=== PATIENT | male | born 1975 | race Caucasian/White ===

== ENCOUNTER 2016-06-19 19:23 | Emergency (ER) | payer OTHER ==
[2016-06-19] MEDS ORDERED: PHENERGAN 25 MG/ML VIAL IM STA (19:27)
[2016-06-19 19:30] VITALS: BP 113/76; TEMP 98.8; BMI 24.3
[2016-06-19 20:00] LABS: BASOPHILS # (AUTO) 0.1 K/uL (0-0.2); EOSINOPHILS # (AUTO) 0.5 K/ul (0.0-0.7); EOSINOPHILS % (AUTO) 5.8 % (0.0-7.0); HEMATOCRIT 46.3 % (42.0-52.0); HEMOGLOBIN 15.6 g/dl (14.0-18.0); IMMATURE GRANULOCYTE % (AUTO) 0.4 % (0.0-5.0); LYMPHOCYTES # (AUTO) 2.8 K/uL (0.60-3.4); LYMPHOCYTES % (AUTO) 31.6 (10.0-50.0); MEAN CORPUSCULAR HEMOGLOBIN 28.8 pg (27.0-31.0); MEAN CORPUSCULAR HGB CONC 33.7 (31.8-35.4); MEAN CORPUSCULAR VOLUME 85.4 fl (80.0-94.0); MONOCYTES # (AUTO) 0.8 K/uL (0.4-2.0); MONOCYTES % (AUTO) 9.2 (0-10); NEUTROPHILS # (AUTO) 4.6 K/ul (2.0-6.9); PLATELET COUNT 249 10^3/uL (140-440); RED BLOOD COUNT 5.42 10^6/ul (4.70-6.10); WHITE BLOOD COUNT 8.93 K/ul (4.2-10.2)
[2016-06-19 20:06] LABS: BILIRUBIN,URINE Negative (NEGATIVE); KETONES,URINE Negative (NEGATIVE); LEUKOCYTE ESTERASE ,URINE Negative (NEGATIVE); NITRITE,URINE Negative (NEGATIVE); PH,URINE 5.5 (5-9); PROTEIN,URINE Negative (NEGATIVE); URINE, BLOOD Negative (NEGATIVE)
[2016-06-19 20:07] LABS: ADD URINE MICROSCOPIC NO
--- NOTE | 2016-06-19 20:13 | ED.PDOC ---
General ED Provider: Dr. TY STALLINGS-ER Chief Complaint: Nausea/Vomiting Stated Complaint: im vomitnig and having body aches Time Seen by Physician: 19:30 Mode of Arrival: Walk-In Information Source: Patient Exam Limitations: No limitations Primary Care Provider: JUSTIN GREENFIELD Nursing and Triage Documentation Reviewed and Agree: Yes GI Complaint Exam - Vomiting/Diarrhea Complaint/Exam Onset/Duration: 2 days Symptoms Are: Still present Episodes of Vomiting over last 24 Hours: 3 Episodes of Diarrhea Over Last 24 Hours: 2 Initial Severity: Mild Current Severity: Mild Character of Vomiting: Reports: Non-bilious Character of Diarrhea: Reports: Watery Aggravating: Reports: None Alleviating: Reports: None Associated Signs and Symptoms: Denies: Dizziness, Light-headedness, Melena, Hematemesis, Fever, Abdominal pain, Cramping Kussmaul Respirations Present: No Differential Diagnoses: Dehydration, Viral Gastroenteritis Review of Systems - Review Of Systems Constitutional: Reports: No symptoms Eyes: Reports: No symptoms Ears, Nose, Mouth, Throat: Reports: No symptoms Respiratory: Reports: No symptoms Cardiac: Reports: No symptoms GI: Reports: Diarrhea, Nausea, Vomiting : Reports: No symptoms Musculoskeletal: Reports: No symptoms Skin: Reports: No symptoms Neurological: Reports: No symptoms Endocrine: Reports: No symptoms Hematologic/Lymphatic: Reports: No symptoms All Other Systems: Reviewed and Negative Past Medical History - Past Medical History Previously Healthy: Yes Endocrine: Reports: None, Dyslipidemia Cardiovascular: Reports: None Respiratory: Reports: Asthma Hematological: Reports: None Gastrointestinal: Reports: None Genitourinary: Reports: None Neuro/Psych: Reports: Migraine, Seizure, Anxiety, Depression Musculoskeletal: Reports: None Cancer: Reports: None 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 - Surgical History General Surgical History: Reports: Tonsillectomy, Adenoidectomy, Orthopedic ( WRIST SURGERY), Other (EYE, EAR), Unknown - Family History Family History: Reports: Unknown - Social History Smoking Status: Current every day smoker, Heavy tobacco smoker Hx Substance Use: No Alcohol Screening: None - Immunizations Tetanus Shot up to Date: Yes Physical Exam - Physical Exam Appearance: Well-appearing Eyes: CIARA, EOMI, Conjunctiva clear ENT: Ears normal, Nose normal, Oropharynx normal Neck: Supple Respiratory: Airway patent, Breath sounds clear, Breath sounds equal, Respirations nonlabored Cardiovascular: RRR, Pulses normal, No rub, No murmur GI/: Soft, Nontender, No masses, Bowel sounds normal, No Organomegaly Musculoskeletal: Normal strength, ROM intact, No edema, No calf tenderness Skin: Warm, Dry, Normal color Neurological: Sensation intact, Motor intact, Reflexes intact, Cranial nerves intact, Alert, Oriented Psychiatric: Affect appropriate, Mood appropriate Interpretation - Radiology Interpretation Radiology Interpretation By: ED Physician Radiology Results: Negative Exam Interpreted: CXR Re-Evaluation - Re-Evaluation Time of Re-Evaluation: 20:12 Status: Improved (sitting on exam bed--texting--in nad) Vital Signs Stable: Yes Pain Level: 0 Appearance: NAD Lungs: Clear Skin: Warm and Dry Neuro: Alert and Oriented X3 CV: RRR Critical Care Note - Critical Care Note Total Time (mins): 0 Course - Course Hematology/Chemistry: 06/19/16 19:45 06/19/16 19:45 Orders, Labs, Meds: Lab Review 06/19/16 06/19/16 19:45 19:58 WBC 8.93 RBC 5.42 Hgb 15.6 Hct 46.3 MCV 85.4 MCH 28.8 MCHC 33.7 RDW Coeff of Deisi 12.9 Plt Count 249 Immature Gran % (Auto) 0.4 Neut % (Auto) 52.0 Lymph % (Auto) 31.6 [place] % (Auto) 9.2 Eos % (Auto) 5.8 Baso % (Auto) 1.0 Immature Gran # (Auto) 0.0 Neut # 4.6 Lymph # 2.8 [place] # 0.8 Eos # 0.5 Baso # 0.1 Sodium 141 Potassium 4.3 Chloride 107 Carbon Dioxide 23 Anion Gap 15.3 BUN 13 Creatinine 0.95 Estimated GFR (MDRD) 88.00 BUN/Creatinine Ratio 13.68 Glucose 102 H Calcium 9.4 Total Bilirubin 0.44 AST 18 ALT 36 Alkaline Phosphatase 76 Total Protein 7.1 Albumin 4.1 Globulin 3.0 Albumin/Globulin Ratio 1.37 Amylase 77 Lipase 25 Urine Color Yellow Urine Clarity Clear Urine pH 5.5 Ur Specific [place] 1.025 Urine Protein Negative Urine Glucose (UA) Negative Urine Ketones Negative Urine Blood Negative Urine Nitrite Negative Urine Bilirubin Negative Urine Urobilinogen 0.2 Ur Leukocyte Esterase Negative Influenza A (Rapid) Negative Influenza B (Rapid) Negative Orders Category Date Time Status AMYLASE Stat LAB 06/19/16 19:45 Completed CBC W/ AUTO DIFF Stat LAB 06/19/16 19:45 Completed COMPREHENSIVE METABOLIC PANEL Stat LAB 06/19/16 19:45 Completed LIPASE Stat LAB 06/19/16 19:45 Completed MOLECULAR GROUP A STREP Stat LAB 06/19/16 19:58 Results RAPID FLU A/B Stat LAB 06/19/16 19:58 Completed STREP SCREEN Stat LAB 06/19/16 19:58 Results URINALYSIS C & S IF INDICATED Stat LAB 06/19/16 19:58 Completed Promethazine HCl [Phenergan 25 mg/ml Vial] MEDS 06/19/16 19:27 Discontinued 25 mg IM ONCE STA ABDOMEN 1 VIEW Stat RADS 06/19/16 19:26 Taken CHEST, 2 VIEWS PA & LAT Stat RADS 06/19/16 19:26 Taken Medications Discontinued Medications Generic Name Dose Route Start Last Admin Trade Name Freq PRN Reason Stop Dose Admin Promethazine HCl 25 mg 06/19/16 19:27 06/19/16 19:52 Phenergan 25 Mg/Ml Vial IM 06/19/16 19:28 25 mg ONCE STA Administration Vital Signs: Temp Pulse Resp BP Pulse Ox 06/19/16 19:24 98.8 F 89 18 113/76 99 Departure - Departure Time of Disposition: 20:28 Disposition: HOME SELF-CARE Discharge Problem: Enteritis Instructions: Enteritis (ED) Condition: Good Pt referred to PMD for follow-up: Yes Additional Instructions: f/u with pcp==clear liquids for 24hrs and advance Allergies/Adverse Reactions: Allergies tramadol Allergy (Severe, Verified 06/19/16 19:30) itching all over dextromethorphan HBr [From NyQuil] Adverse Reaction (Verified 06/19/16 19:30) doxylamine [From NyQuil] Adverse Reaction (Verified 06/19/16 19:30) prochlorperazine edisylate [From Compazine] Adverse Reaction (Verified 06/19/16 19:30) prochlorperazine maleate [From Compazine] Adverse Reaction (Verified 06/19/16 19 :30) Itching pseudoephedrine HCl [From NyQuil] Adverse Reaction (Verified 06/19/16 19:30) Itching Home Medications: Ambulatory Orders Albuterol Sulfate [Proair Hfa] 2 puff IH Q4H PRN 11/26/15 Simvastatin 20 mg PO DAILY 02/19/16 Fluticasone Propionate 110 Mcg [Flovent Hfa 110 Mcg] 2 puff IH BID 02/29/16 Hydrocodone Bit/Acetaminophen [[place] 7.5-325] 1 tab PO DAILY PRN 05/27/16 Diphenhydramine HCl [Benadryl] 25 mg PO ONCE PRN 06/19/16 Disposition Discussed With: Patient
[2016-06-19 20:17] LABS: FLU INTERNAL QC INTERNAL QC VALID; RAPID FLU A NEGATIVE (NEGATIVE); RAPID FLU B NEGATIVE (NEGATIVE)
[2016-06-19 20:19] LABS: ALBUMIN 4.1 g/dL (3.4-5.0); ALBUMIN/GLOBULIN RATIO 1.37; ANION GAP 15.3; BILIRUBIN,TOTAL 0.44 mg/dL (0.00-1.20); BUN/CREATININE RATIO 13.68; CALCIUM 9.4 mg/dL (8.2-10.2); CREATININE 0.95 mg/dL (0.60-1.10); POTASSIUM 4.3 mmol/L (3.5-5.1); TOTAL PROTEIN 7.1 g/dL (6.4-8.2)
--- NOTE | 2016-06-19 22:31 | DI ---
EXAM: Two views of the chest. History: Fever. Comparison: Chest radiograph 07/05/2015 Findings: Heart size is normal. No focal consolidation. No appreciable pleural fluid and no pneum othorax. No acute osseous abnormalities. Impression: No acute cardiopulmonary process.
--- NOTE | 2016-06-19 22:34 | DI ---
EXAM: Single view of the abdomen. History: Fever and vomiting. Findings: Nonspecific but nonobstructive bowel gas pattern. No free intraperitoneal air. No suspi cious calcifications and no acute osseous abnormalities. Impression: No acute radiographic findings within the abdomen.
== END 2016-06-19 20:39 | disposition home or self-care (01) ==
LOC: ED 19:23
DX: K52.9 Noninfective gastroenteritis and colitis, unspecified (principal); F17.210 Nicotine dependence, cigarettes, uncomplicated
CPT/HCPCS: 36415; 80053; 81001; 82150; 83690; 85025; 87651; 87804; 87880; 96372; 99283

== ENCOUNTER 2016-07-17 23:54 | Emergency (ER) ==
[2016-07-17] MEDS ORDERED: DILAUDID 2 MG/ML SYRINGE IM STA (23:58)
[2016-07-17] MEDS ORDERED: DECADRON 4 MG/ML SDV IM STA (23:58)
[2016-07-17] MEDS ORDERED: PHENERGAN 25 MG/ML VIAL IM STA (23:58)
[2016-07-18 00:01] VITALS: BP 132/88; TEMP 98.4; BMI 25.0
--- NOTE | 2016-07-18 00:01 | ED.PDOC ---
General ED Provider: Dr. TY STALLINGS-ER Chief Complaint: Back Pain Stated Complaint: i go to pain managemnt for my lower back--its gotten worse tonight--it goes down both my legs--i didnt injure my back recently Time Seen by Physician: 00:00 Mode of Arrival: Walk-In Information Source: Patient Exam Limitations: No limitations Primary Care Provider: JUSTIN GREENFIELD Nursing and Triage Documentation Reviewed and Agree: Yes Musculoskeletal Complaint Exam - Back Pain Complaint/Exam Mechanism of Injury: Reports: No known trauma Onset/Duration: several days Symptoms Are: Still present Timing: Constant Episodes Lasting: Hours Initial Severity: Mild Current Severity: Moderate Location: Reports: Discrete (lumbar spine) Character: Reports: Dull, Aching Aggravating: Reports: Movements, Lifting, Bending, Walking Alleviating: Reports: None Associated Signs and Symptoms: Denies: Swelling, Redness, Bruising, Fever, Weakness, Numbness, Tingling, Abdominal pain, Flank pain, Bladder incontinence, Bowel incontinence, Weight loss, Pain with weight bearing Related History: Reports: Similar episode, Previous back injury AAA Risk Factors: Reports: None Cauda Equina Risk Factors: Reports: None Epidural Abcess Risk Factors: Reports: None Focal Tenderness: Yes Paraspinal Muscle Tenderness: No Paraspinal Muscle Spasm: No Scoliosis: No Lordosis: No Kyphosis: No SLR Test: Right Negative, Left Negative Hip Motion Testing Pain: Right Negative, Left Negative Focal Weakness: Present: None Focal Sensory Loss: Present: None Gait: Present: Normal Differential Diagnoses: Herniated Disk, Strain, Sprain Review of Systems - Review Of Systems Constitutional: Reports: No symptoms Eyes: Reports: No symptoms Ears, Nose, Mouth, Throat: Reports: No symptoms Respiratory: Reports: No symptoms Cardiac: Reports: No symptoms GI: Reports: No symptoms : Reports: No symptoms Musculoskeletal: Reports: Back pain Skin: Reports: No symptoms Neurological: Reports: No symptoms Endocrine: Reports: No symptoms Hematologic/Lymphatic: Reports: No symptoms All Other Systems: Reviewed and Negative Past Medical History - Past Medical History Previously Healthy: Yes Endocrine: Reports: None, Dyslipidemia Cardiovascular: Reports: None Respiratory: Reports: Asthma Hematological: Reports: None Gastrointestinal: Reports: None Genitourinary: Reports: None Neuro/Psych: Reports: Migraine, Seizure, Anxiety, Depression Musculoskeletal: Reports: None Cancer: Reports: None 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 - Surgical History General Surgical History: Reports: Tonsillectomy, Adenoidectomy, Orthopedic ( WRIST SURGERY), Other (EYE, EAR), Unknown - Family History Family History: Reports: Unknown - Social History Smoking Status: Current every day smoker, Heavy tobacco smoker Hx Substance Use: No Alcohol Screening: None Lives: With family Physical Exam - Physical Exam Appearance: Well-appearing, No pain distress, Well-nourished Pain Distress: Moderate Eyes: CIARA, EOMI, Conjunctiva clear ENT: Ears normal, Nose normal, Oropharynx normal Neck: Supple Respiratory: Airway patent, Breath sounds clear, Breath sounds equal, Respirations nonlabored Cardiovascular: RRR, Pulses normal, No rub, No murmur GI/: Soft, Nontender, No masses, Bowel sounds normal, No Organomegaly Musculoskeletal: Limited ROM Skin: Warm, Dry, Normal color Neurological: Sensation intact, Motor intact, Reflexes intact, Cranial nerves intact, Alert, Oriented Psychiatric: Affect appropriate, Mood appropriate Re-Evaluation - Re-Evaluation Time of Re-Evaluation: 00:30 Status: Improved Vital Signs Stable: Yes Pain Level: 1 Appearance: NAD Lungs: Clear Skin: Warm and Dry Neuro: Alert and Oriented X3 CV: RRR Critical Care Note - Critical Care Note Total Time (mins): 0 Course - Course Orders, Labs, Meds: Orders Category Date Time Status Dexamethasone 4 mg/ml Inj [Decadron 4 mg/ml Sdv] MEDS 07/17/16 23:58 Discontinued 4 mg IM ONCE STA Hydromorphone HCl/Pf [Dilaudid 2 mg/ml Syringe] MEDS 07/17/16 23:58 Discontinued 2 mg IM ONCE STA Promethazine HCl [Phenergan 25 mg/ml Vial] MEDS 07/17/16 23:58 Discontinued 25 mg IM ONCE STA Medications Discontinued Medications Generic Name Dose Route Start Last Admin Trade Name Freq PRN Reason Stop Dose Admin Dexamethasone Sodium Phosphate 4 mg 07/17/16 23:58 Decadron 4 Mg/Ml Sdv IM 07/17/16 23:59 ONCE STA Hydromorphone HCl 2 mg 07/17/16 23:58 Dilaudid 2 Mg/Ml Syringe IM 07/17/16 23:59 ONCE STA Promethazine HCl 25 mg 07/17/16 23:58 Phenergan 25 Mg/Ml Vial IM 07/17/16 23:59 ONCE STA Departure - Departure Time of Disposition: 00:02 Disposition: HOME SELF-CARE Discharge Problem: Low back pain Qualifiers: Chronicity: chronic Back pain laterality: unspecified Sciatica presence: with sciatica Sciatica laterality: bilateral sciatica Qualifier Code: (M54.41) Lumbago with sciatica, right side Instructions: Chronic Back Pain (ED) Condition: Good Pt referred to PMD for follow-up: Yes Additional Instructions: f/u with pain mangement Allergies/Adverse Reactions: Allergies tramadol Allergy (Severe, Verified 06/19/16 19:30) itching all over dextromethorphan HBr [From NyQuil] Adverse Reaction (Verified 06/19/16 19:30) doxylamine [From NyQuil] Adverse Reaction (Verified 06/19/16 19:30) prochlorperazine edisylate [From Compazine] Adverse Reaction (Verified 06/19/16 19:30) prochlorperazine maleate [From Compazine] Adverse Reaction (Verified 06/19/16 19 :30) Itching pseudoephedrine HCl [From NyQuil] Adverse Reaction (Verified 06/19/16 19:30) Itching Home Medications: Ambulatory Orders Albuterol Sulfate [Proair Hfa] 2 puff IH Q4H PRN 11/26/15 Simvastatin 20 mg PO DAILY 02/19/16 Fluticasone Propionate 110 Mcg [Flovent Hfa 110 Mcg] 2 puff IH BID 02/29/16 Hydrocodone Bit/Acetaminophen [[place] 7.5-325] 1 tab PO DAILY PRN 05/27/16 Diphenhydramine HCl [Benadryl] 25 mg PO ONCE PRN 06/19/16 Disposition Discussed With: Patient
== END 2016-07-18 00:37 | disposition home or self-care (01) ==
LOC: ED 23:54
DX: M54.41 Lumbago with sciatica, right side (principal); M54.42 Lumbago with sciatica, left side
CPT/HCPCS: 96372; 99282

== ENCOUNTER 2016-08-08 03:21 | Emergency (ER) ==
[2016-08-08 03:31] VITALS: BP 124/83; TEMP 97.7; BMI 25.1
[2016-08-08] MEDS ORDERED: BENADRYL IM STA (03:41)
[2016-08-08] MEDS ORDERED: PHENERGAN 25 MG/ML VIAL IM STA (03:41)
[2016-08-08] MEDS ORDERED: DILAUDID 2 MG/ML SYRINGE IM STA (03:41)
--- NOTE | 2016-08-08 03:44 | ED.PDOC ---
General ED Provider: Dr. TY STALLINGS-ER Chief Complaint: Headache Stated Complaint: iveg got a migraine=---jesus manuel been throwing up my norco Time Seen by Physician: 03:30 Mode of Arrival: Walk-In Information Source: Patient Exam Limitations: No limitations Primary Care Provider: JUSTIN GREENFIELD Nursing and Triage Documentation Reviewed and Agree: Yes Neurological Complaint Exam - Headache Complaint/Exam Onset: Gradual Duration: several hours Symptoms Are: Still present Timing: Constant Worst Headache Ever: No Initial Severity: Mild Current Severity: Moderate Location: Diffuse Character: Reports: Dull, Throbbing, Typical headache, Migraine Aggravating: Reports: Bright lights Alleviating: Reports: None Associated Signs and Symptoms: Reports: Nausea, Vomiting. Denies: Dizziness, Seizure, Sinus pressure, Fever, Neck pain, Neck stiffness, Decreased LOC, Visual changes Related History: Reports: Similar episode. Denies: Recent trauma, Remote trauma Related Surgical History: Reports: None SAH Risk Factors: Reports: None Meningitis Risk Factors: Reports: None SDH Risk Factors: Reports: Male Temporal Arteritis Risk Factors: Reports: Normal Head CT Within Last 12 Months: No Fundoscopic Exam: Present: Normal Findings Papilledema Present: No Temporal Artery Tenderness: Present: None Sinus Tenderness: Present: None TMJ Tenderness: Present: None Glascow Coma Scale (see protocol): 15 Meningeal Signs Positive: No Pain on Passive Flexion-Positive Kernig's: No ROM Limited In: No Limitiations Focal Weakness: Present: None Focal Sensory Loss: Present: None Gait: Normal Nystagmus Present: No Gag Reflex Present: Yes [id number]: Normal Findings Romberg Test Positive: No Babinski Sign: Negative Right, Negative Left Heel to Toe Normal: Yes Differential Diagnoses: Migraine Review of Systems - Review Of Systems Constitutional: Reports: No symptoms Eyes: Reports: No symptoms Ears, Nose, Mouth, Throat: Reports: No symptoms Respiratory: Reports: No symptoms Cardiac: Reports: No symptoms GI: Reports: Nausea, Vomiting : Reports: No symptoms Musculoskeletal: Reports: No symptoms Skin: Reports: No symptoms Neurological: Reports: Headache Endocrine: Reports: No symptoms Hematologic/Lymphatic: Reports: No symptoms All Other Systems: Reviewed and Negative Past Medical History - Past Medical History Previously Healthy: Yes Endocrine: Reports: None, Dyslipidemia Cardiovascular: Reports: None Respiratory: Reports: Asthma Hematological: Reports: None Gastrointestinal: Reports: None Genitourinary: Reports: None Neuro/Psych: Reports: Migraine, Seizure, Anxiety, Depression Musculoskeletal: Reports: None Cancer: Reports: None 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 - Surgical History General Surgical History: Reports: Tonsillectomy, Adenoidectomy, Orthopedic ( WRIST SURGERY), Other (EYE, EAR), Unknown - Family History Family History: Reports: Unknown - Social History Smoking Status: Current every day smoker, Heavy tobacco smoker Hx Substance Use: No Alcohol Screening: None - Immunizations Tetanus Shot up to Date: Yes (2013) Physical Exam - Physical Exam Appearance: Well-appearing, No pain distress, Well-nourished Pain Distress: Moderate Eyes: CIARA, EOMI, Conjunctiva clear ENT: Ears normal, Nose normal, Oropharynx normal Neck: Supple Respiratory: Airway patent, Breath sounds clear, Breath sounds equal, Respirations nonlabored Cardiovascular: RRR GI/: Soft, Nontender, No masses, Bowel sounds normal, No Organomegaly Musculoskeletal: Normal strength, ROM intact, No edema, No calf tenderness Skin: Warm Neurological: Sensation intact, Motor intact, Reflexes intact, Cranial nerves intact, Alert, Oriented Psychiatric: Affect appropriate, Mood appropriate Re-Evaluation - Re-Evaluation Time of Re-Evaluation: 04:15 Status: Improved Vital Signs Stable: Yes Pain Level: 1 Appearance: NAD Lungs: Clear Skin: Warm and Dry Neuro: Alert and Oriented X3 CV: RRR Critical Care Note - Critical Care Note Total Time (mins): 0 Course - Course Orders, Labs, Meds: Orders Category Date Time Status Diphenhydramine Inj [Benadryl] MEDS 08/08/16 03:41 Stat 50 mg IM ONCE STA Hydromorphone HCl/Pf [Dilaudid 2 mg/ml Syringe] MEDS 08/08/16 03:41 Stat 2 mg IM ONCE STA Promethazine HCl [Phenergan 25 mg/ml Vial] MEDS 08/08/16 03:41 Stat 25 mg IM ONCE STA Medications Generic Name Dose Route Start Last Admin Trade Name Freq PRN Reason Stop Dose Admin Diphenhydramine HCl 50 mg 08/08/16 03:41 Benadryl IM 08/08/16 03:42 ONCE STA Hydromorphone HCl 2 mg 08/08/16 03:41 Dilaudid 2 Mg/Ml Syringe IM 08/08/16 03:42 ONCE STA Promethazine HCl 25 mg 08/08/16 03:41 Phenergan 25 Mg/Ml Vial IM 08/08/16 03:42 ONCE STA Vital Signs: Temp Pulse Resp BP Pulse Ox 08/08/16 03:25 97.7 F 99 H 20 124/83 96 Departure - Departure Time of Disposition: 03:44 Disposition: HOME SELF-CARE Discharge Problem: Migraine headache Qualifiers: Migraine type: unspecified Status migrainosus presence: without status migrainosus Intractability: not intractable Qualifier Code: (G43.909) Migraine, unspecified, not intractable, without status migrainosus Instructions: Migraine Headache (ED) Condition: Good Pt referred to PMD for follow-up: Yes Additional Instructions: f/u withpcp Allergies/Adverse Reactions: Allergies tramadol Allergy (Severe, Verified 08/08/16 03:31) itching all over dextromethorphan HBr [From NyQuil] Adverse Reaction (Verified 08/08/16 03:31) doxylamine [From NyQuil] Adverse Reaction (Verified 08/08/16 03:31) prochlorperazine edisylate [From Compazine] Adverse Reaction (Verified 08/08/16 03:31) prochlorperazine maleate [From Compazine] Adverse Reaction (Verified 08/08/16 03 :31) Itching pseudoephedrine HCl [From NyQuil] Adverse Reaction (Verified 08/08/16 03:31) Itching Home Medications: Ambulatory Orders Albuterol Sulfate [Proair Hfa] 2 puff IH Q4H PRN 11/26/15 Simvastatin 20 mg PO DAILY 02/19/16 Fluticasone Propionate 110 Mcg [Flovent Hfa 110 Mcg] 2 puff IH BID 02/29/16 Hydrocodone Bit/Acetaminophen [[place] 7.5-325] 1 tab PO TID 05/27/16 Diphenhydramine HCl [Benadryl] 25 mg PO ONCE PRN 06/19/16 Levetiracetam [Keppra] 750 mg PO BID 08/08/16 Disposition Discussed With: Patient
== END 2016-08-08 04:30 | disposition home or self-care (01) ==
LOC: ED 03:21
DX: G43.909 Migraine, unspecified, not intractable, without status migrainosus (principal); F17.210 Nicotine dependence, cigarettes, uncomplicated
CPT/HCPCS: 96372; 99282

== ENCOUNTER 2016-09-08 03:24 | Emergency (ER) ==
[2016-09-08 03:39] VITALS: BP 126/85; TEMP 98.4; BMI 25.4
[2016-09-08] MEDS ORDERED: AUGMENTIN 875-125 MG TAB PO STA (04:27)
[2016-09-08] MEDS ORDERED: ZOFRAN TAB PO STA (04:27)
[2016-09-08] MEDS ORDERED: NORCO 7.5-325 PO STA (04:27)
--- NOTE | 2016-09-08 04:30 | ED.PDOC ---
General ED Provider: Dr. TY STALLINGS-ER Chief Complaint: Earache Stated Complaint: my ear hurts Time Seen by Physician: 03:45 Mode of Arrival: Walk-In Information Source: Patient Exam Limitations: No limitations Primary Care Provider: JUSTIN GREENFIELD Nursing and Triage Documentation Reviewed and Agree: Yes EENT Complaint Exam - Ear Complaint/Exam Onset/Duration: less than 24hrs Symptoms Are: Still present Timing: Constant Initial Severity: Mild Current Severity: Moderate Character: Reports: Dull pain, Aching pain Alleviating: Reports: None Associated Signs and Symptoms: Reports: Hearing loss, URI symptoms, Pain to external ear. Denies: Ear trauma, Ear swelling, Discharge, Fever, Bleeding, Sore throat, Headache, Foreign body sensation, Rash, Pain to external face Ear Surgical History: Prior ENT Surgery Vesicles to External Pinna: No Vesicles to Tragus: No Tympanic Membrane: Erythema, Dullness Differential Diagnoses: Cerumen Impaction, Otitis Media Review of Systems - Review Of Systems Constitutional: Reports: No symptoms Eyes: Reports: No symptoms Ears, Nose, Mouth, Throat: Reports: Ear pain Respiratory: Reports: No symptoms Cardiac: Reports: No symptoms GI: Reports: No symptoms : Reports: No symptoms Musculoskeletal: Reports: No symptoms Skin: Reports: No symptoms Neurological: Reports: No symptoms Endocrine: Reports: No symptoms Hematologic/Lymphatic: Reports: No symptoms All Other Systems: Reviewed and Negative Past Medical History - Past Medical History Previously Healthy: Yes Endocrine: Reports: None, Dyslipidemia Cardiovascular: Reports: None Respiratory: Reports: Asthma Hematological: Reports: None Gastrointestinal: Reports: None Genitourinary: Reports: None Neuro/Psych: Reports: Migraine, Seizure, Anxiety, Depression Musculoskeletal: Reports: None Cancer: Reports: None 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 - Surgical History General Surgical History: Reports: Tonsillectomy, Adenoidectomy, Orthopedic ( WRIST SURGERY), Other (EYE, EAR), Unknown - Family History Family History: Reports: Unknown - Social History Smoking Status: Current every day smoker, Heavy tobacco smoker Hx Substance Use: No Alcohol Screening: None - Immunizations Tetanus Shot up to Date: Yes (11/2013 TDAP) Physical Exam - Physical Exam Appearance: Well-appearing, No pain distress, Well-nourished Pain Distress: Moderate Eyes: CIARA, EOMI, Conjunctiva clear ENT: Nose normal, Oropharynx normal, Rhinorrhea, Erythema (cerumen impacted in left ext canal--i was able to visual her left tm --its erythematous) Neck: Supple Respiratory: Airway patent, Breath sounds clear, Breath sounds equal, Respirations nonlabored Cardiovascular: RRR, Pulses normal, No rub, No murmur GI/: Soft, Nontender, No masses, Bowel sounds normal, No Organomegaly Musculoskeletal: Normal strength, ROM intact, No edema, No calf tenderness Skin: Warm, Dry, Normal color Neurological: Sensation intact, Motor intact, Reflexes intact, Cranial nerves intact, Alert, Oriented Psychiatric: Affect appropriate, Mood appropriate Critical Care Note - Critical Care Note Total Time (mins): 0 Course - Course Orders, Labs, Meds: Orders Category Date Time Status Amoxicillin/Potassium Clav [Augmentin 875-125 mg Tab] MEDS 09/08/16 04:27 Stat 1 tab PO ONCE STA Hydrocodone Bit/Acetaminophen [[place] 7.5-325] MEDS 09/08/16 04:27 Stat 1 tab PO ONCE STA Ondansetron HCl [Zofran Tab] MEDS 09/08/16 04:27 Stat 4 mg PO ONCE STA Vital Signs: Temp Pulse Resp BP Pulse Ox 09/08/16 03:32 98.4 F 93 H 18 126/85 95 Departure - Departure Time of Disposition: 04:31 Disposition: HOME SELF-CARE Discharge Problem: Cerumen impaction Qualifiers: Laterality: left Qualifier Code: (H61.22) Impacted cerumen, left ear Otitis media Qualifiers: Otitis media type: unspecified Laterality: left Chronicity: unspecified Qualifier Code: (H66.92) Otitis media, unspecified, left ear Instructions: Cerumen Impaction (ED) Condition: Good Pt referred to PMD for follow-up: No Additional Instructions: augmentin 875mg bid x 7days--use your norco at home for pain--you need to see dr rivera to help with removing the cerumen... Allergies/Adverse Reactions: Allergies tramadol Allergy (Severe, Verified 09/08/16 03:39) itching all over dextromethorphan HBr [From NyQuil] Adverse Reaction (Verified 09/08/16 03:39) doxylamine [From NyQuil] Adverse Reaction (Verified 09/08/16 03:39) prochlorperazine edisylate [From Compazine] Adverse Reaction (Verified 09/08/16 03:39) prochlorperazine maleate [From Compazine] Adverse Reaction (Verified 09/08/16 03 :39) Itching pseudoephedrine HCl [From NyQu[place]] Adverse Reaction (Verified 09/08/16 03:39) Itching Home Medications: Ambulatory Orders Albuterol Sulfate [Proair Hfa] 2 puff IH Q4H PRN 11/26/15 Simvastatin 20 mg PO DAILY 02/19/16 Fluticasone Propionate 110 Mcg [Flovent Hfa 110 Mcg] 2 puff IH BID 02/29/16 Hydrocodone Bit/Acetaminophen [[place] 7.5-325] 1 tab PO TID 05/27/16 Diphenhydramine HCl [Benadryl] 25 mg PO ONCE PRN 06/19/16 Levetiracetam [Keppra] 1,000 mg PO BID 08/08/16 Disposition Discussed With: Patient
== END 2016-09-08 04:45 | disposition home or self-care (01) ==
LOC: ED 03:24
DX: H66.92 Otitis media, unspecified, left ear (principal); H61.22 Impacted cerumen, left ear; F17.210 Nicotine dependence, cigarettes, uncomplicated
CPT/HCPCS: 99283

== ENCOUNTER 2016-10-29 18:54 | Emergency (ER) ==
[2016-10-29 19:00] VITALS: BP 126/78; TEMP 97.8; BMI 25.0
--- NOTE | 2016-10-29 19:10 | ED.PDOC ---
General ED Provider: Dr. TY STALLINGS-ER Chief Complaint: Headache Stated Complaint: jesus manuel got a bad migraine canseco Time Seen by Physician: 19:08 Mode of Arrival: Walk-In Information Source: Patient Exam Limitations: No limitations Primary Care Provider: JUSTIN GREENFIELD Nursing and Triage Documentation Reviewed and Agree: Yes Neurological Complaint Exam - Headache Complaint/Exam Onset: Gradual Duration: several hours Symptoms Are: Still present Timing: Constant Episodes Lasting: Hours Worst Headache Ever: No Initial Severity: Mild Current Severity: Moderate Location: Diffuse Character: Reports: Dull, Throbbing, Pressure, Migraine Aggravating: Reports: Bright lights Alleviating: Reports: None Associated Signs and Symptoms: Reports: Nausea, Vomiting. Denies: Dizziness, Seizure, Sinus pressure, Fever, Neck pain, Neck stiffness, Decreased LOC, Visual changes Related History: Reports: Similar episode Related Surgical History: Reports: None SAH Risk Factors: Reports: Smoking Meningitis Risk Factors: Reports: None Temporal Arteritis Risk Factors: Reports: Normal Head CT Within Last 12 Months: Yes Fundoscopic Exam: Present: Normal Findings Papilledema Present: No Temporal Artery Tenderness: Present: None Sinus Tenderness: Present: None TMJ Tenderness: Present: None Glascow Coma Scale (see protocol): 15 Meningeal Signs Positive: No Pain on Passive Flexion-Positive Kernig's: No ROM Limited In: No Limitiations Focal Weakness: Present: None Focal Sensory Loss: Present: None Gait: Normal Nystagmus Present: No Gag Reflex Present: Yes [id number]: Normal Findings Romberg Test Positive: No Babinski Sign: Negative Right, Negative Left Heel to Toe Normal: Yes Differential Diagnoses: Migraine Review of Systems - Review Of Systems Constitutional: Reports: No symptoms Eyes: Reports: No symptoms Ears, Nose, Mouth, Throat: Reports: No symptoms Respiratory: Reports: No symptoms Cardiac: Reports: No symptoms GI: Reports: Nausea : Reports: No symptoms Musculoskeletal: Reports: No symptoms Skin: Reports: No symptoms Neurological: Reports: Headache Endocrine: Reports: No symptoms Hematologic/Lymphatic: Reports: No symptoms All Other Systems: Reviewed and Negative Past Medical History - Past Medical History Previously Healthy: Yes Endocrine: Reports: None, Dyslipidemia Cardiovascular: Reports: None Respiratory: Reports: Asthma Hematological: Reports: None Gastrointestinal: Reports: None Genitourinary: Reports: None Neuro/Psych: Reports: Migraine, Seizure, Anxiety, Depression Musculoskeletal: Reports: None Cancer: Reports: None 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 - Surgical History General Surgical History: Reports: Tonsillectomy, Adenoidectomy, Orthopedic ( WRIST SURGERY), Other (EYE, EAR), Unknown - Family History Family History: Reports: Unknown - Social History Smoking Status: Current every day smoker, Heavy tobacco smoker Hx Substance Use: No Alcohol Screening: None Lives: With family - Immunizations Tetanus Shot up to Date: No Physical Exam - Physical Exam Appearance: Well-appearing, No pain distress, Well-nourished Pain Distress: Moderate Eyes: CIARA, EOMI, Conjunctiva clear ENT: Ears normal, Nose normal, Oropharynx normal Neck: Supple Respiratory: Airway patent Cardiovascular: RRR, Pulses normal, No rub, No murmur GI/: Soft, Nontender, No masses, Bowel sounds normal, No Organomegaly Musculoskeletal: Normal strength Skin: Warm, Dry, Normal color Neurological: Sensation intact Psychiatric: Affect appropriate, Mood appropriate Re-Evaluation - Re-Evaluation Time of Re-Evaluation: 19:30 Status: Improved Vital Signs Stable: Yes Pain Level: 1 Appearance: NAD Lungs: Clear Skin: Warm and Dry Neuro: Alert and Oriented X3 CV: RRR Critical Care Note - Critical Care Note Total Time (mins): 0 Course - Course Orders, Labs, Meds: Orders Category Date Time Status Hydromorphone HCl/Pf [Dilaudid 2 mg/ml Syringe] MEDS 10/29/16 19:07 Discontinued 2 mg IM ONCE STA Ondansetron HCl/Pf [Zofran 4 mg/2 ml] MEDS 10/29/16 19:07 Discontinued 4 mg IM ONCE STA Medications Discontinued Medications Generic Name Dose Route Start Last Admin Trade Name Freq PRN Reason Stop Dose Admin Hydromorphone HCl 2 mg 10/29/16 19:07 Dilaudid 2 Mg/Ml Syringe IM 10/29/16 19:08 ONCE STA Ondansetron HCl 4 mg 10/29/16 19:07 Zofran 4 Mg/2 Ml IM 10/29/16 19:08 ONCE STA Vital Signs: Temp Pulse Resp BP Pulse Ox 10/29/16 18:55 97.8 F 94 H 16 126/78 96 Departure - Departure Time of Disposition: 19:10 Disposition: HOME SELF-CARE Discharge Problem: Migraine headache Qualifiers: Migraine type: without aura Status migrainosus presence: without status migrainosus Intractability: not intractable Qualifier Code: (G43.009) Migraine without aura, not intractable, without status migrainosus Instructions: Migraine Headache (ED) Condition: Good Pt referred to PMD for follow-up: Yes Additional Instructions: f/u with pcp Allergies/Adverse Reactions: Allergies tramadol Allergy (Severe, Verified 10/29/16 18:59) itching all over dextromethorphan HBr [From NyQuil] Adverse Reaction (Verified 10/29/16 18:59) doxylamine [From NyQuil] Adverse Reaction (Verified 10/29/16 18:59) prochlorperazine edisylate [From Compazine] Adverse Reaction (Verified 10/29/16 18:59) prochlorperazine maleate [From Compazine] Adverse Reaction (Verified 10/29/16 18 :59) Itching pseudoephedrine HCl [From NyQuil] Adverse Reaction (Verified 10/29/16 18:59) Itching Home Medications: Ambulatory Orders Albuterol Sulfate [Proair Hfa] 2 puff IH Q4H PRN 11/26/15 Simvastatin 20 mg PO DAILY 02/19/16 Fluticasone Propionate 110 Mcg [Flovent Hfa 110 Mcg] 2 puff IH BID 02/29/16 Hydrocodone Bit/Acetaminophen [[place] 7.5-325] 1 tab PO TID 05/27/16 Diphenhydramine HCl [Benadryl] 25 mg PO ONCE PRN 06/19/16 Levetiracetam [Keppra] 1,000 mg PO BID 08/08/16 Disposition Discussed With: Patient
[2016-10-29] MEDS: ZOFRAN 4 MG/2 ML IM STA (19:49)
[2016-10-29] MEDS: DILAUDID 2 MG/ML SYRINGE IM STA (19:49)
== END 2016-10-29 20:15 | disposition home or self-care (01) ==
LOC: ED 18:54
DX: G43.009 Migraine without aura, not intractable, without status migrainosus (principal)
CPT/HCPCS: 96372; 99283

== ENCOUNTER 2016-11-10 15:42 | Emergency (ER) ==
[2016-11-10 15:58] VITALS: BMI 26.5
[2016-11-10] MEDS ORDERED: VALIUM SYRINGE IVP STA (16:09)
[2016-11-10] MEDS ORDERED: KEPPRA 1,000 MG in SODIUM CHLORIDE 100 ML IV STA (16:09)
[2016-11-10 16:44] LABS: BASOPHILS # (AUTO) 0.1 K/uL (0-0.2); EOSINOPHILS # (AUTO) 0.3 K/ul (0.0-0.7); HEMATOCRIT 40.8 % (42.0-52.0); HEMOGLOBIN 13.9 g/dl (14.0-18.0); LYMPHOCYTES # (AUTO) 3.8 K/uL (0.60-3.4); LYMPHOCYTES % (AUTO) 45.6 (10.0-50.0); MEAN CORPUSCULAR HEMOGLOBIN 29.4 pg (27.0-31.0); MEAN CORPUSCULAR HGB CONC 34.1 (31.8-35.4); MEAN CORPUSCULAR VOLUME 86.4 fl (80.0-94.0); MONOCYTES # (AUTO) 0.9 K/uL (0.4-2.0); MONOCYTES % (AUTO) 10.5 (0-10); NEUTROPHILS # (AUTO) 3.2 K/ul (2.0-6.9); NEUTROPHILS % (AUTO) 38.9; PLATELET COUNT 227 10^3/uL (140-440); RED BLOOD COUNT 4.72 10^6/ul (4.70-6.10); WHITE BLOOD COUNT 8.22 K/ul (4.2-10.2)
--- NOTE | 2016-11-10 16:51 | CT ---
EXAM: CT head without contrast. HISTORY: Seizure. COMPARISON: 02/10/2016. TECHNIQUE: Multiple axial images of the brain were obtained from the skull base through the vertex without intravenous contrast. FINDINGS: There is no intracranial hemorrhage or extraaxial collection. The gil-white differentia tion is maintained without evidence for acute large vascular territory infarction. The cortical sul ci and basal cisterns are well visualized. There is no hydrocephalus, mass effect, or midline shift . Mild ethmoid sinus mucosal thickening noted. Small polyp or retention cyst noted in the right ma xillary sinus. Otherwise, the paranasal sinuses and mastoid air cells are clear. The calvarium is intact. Since the prior study, there has been no significant interval change. IMPRESSION: No acute intracranial abnormality.
[2016-11-10 17:03] LABS: ALBUMIN 3.4 g/dL (3.4-5.0); ALBUMIN/GLOBULIN RATIO 1.26; ANION GAP 9.8; BILIRUBIN,TOTAL 0.33 mg/dL (0.00-1.20); BUN/CREATININE RATIO 16.04; CALCIUM 8.7 mg/dL (8.2-10.2); CREATININE 0.81 mg/dL (0.60-1.10); POTASSIUM 3.8 mmol/L (3.5-5.1); TOTAL PROTEIN 6.1 g/dL (6.4-8.2)
--- NOTE | 2016-11-10 17:37 | ED.PDOC ---
General ED Provider: Dr. TY STALLINGS-ER Chief Complaint: Seizure Stated Complaint: jesus manuel been out of my seizure meds for 3 days--i had 4 seizures today--my is picking up my seizure meds today Time Seen by Physician: 15:55 Mode of Arrival: Walk-In Information Source: Patient Exam Limitations: No limitations Primary Care Provider: JUSTIN GREENFIELD Nursing and Triage Documentation Reviewed and Agree: Yes Neurological Complaint Exam - Seizure Complaint/Exam Onset/Duration: today Symptoms Are: Resolved Timing: Intermittent Episodes Lasting: Seconds Single or Multiple Episode: multiple Failed to Regain Consciousness: No Severity: Self-limited Location: All extremities Character: Generalized Aggravating: Reports: Medication non-compliance Alleviating: Reports: Medication Associated Signs and Symptoms: Denies: Anxiety, Emotional distress, Impaired speech, Bladder incontinence, Bowel incontinence, Trauma, Illness, Vomiting, Lethargy, Apnea Related History: Reports: Similar episode SDH Risk Factors: Reports: Male Related Surgical History: Reports: None Active Seizure: Tonic-clonic Carotid Bruit Present: No Cephalohematoma Present: No Tongue Bitten: No Neck Pain Present: No Glascow Coma Scale (see protocol): 15 Nystagmus Present: No Gag Reflex Present: Yes Speech: Present: Normal Findings Aphasia: Present: None Meningeal Signs Positive: No Focal Weakness: Present: None Focal Sensory Loss: Reports: None Gait: Normal [id number]: Normal Findings Pronator Drift: Present: None Romberg Test Positive: No Babinski Sign: Negative Right, Negative Left Heel to Toe Normal: Yes Signs of Injury: Present: Normal findings Differential Diagnoses: Seizure Disorder Review of Systems - Review Of Systems Constitutional: Reports: No symptoms Eyes: Reports: No symptoms Ears, Nose, Mouth, Throat: Reports: No symptoms Respiratory: Reports: No symptoms Cardiac: Reports: No symptoms GI: Reports: No symptoms : Reports: No symptoms Musculoskeletal: Reports: No symptoms Skin: Reports: No symptoms Neurological: Reports: Headache, Tonic-Clonic seizures Endocrine: Reports: No symptoms Hematologic/Lymphatic: Reports: No symptoms All Other Systems: Reviewed and Negative Past Medical History - Past Medical History Previously Healthy: Yes Endocrine: Reports: None, Dyslipidemia Cardiovascular: Reports: None Respiratory: Reports: Asthma Hematological: Reports: None Gastrointestinal: Reports: None Genitourinary: Reports: None Neuro/Psych: Reports: Migraine, Seizure, Anxiety, Depression Musculoskeletal: Reports: None Cancer: Reports: None 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 - Surgical History General Surgical History: Reports: Tonsillectomy, Adenoidectomy, Orthopedic ( WRIST SURGERY), Other (EYE, EAR), Unknown - Family History Family History: Reports: Unknown - Social History Smoking Status: Current every day smoker, Heavy tobacco smoker Hx Substance Use: No Alcohol Screening: None Lives: With family Physical Exam - Physical Exam Appearance: Well-appearing, No pain distress, Well-nourished Eyes: CIARA, EOMI, Conjunctiva clear ENT: Ears normal, Nose normal, Oropharynx normal Neck: Supple Respiratory: Airway patent, Breath sounds clear, Breath sounds equal, Respirations nonlabored Cardiovascular: RRR, Pulses normal, No rub, No murmur GI/: Soft, Nontender, No masses, Bowel sounds normal, No Organomegaly Musculoskeletal: Normal strength, ROM intact, No edema, No calf tenderness Skin: Warm, Dry, Normal color Neurological: Sensation intact, Motor intact, Reflexes intact, Cranial nerves intact, Alert, Oriented Psychiatric: Affect appropriate, Mood appropriate Interpretation - Radiology Interpretation Radiology Interpretation By: Radiologist Radiology Results: Negative Exam Interpreted: CT Scan Re-Evaluation - Re-Evaluation Time of Re-Evaluation: 18:20 Status: Unchanged, Improved (sleeping quietly --no seizure activity) Vital Signs Stable: Yes Pain Level: 0 Appearance: NAD Lungs: Clear Skin: Warm and Dry Neuro: Alert and Oriented X3 CV: RRR Physician Notification - Case Discussed Physician Notified: dr wilkins 7pm--advised if no seizure activity at 10pm--he can be discharged Time of Notification: 19:00 Critical Care Note - Critical Care Note Total Time (mins): 0 Course - Course Hematology/Chemistry: 11/10/16 16:40 11/10/16 16:40 Orders, Labs, Meds: Lab Review 11/10/16 16:40 WBC 8.22 RBC 4.72 Hgb 13.9 L Hct 40.8 L MCV 86.4 MCH 29.4 MCHC 34.1 RDW Coeff of [place] 13.3 Plt Count 227 Immature Gran % (Auto) 1.0 Neut % (Auto) 38.9 Lymph % (Auto) 45.6 [place] % (Auto) 10.5 H Eos % (Auto) 3.0 Baso % (Auto) 1.0 Immature Gran # (Auto) 0.1 Neut # 3.2 Lymph # 3.8 H [place] # 0.9 Eos # 0.3 Baso # 0.1 Sodium 138 Potassium 3.8 Chloride 107 Carbon Dioxide 25 Anion Gap 9.8 BUN 13 Creatinine 0.81 Estimated GFR (MDRD) 106.00 BUN/Creatinine Ratio 16.04 Glucose 85 Calcium 8.7 Magnesium 2.0 Total Bilirubin 0.33 AST 22 ALT 36 Alkaline Phosphatase 65 Total Protein 6.1 L Albumin 3.4 Globulin 2.7 Albumin/Globulin Ratio 1.26 Orders Category Date Time Status IV [ED IV/MEDIPORT/POWERPORT] .ONCE EMERGENCY 11/10/16 16:08 Active CBC W/ AUTO DIFF Stat LAB 11/10/16 16:40 Completed COMPREHENSIVE METABOLIC PANEL Stat LAB 11/10/16 16:40 Completed MAGNESIUM Stat LAB 11/10/16 16:40 Completed 0.9 % Sodium Chloride [Saline Flush] MEDS 11/10/16 16:08 Active 1 syr IVF PRN PRN Diazepam Syringe [Valium Syringe] MEDS 11/10/16 16:09 Discontinued 5 mg IVP ONCE STA Levetiracetam Inj [Keppra] 1,000 mg MEDS 11/10/16 16:09 Discontinued 0.9 % Sodium Chloride [Sodium Chloride] [address] HEAD W/O CONTRAST Stat RADS 11/10/16 16:08 Completed Medications Generic Name Dose Route Start Last Admin Trade Name Freq PRN Reason Stop Dose Admin Sodium Chloride 1 syr 11/10/16 16:08 11/10/16 16:44 Saline Flush IVF 1 syr PRN PRN Administration To flush IV Discontinued Medications Generic Name Dose Route Start Last Admin Trade Name Freq PRN Reason Stop Dose Admin Diazepam 5 mg 11/10/16 16:09 11/10/16 16:44 Valium Syringe IVP 11/10/16 16:10 5 mg ONCE STA Administration Levetiracetam 1,000 mg/ Sodium 110 mls @ 100 mls/hr 11/10/16 16:09 11/10/16 16:55 Chloride IV 11/10/16 17:14 100 mls/hr ONCE STA Administration Vital Signs: Temp Pulse Resp BP Pulse Ox 11/10/16 15:50 98.0 F 73 18 144/89 H 96 Departure - Departure Time of Disposition: 18:21 Disposition: HOME SELF-CARE Discharge Problem: Seizure disorder Instructions: Epilepsy (ED) Condition: Good Pt referred to PMD for follow-up: No Additional Instructions: go ahead and start on your seizure meds your picked up today--f/u with your doctor--return prn Allergies/Adverse Reactions: Allergies tramadol Allergy (Severe, Verified 11/10/16 15:58) itching all over dextromethorphan HBr [From NyQuil] Adverse Reaction (Verified 11/10/16 15:58) doxylamine [From NyQuil] Adverse Reaction (Verified 11/10/16 15:58) prochlorperazine edisylate [From Compazine] Adverse Reaction (Verified 11/10/16 15:58) prochlorperazine maleate [From Compazine] Adverse Reaction (Verified 11/10/16 15 :58) Itching pseudoephedrine HCl [From NyQuil] Adverse Reaction (Verified 11/10/16 15:58) Itching Home Medications: Ambulatory Orders Albuterol Sulfate [Proair Hfa] 2 puff IH Q4H PRN 11/26/15 Simvastatin 20 mg PO DAILY 02/19/16 Fluticasone Propionate 110 Mcg [Flovent Hfa 110 Mcg] 2 puff IH BID 02/29/16 Hydrocodone Bit/Acetaminophen [[place] 7.5-325] 7.5 tab PO TID 05/27/16 Diphenhydramine HCl [Benadryl] 25 mg PO ONCE PRN 06/19/16 Levetiracetam [Keppra] 1,500 mg PO BID 08/08/16 Disposition Discussed With: Patient, Family
[2016-11-10 22:09] VITALS: BP 111/57; TEMP 97.4
== END 2016-11-10 22:15 | disposition home or self-care (01) ==
LOC: ED 15:42
DX: G40.909 Epilepsy, unspecified, not intractable, without status epilepticus (principal); Z91.14 Patient's other noncompliance with medication regimen; F17.210 Nicotine dependence, cigarettes, uncomplicated; Z79.899 Other long term (current) drug therapy
CPT/HCPCS: 36415; 80053; 83735; 85025; 96365; 96375; 99283

== ENCOUNTER 2016-11-11 20:36 | Emergency (ER) | payer OTHER ==
[2016-11-11] MEDS ORDERED: SODIUM CHLORIDE 1,000 ML IV STA (20:44)
[2016-11-11 20:45] VITALS: BP 117/65; TEMP 98.8; BMI 25.8
[2016-11-11 20:55] LABS: BASOPHILS # (AUTO) 0.1 K/uL (0-0.2); BASOPHILS % (AUTO) 0.7 % (0.0-3.0); EOSINOPHILS # (AUTO) 0.3 K/ul (0.0-0.7); EOSINOPHILS % (AUTO) 3.3 % (0.0-7.0); HEMATOCRIT 40.9 % (42.0-52.0); IMMATURE GRANULOCYTE % (AUTO) 0.7 % (0.0-5.0); LYMPHOCYTES # (AUTO) 2.8 K/uL (0.60-3.4); LYMPHOCYTES % (AUTO) 28.4 (10.0-50.0); MEAN CORPUSCULAR HEMOGLOBIN 29.4 pg (27.0-31.0); MEAN CORPUSCULAR HGB CONC 34.2 (31.8-35.4); MEAN CORPUSCULAR VOLUME 85.7 fl (80.0-94.0); MONOCYTES # (AUTO) 0.9 K/uL (0.4-2.0); MONOCYTES % (AUTO) 9.6 (0-10); NEUTROPHILS # (AUTO) 5.6 K/ul (2.0-6.9); NEUTROPHILS % (AUTO) 57.3; PLATELET COUNT 261 10^3/uL (140-440); RED BLOOD COUNT 4.77 10^6/ul (4.70-6.10)
--- NOTE | 2016-11-11 21:03 | ED.PDOC ---
General ED Provider: Dr. TY STALLINGS-ER Chief Complaint: Arrhythmia Stated Complaint: my heart was racing--family says not drinking much right now Time Seen by Physician: 20:40 Mode of Arrival: Ambulance Information Source: Patient Exam Limitations: No limitations Primary Care Provider: JUSTIN GREENFIELD Nursing and Triage Documentation Reviewed and Agree: Yes Cardiovascular Complaint Exam - Palpitations Complaint/Exam Onset/Duration: a few hours Symptoms Are: Still present Timing: Constant Initial Severity: Mild Current Severity: Mild Character: Reports: Fast, Pounding Aggravating: Reports: Caffeine Alleviating: Reports: None Associated Signs and Symptoms: Denies: Lightheadedness, Dizziness, Syncope, Chest pain, Shortness of breath, Diaphoresis, Nausea, Vomiting Thyroid Exam: Normal Differential Diagnoses: Hypokalemia Quality Indicator For Non-Traumatic Chest Pain/Syncope: EKG Performed Review of Systems - Review Of Systems Constitutional: Reports: No symptoms Eyes: Reports: No symptoms Ears, Nose, Mouth, Throat: Reports: No symptoms Respiratory: Reports: No symptoms Cardiac: Reports: Palpitations GI: Reports: No symptoms : Reports: No symptoms Musculoskeletal: Reports: No symptoms Skin: Reports: No symptoms Neurological: Reports: No symptoms Endocrine: Reports: No symptoms Hematologic/Lymphatic: Reports: No symptoms All Other Systems: Reviewed and Negative Past Medical History - Past Medical History Previously Healthy: Yes Endocrine: Reports: None, Dyslipidemia Cardiovascular: Reports: None Respiratory: Reports: Asthma Hematological: Reports: None Gastrointestinal: Reports: None Genitourinary: Reports: None Neuro/Psych: Reports: Migraine, Seizure, Anxiety, Depression Musculoskeletal: Reports: None Cancer: Reports: None 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 - Surgical History General Surgical History: Reports: Tonsillectomy, Adenoidectomy, Orthopedic ( WRIST SURGERY), Other (EYE, EAR), Unknown - Family History Family History: Reports: Unknown - Social History Smoking Status: Current every day smoker, Heavy tobacco smoker Hx Substance Use: No Alcohol Screening: None Lives: With family - Immunizations Tetanus Shot up to Date: Yes Physical Exam - Physical Exam Appearance: Well-appearing, No pain distress, Well-nourished Eyes: CIARA, EOMI, Conjunctiva clear ENT: Ears normal, Nose normal, Oropharynx normal Neck: Supple Respiratory: Airway patent, Breath sounds clear, Breath sounds equal, Respirations nonlabored Cardiovascular: Tachycardia GI/: Soft, Nontender, No masses, Bowel sounds normal, No Organomegaly Musculoskeletal: Normal strength, ROM intact, No edema, No calf tenderness Skin: Warm Neurological: Sensation intact, Motor intact, Reflexes intact, Cranial nerves intact, Alert, Oriented Psychiatric: Affect appropriate, Mood appropriate Interpretation - EKG Interpretation Time of EKG #1: 21:03 Rate: Normal Rhythm: Sinus Ectopy: None [place]: NL ST Segment: Normal Interpretation: nsr Re-Evaluation - Re-Evaluation Time of Re-Evaluation: 22:16 Status: Improved Vital Signs Stable: Yes (hr down) Pain Level: 0 Appearance: NAD Lungs: Clear Skin: Warm and Dry Neuro: Alert and Oriented X3 CV: RRR Critical Care Note - Critical Care Note Total Time (mins): 0 Course - Course Hematology/Chemistry: 11/11/16 20:50 11/11/16 20:50 Orders, Labs, Meds: Lab Review 11/11/16 11/11/16 20:50 21:30 WBC 9.70 RBC 4.77 Hgb 14.0 Hct 40.9 L MCV 85.7 MCH 29.4 MCHC 34.2 RDW Coeff of [place] 13.0 Plt Count 261 Immature Gran % (Auto) 0.7 Neut % (Auto) 57.3 Lymph % (Auto) 28.4 [place] % (Auto) 9.6 Eos % (Auto) 3.3 Baso % (Auto) 0.7 Immature Gran # (Auto) 0.1 Neut # 5.6 Lymph # 2.8 [place] # 0.9 Eos # 0.3 Baso # 0.1 D-Dimer (Manual) 224.60 Sodium 140 Potassium 3.5 Chloride 106 Carbon Dioxide 24 Anion Gap 13.5 BUN 15 Creatinine 1.23 H Estimated GFR (MDRD) 66.00 BUN/Creatinine Ratio 12.19 Glucose 110 H Calcium 8.7 Total Bilirubin 0.21 AST 15 ALT 31 Alkaline Phosphatase 69 Total Creatine Kinase 74 Troponin I < 0.0100 Total Protein 6.3 L Albumin 3.5 Globulin 2.8 Albumin/Globulin Ratio 1.25 TSH 0.983 Free T4 0.88 Urine Color Yellow Urine Clarity Clear Urine pH 6.0 Ur Specific [place] 1.025 Urine Protein Negative Urine Glucose (UA) Negative Urine Ketones Trace Urine Blood Negative Urine Nitrite Negative Urine Bilirubin Negative Urine Urobilinogen 0.2 Ur Leukocyte Esterase Negative Urine Opiates Screen Positive Ur Oxycodone Screen Negative Urine Methadone Screen Negative Ur Propoxyphene Screen Negative Ur Barbiturates Screen Negative U Tricyclic Antidepress Negative Ur Phencyclidine Scrn Negative Ur Amphetamine Screen Negative U Methamphetamines Scrn Negative U Benzodiazepines Scrn Positive Urine Cocaine Screen Negative U Cannabinoids Screen Negative Orders Category Date Time Status EKG-(ED ONLY) Stat CARDIO 11/11/16 20:44 Completed [place] [ED [employer] AP[employer]] .ONCE EMERGENCY 11/11/16 20:45 Active CBC W/ AUTO DIFF Stat LAB 11/11/16 20:50 Completed COMPREHENSIVE METABOLIC PANEL Stat LAB 11/11/16 20:50 Completed CREATINE KINASE Stat LAB 11/11/16 20:50 Completed D-DIMER Stat LAB 11/11/16 20:50 Completed FREE T4 (FREE THYROXINE) Stat LAB 11/11/16 20:50 Completed THYROID STIMULATING HORMONE Stat LAB 11/11/16 20:50 Completed TROPONIN I Stat LAB 11/11/16 20:50 Completed URINALYSIS C & S IF INDICATED Stat LAB 11/11/16 21:30 Completed URINE DRUG SCREEN (RAPID FOR ED) [DRUG SCREEN, URINE, LAB 11/11/16 21:30 Completed RAPID] Stat Sodium Chloride 0.9% [Sodium Chloride] 1,000 ml MEDS 11/11/16 20:44 Discontinued IV BOLUS Medications Discontinued Medications Generic Name Dose Route Start Last Admin Trade Name Freq PRN Reason Stop Dose Admin Sodium Chloride 1,000 mls @ 1,000 mls/hr 11/11/16 20:44 11/11/16 20:47 Sodium Chloride IV 11/11/16 21:43 1,000 mls/hr BOLUS STA Administration Vital Signs: Temp Pulse Resp BP Pulse Ox 11/11/16 20:36 98.8 F 84 20 117/65 97 ANDREA Risk Score ANDREA Risk Score: Risk Score Odds of by 30D 0 0.1 (0.1-0.2) 1 0.3 (0.2-0.3) 2 0.4 (0.3-0.5) 3 0.7 (0.6-0.9) 4 1.2 (1.0-1.5) 5 2.2 (1.9-2.6) 6 3.0 (2.5-3.6) 7 4.8 (3.8-6.1) Departure - Departure Time of Disposition: 22:17 Disposition: HOME SELF-CARE Discharge Problem: Tachycardia Instructions: Tachycardia (ED) Condition: Good Pt referred to PMD for follow-up: Yes Additional Instructions: increase fluids---avoid caffeine--f/u with clinc next week--consider outpatient holter monitor Allergies/Adverse Reactions: Allergies tramadol Allergy (Severe, Verified 11/11/16 20:58) itching all over dextromethorphan HBr [From NyQuil] Adverse Reaction (Verified 11/11/16 20:58) doxylamine [From NyQuil] Adverse Reaction (Verified 11/11/16 20:58) prochlorperazine edisylate [From Compazine] Adverse Reaction (Verified 11/11/16 20:58) prochlorperazine maleate [From Compazine] Adverse Reaction (Verified 11/11/16 20 :58) Itching pseudoephedrine HCl [From NyQuil] Adverse Reaction (Verified 11/11/16 20:58) Itching Home Medications: Ambulatory Orders Albuterol Sulfate [Proair Hfa] 2 puff IH Q4H PRN 11/26/15 Simvastatin 20 mg PO DAILY 02/19/16 Fluticasone Propionate 110 Mcg [Flovent Hfa 110 Mcg] 2 puff IH BID 02/29/16 Hydrocodone Bit/Acetaminophen [[place] 7.5-325] 7.5 tab PO TID 05/27/16 Diphenhydramine HCl [Benadryl] 25 mg PO ONCE PRN 06/19/16 Levetiracetam [Keppra] 1,500 mg PO BID 08/08/16 Disposition Discussed With: Patient, Family
[2016-11-11 21:40] LABS: ALANINE AMINOTRANSFERASE 31 U/L (12-78); ALBUMIN 3.5 g/dL (3.4-5.0); ALBUMIN/GLOBULIN RATIO 1.25; ALKALINE PHOSPHATASE 69 U/L (50-136); ANION GAP 13.5; ASPARTATE AMINO TRANSFERASE 15 U/L (15-37); BILIRUBIN,TOTAL 0.21 mg/dL (0.00-1.20); BLOOD UREA NITROGEN 15 mg/dL (7-18); BUN/CREATININE RATIO 12.19; CALCIUM 8.7 mg/dL (8.2-10.2); CARBON DIOXIDE 24 mmol/L (21-32); CHLORIDE 106 mmol/L (98-107); CREATINE KINASE 74 U/L; CREATININE 1.23 mg/dL (0.60-1.10); GLUCOSE 110 mg/dL (70-100); POTASSIUM 3.5 mmol/L (3.5-5.1); SODIUM 140 mmol/L (136-145); TOTAL PROTEIN 6.3 g/dL (6.4-8.2)
[2016-11-11 21:57] LABS: ADD URINE MICROSCOPIC NO; BILIRUBIN,URINE Negative (NEGATIVE); KETONES,URINE Trace (NEGATIVE); LEUKOCYTE ESTERASE ,URINE Negative (NEGATIVE); NITRITE,URINE Negative (NEGATIVE); PROTEIN,URINE Negative (NEGATIVE); URINE, BLOOD Negative (NEGATIVE)
[2016-11-11 22:07] LABS: COCAIN SCREEN,URINE NEGATIVE (NEGATIVE)
== END 2016-11-11 22:21 | disposition home or self-care (01) ==
LOC: ED 20:36
DX: R00.0 Tachycardia, unspecified (principal); E78.5 Hyperlipidemia, unspecified; F17.210 Nicotine dependence, cigarettes, uncomplicated; Z79.899 Other long term (current) drug therapy
CPT/HCPCS: 36415; 80053; 80306; 81001; 82550; 84439; 84443; 84484; 85025; 85379; 93005; 93010; 96360; 99283

== ENCOUNTER 2016-11-30 00:08 | Emergency (ER) ==
[2016-11-30 00:38] VITALS: BP 123/77; TEMP 98.9; BMI 25.1
[2016-11-30] MEDS ORDERED: IMITREX SUBCUT STA (00:39)
[2016-11-30] MEDS ORDERED: TORADOL IM STA (00:39)
[2016-11-30] MEDS ORDERED: ZOFRAN ODT PO STA (00:43)
--- NOTE | 2016-11-30 00:47 | ED.PDOC ---
General ED Provider: Dr. MISAEL KESSLER Chief Complaint: Headache Stated Complaint: pt c/o of headache that started this evening and is bilateral with photophobia and nausea. Time Seen by Physician: 00:35 Mode of Arrival: Walk-In Information Source: Patient Primary Care Provider: JUSTIN GREENFIELD Nursing and Triage Documentation Reviewed and Agree: Yes Neurological Complaint Exam - Headache Complaint/Exam Onset: Gradual Duration: 6 hours Timing: Constant Worst Headache Ever: No Initial Severity: Moderate Current Severity: Severe Location: Diffuse Character: Reports: Throbbing Aggravating: Reports: Bright lights Associated Signs and Symptoms: Reports: Nausea. Denies: Dizziness, Seizure, Vomiting, Sinus pressure, Fever, Neck pain, Neck stiffness, Decreased LOC, Visual changes Related History: Reports: Similar episode Related Surgical History: Reports: None SAH Risk Factors: Reports: None Meningitis Risk Factors: Reports: None SDH Risk Factors: Reports: None Temporal Arteritis Risk Factors: Reports: None Normal Head CT Within Last 12 Months: Yes Fundoscopic Exam: Present: Normal Findings Papilledema Present: No Temporal Artery Tenderness: Present: None Sinus Tenderness: Present: None ROM Limited In: No Limitiations Focal Weakness: Present: None Focal Sensory Loss: Present: None Gait: Normal Nystagmus Present: No Gag Reflex Present: Yes [id number]: Normal Findings Romberg Test Positive: Yes Babinski Sign: Negative Right, Negative Left Heel to Toe Normal: Yes Differential Diagnoses: Tension Headache Review of Systems - Review Of Systems Constitutional: Reports: No symptoms Eyes: Reports: No symptoms Ears, Nose, Mouth, Throat: Reports: No symptoms Respiratory: Reports: No symptoms Cardiac: Reports: No symptoms GI: Reports: Nausea, Poor appetite : Reports: No symptoms Musculoskeletal: Reports: No symptoms Skin: Reports: No symptoms Neurological: Reports: Anxiety, Headache Endocrine: Reports: No symptoms Hematologic/Lymphatic: Reports: No symptoms All Other Systems: Reviewed and Negative Past Medical History - Past Medical History Previously Healthy: Yes Endocrine: Reports: None, Dyslipidemia Cardiovascular: Reports: None Respiratory: Reports: Asthma Hematological: Reports: None Gastrointestinal: Reports: None Genitourinary: Reports: None Neuro/Psych: Reports: Migraine, Seizure, Anxiety, Depression Musculoskeletal: Reports: None Cancer: Reports: None 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 - Surgical History General Surgical History: Reports: Tonsillectomy, Adenoidectomy, Orthopedic ( WRIST SURGERY), Other (EYE, EAR), Unknown - Family History Family History: Reports: Unknown - Social History Smoking Status: Current every day smoker, Heavy tobacco smoker Hx Substance Use: No Alcohol Screening: None - Immunizations Tetanus Shot up to Date: Yes Physical Exam - Physical Exam Appearance: Ill-appearing Ill-appearing: Moderate Pain Distress: None Eyes: CIARA Neck: Supple Respiratory: Airway patent, Breath sounds clear, Breath sounds equal, Respirations nonlabored Cardiovascular: RRR, Pulses normal, No rub, No murmur GI/: Soft, Nontender Neurological: Sensation intact, Motor intact, Reflexes intact, Cranial nerves intact, Alert, Oriented Psychiatric: Anxious Critical Care Note - Critical Care Note Total Time (mins): 0 Course - Course Orders, Labs, Meds: Orders Category Date Time Status Ketorolac Tromethamine [Toradol] MEDS 11/30/16 00:39 Stat 60 mg IM ONCE STA Ondansetron [Zofran Odt] MEDS 11/30/16 00:43 Stat 4 mg PO ONCE STA Sumatriptan Succinate [Imitrex] MEDS 11/30/16 00:39 Stat 6 mg SUBCUT ONCE STA Medications Discontinued Medications Generic Name Dose Route Start Last Admin Trade Name Freq PRN Reason Stop Dose Admin Ketorolac Tromethamine 60 mg 11/30/16 00:39 Toradol IM 11/30/16 00:40 ONCE STA Ondansetron HCl 4 mg 11/30/16 00:43 Zofran Odt PO 11/30/16 00:44 ONCE STA Sumatriptan Succinate 6 mg 11/30/16 00:39 Imitrex SUBCUT 11/30/16 00:40 ONCE STA Vital Signs: Temp Pulse Resp BP Pulse Ox 11/30/16 00:10 98.9 F 89 20 123/77 98 Departure - Departure Time of Disposition: 01:30 Disposition: HOME SELF-CARE Discharge Problem: Migraine headache Qualifiers: Migraine type: without aura Status migrainosus presence: without status migrainosus Intractability: not intractable Qualifier Code: (G43.009) Migraine without aura, not intractable, without status migrainosus Instructions: Migraine Headache (ED) Condition: Stable Pt referred to PMD for follow-up: Yes Additional Instructions: Push fluids rest take medications as needed for pain. Follow up with PC in 3 days Prescriptions: Butalb/Acetaminophen/Caffeine [Fioricet] 1 each PO TID PRN #15 tablet PRN Reason: Headache Ondansetron HCl [Zofran Tab] 4 mg PO Q8H PRN #14 tablet PRN Reason: Nausea / Vomiting Allergies/Adverse Reactions: Allergies tramadol Allergy (Severe, Verified 11/30/16 00:19) itching all over dextromethorphan HBr [From NyQuil] Adverse Reaction (Verified 11/30/16 00:19) doxylamine [From NyQuil] Adverse Reaction (Verified 11/30/16 00:19) prochlorperazine edisylate [From Compazine] Adverse Reaction (Verified 11/30/16 00:19) prochlorperazine maleate [From Compazine] Adverse Reaction (Verified 11/30/16 00 :19) Itching pseudoephedrine HCl [From NyQuil] Adverse Reaction (Verified 11/30/16 00:19) Itching Home Medications: Ambulatory Orders Albuterol Sulfate [Proair Hfa] 2 puff IH Q4H PRN 11/26/15 Simvastatin 20 mg PO DAILY 02/19/16 Fluticasone Propionate 110 Mcg [Flovent Hfa 110 Mcg] 2 puff IH BID 02/29/16 Hydrocodone Bit/Acetaminophen [[place] 7.5-325] 7.5 tab PO TID 05/27/16 Diphenhydramine HCl [Benadryl] 25 mg PO ONCE PRN 06/19/16 Levetiracetam [Keppra] 1,500 mg PO BID 08/08/16 Butalb/Acetaminophen/Caffeine [Fioricet] 1 each PO TID PRN #15 tablet 11/30/16 Ondansetron HCl [Zofran Tab] 4 mg PO Q8H PRN #14 tablet 11/30/16
== END 2016-11-30 01:55 | disposition home or self-care (01) ==
LOC: ED 00:08
DX: G43.009 Migraine without aura, not intractable, without status migrainosus (principal); F17.210 Nicotine dependence, cigarettes, uncomplicated
CPT/HCPCS: 96372; 99283

== ENCOUNTER 2016-12-14 19:56 | Emergency (ER) | payer OTHER ==
[2016-12-14 20:00] VITALS: BP 141/87; TEMP 99.1; BMI 25.4
[2016-12-14] MEDS ORDERED: DILAUDID 2 MG/ML SYRINGE IM STA (20:07)
[2016-12-14] MEDS ORDERED: ZOFRAN 4 MG/2 ML IM STA (20:07)
--- NOTE | 2016-12-14 20:11 | ED.PDOC ---
General ED Provider: Dr. TY STALLINGS-ER Chief Complaint: Headache Stated Complaint: jesus manuel had a mgraine since this am Time Seen by Physician: 19:55 Mode of Arrival: Walk-In Information Source: Patient Exam Limitations: No limitations Primary Care Provider: JUSTIN GREENFIELD Nursing and Triage Documentation Reviewed and Agree: Yes Neurological Complaint Exam - Headache Complaint/Exam Onset: Gradual Duration: 12hrs Symptoms Are: Still present Timing: Constant Episodes Lasting: Hours Worst Headache Ever: No Initial Severity: Mild Current Severity: Moderate Location: Diffuse Character: Reports: Dull, Throbbing, Radiating, Pressure, Typical headache, Migraine Aggravating: Reports: Bright lights Associated Signs and Symptoms: Reports: Nausea, Vomiting. Denies: Dizziness, Seizure, Sinus pressure, Fever, Neck pain, Neck stiffness, Decreased LOC, Visual changes Related History: Reports: Similar episode (long hx of migraine canseco) SDH Risk Factors: Reports: Male Temporal Arteritis Risk Factors: Reports: Normal Head CT Within Last 12 Months: Yes Fundoscopic Exam: Present: Normal Findings Papilledema Present: No Temporal Artery Tenderness: Present: None Sinus Tenderness: Present: None TMJ Tenderness: Present: None Glascow Coma Scale (see protocol): 15 Meningeal Signs Positive: No Pain on Passive Flexion-Positive Kernig's: No ROM Limited In: No Limitiations Focal Weakness: Present: None Focal Sensory Loss: Present: None Gait: Normal Nystagmus Present: No Gag Reflex Present: Yes [id number]: Normal Findings Romberg Test Positive: No Babinski Sign: Negative Right, Negative Left Heel to Toe Normal: Yes Differential Diagnoses: Migraine Review of Systems - Review Of Systems Constitutional: Reports: No symptoms Eyes: Reports: No symptoms Ears, Nose, Mouth, Throat: Reports: No symptoms Respiratory: Reports: No symptoms Cardiac: Reports: No symptoms GI: Reports: Nausea : Reports: No symptoms Musculoskeletal: Reports: No symptoms Skin: Reports: No symptoms Neurological: Reports: Headache Endocrine: Reports: No symptoms Hematologic/Lymphatic: Reports: No symptoms All Other Systems: Reviewed and Negative Past Medical History - Past Medical History Previously Healthy: Yes Endocrine: Reports: None, Dyslipidemia Cardiovascular: Reports: None Respiratory: Reports: Asthma Hematological: Reports: None Gastrointestinal: Reports: None Genitourinary: Reports: None Neuro/Psych: Reports: Migraine, Seizure, Anxiety, Depression Musculoskeletal: Reports: None Cancer: Reports: None 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 - Surgical History General Surgical History: Reports: Tonsillectomy, Adenoidectomy, Orthopedic ( WRIST SURGERY), Other (EYE, EAR), Unknown - Family History Family History: Reports: Unknown - Social History Smoking Status: Current every day smoker, Heavy tobacco smoker Hx Substance Use: No Alcohol Screening: None Physical Exam - Physical Exam Appearance: Well-appearing, No pain distress, Well-nourished Pain Distress: Moderate Eyes: CIARA ENT: Ears normal, Nose normal, Oropharynx normal Neck: Supple Respiratory: Airway patent, Breath sounds clear, Breath sounds equal, Respirations nonlabored Cardiovascular: RRR, Pulses normal, No rub, No murmur GI/: Soft, Nontender, No masses, Bowel sounds normal, No Organomegaly Musculoskeletal: Normal strength Skin: Warm, Dry, Normal color Neurological: Sensation intact, Motor intact, Reflexes intact, Cranial nerves intact, Alert, Oriented Psychiatric: Affect appropriate Re-Evaluation - Re-Evaluation Time of Re-Evaluation: 20:30 Status: Improved Vital Signs Stable: Yes Pain Level: 1 Appearance: NAD Lungs: Clear Skin: Warm and Dry Neuro: Alert and Oriented X3 CV: RRR Critical Care Note - Critical Care Note Total Time (mins): 0 Course - Course Orders, Labs, Meds: Orders Category Date Time Status Hydromorphone HCl/Pf [Dilaudid 2 mg/ml Syringe] MEDS 12/14/16 20:07 Stat 2 mg IM ONCE STA Ondansetron HCl/Pf [Zofran 4 mg/2 ml] MEDS 12/14/16 20:07 Stat 4 mg IM ONCE STA Medications Discontinued Medications Generic Name Dose Route Start Last Admin Trade Name Freq PRN Reason Stop Dose Admin Hydromorphone HCl 2 mg 12/14/16 20:07 Dilaudid 2 Mg/Ml Syringe IM 12/14/16 20:08 ONCE STA Ondansetron HCl 4 mg 12/14/16 20:07 Zofran 4 Mg/2 Ml IM 12/14/16 20:08 ONCE STA Vital Signs: Temp Pulse Resp BP Pulse Ox 12/14/16 19:57 99.1 F 92 H 16 141/87 H 97 Departure - Departure Time of Disposition: 20:11 Disposition: HOME SELF-CARE Discharge Problem: Migraine headache Qualifiers: Migraine type: unspecified Status migrainosus presence: without status migrainosus Intractability: not intractable Qualifier Code: (G43.909) Migraine, unspecified, not intractable, without status migrainosus Instructions: Migraine Headache (ED) Condition: Good Pt referred to PMD for follow-up: Yes Additional Instructions: f/u with pcp Allergies/Adverse Reactions: Allergies tramadol Allergy (Severe, Verified 12/14/16 20:00) itching all over dextromethorphan HBr [From NyQuil] Adverse Reaction (Verified 12/14/16 20:00) doxylamine [From NyQuil] Adverse Reaction (Verified 12/14/16 20:00) prochlorperazine edisylate [From Compazine] Adverse Reaction (Verified 12/14/16 20:00) prochlorperazine maleate [From Compazine] Adverse Reaction (Verified 12/14/16 20 :00) Itching pseudoephedrine HCl [From NyQuil] Adverse Reaction (Verified 12/14/16 20:00) Itching Home Medications: Ambulatory Orders Albuterol Sulfate [Proair Hfa] 2 puff IH Q4H PRN 11/26/15 Simvastatin 20 mg PO DAILY 02/19/16 Fluticasone Propionate 110 Mcg [Flovent Hfa 110 Mcg] 2 puff IH BID 02/29/16 Hydrocodone Bit/Acetaminophen [[place] 7.5-325] 7.5 tab PO TID 05/27/16 Diphenhydramine HCl [Benadryl] 25 mg PO ONCE PRN 06/19/16 Levetiracetam [Keppra] 1,500 mg PO BID 08/08/16 Ondansetron HCl [Zofran Tab] 4 mg PO Q8H PRN #14 tablet 11/30/16 Disposition Discussed With: Patient, Family
== END 2016-12-14 20:37 | disposition home or self-care (01) ==
LOC: ED 19:56
DX: G43.909 Migraine, unspecified, not intractable, without status migrainosus (principal); F17.210 Nicotine dependence, cigarettes, uncomplicated
CPT/HCPCS: 96372; 99283

== ENCOUNTER 2017-01-01 02:20 | Emergency (ER) ==
[2017-01-01 02:20] VITALS: BMI 25.4
[2017-01-01] MEDS ORDERED: ZOFRAN 4 MG/2 ML IM STA (02:23)
[2017-01-01] MEDS ORDERED: DILAUDID 1 MG/ML SYRINGE IM STA (02:23)
[2017-01-01 02:26] VITALS: BP 119/81; TEMP 98.1
--- NOTE | 2017-01-01 03:24 | ED.PDOC ---
General ED Provider: Dr. TY STALLINGS-ER Chief Complaint: Headache Stated Complaint: jesus manuel got a migraine canseco--its like the ones i usually have Time Seen by Physician: 02:30 Mode of Arrival: Walk-In Information Source: Patient, Family Exam Limitations: No limitations Primary Care Provider: JUSTIN GREENFIELD Nursing and Triage Documentation Reviewed and Agree: Yes Neurological Complaint Exam - Headache Complaint/Exam Onset: Gradual Duration: several hours Symptoms Are: Still present Timing: Constant Episodes Lasting: Hours Worst Headache Ever: No Initial Severity: Mild Current Severity: Moderate Location: Diffuse Character: Reports: Dull, Throbbing, Pressure, Typical headache, Migraine Aggravating: Reports: Bright lights Alleviating: Reports: None Associated Signs and Symptoms: Reports: Nausea, Vomiting. Denies: Dizziness, Seizure, Sinus pressure, Fever, Neck pain, Neck stiffness, Decreased LOC, Visual changes Related History: Reports: Similar episode. Denies: Recent trauma, Remote trauma Related Surgical History: Reports: None SAH Risk Factors: Reports: None Meningitis Risk Factors: Reports: None SDH Risk Factors: Reports: Male Temporal Arteritis Risk Factors: Reports: Normal Head CT Within Last 12 Months: Yes Fundoscopic Exam: Present: Normal Findings Papilledema Present: No Temporal Artery Tenderness: Present: None Sinus Tenderness: Present: None TMJ Tenderness: Present: None Glascow Coma Scale (see protocol): 15 Meningeal Signs Positive: No Pain on Passive Flexion-Positive Kernig's: No ROM Limited In: No Limitiations Focal Weakness: Present: None Focal Sensory Loss: Present: None Gait: Normal Nystagmus Present: No Gag Reflex Present: Yes [id number]: Normal Findings Romberg Test Positive: No Babinski Sign: Negative Right, Negative Left Heel to Toe Normal: Yes Differential Diagnoses: Migraine Review of Systems - Review Of Systems Constitutional: Reports: No symptoms Eyes: Reports: No symptoms Ears, Nose, Mouth, Throat: Reports: No symptoms Respiratory: Reports: No symptoms Cardiac: Reports: No symptoms GI: Reports: Nausea : Reports: No symptoms Musculoskeletal: Reports: No symptoms Skin: Reports: No symptoms Neurological: Reports: Headache Endocrine: Reports: No symptoms Hematologic/Lymphatic: Reports: No symptoms All Other Systems: Reviewed and Negative Past Medical History - Past Medical History Previously Healthy: Yes Endocrine: Reports: None, Dyslipidemia Cardiovascular: Reports: None Respiratory: Reports: Asthma Hematological: Reports: None Gastrointestinal: Reports: None Genitourinary: Reports: None Neuro/Psych: Reports: Migraine, Seizure, Anxiety, Depression Musculoskeletal: Reports: None Cancer: Reports: None 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 - Surgical History General Surgical History: Reports: Tonsillectomy, Adenoidectomy, Orthopedic ( WRIST SURGERY), Other (EYE, EAR), Unknown - Family History Family History: Reports: Unknown - Social History Smoking Status: Current every day smoker, Heavy tobacco smoker Hx Substance Use: No Alcohol Screening: None Lives: With family - Immunizations Tetanus Shot up to Date: Yes Physical Exam - Physical Exam Appearance: Well-appearing, No pain distress, Well-nourished Pain Distress: Moderate Eyes: CIARA, EOMI, Conjunctiva clear ENT: Ears normal, Nose normal, Oropharynx normal Neck: Supple Respiratory: Airway patent, Breath sounds clear, Breath sounds equal, Respirations nonlabored Cardiovascular: RRR, Pulses normal, No rub, No murmur GI/: Soft, Nontender, No masses, Bowel sounds normal, No Organomegaly Musculoskeletal: Normal strength, ROM intact, No edema, No calf tenderness Skin: Warm, Dry, Normal color Neurological: Sensation intact, Motor intact, Reflexes intact, Cranial nerves intact, Alert, Oriented Psychiatric: Affect appropriate Re-Evaluation - Re-Evaluation Time of Re-Evaluation: 03:24 Status: Improved Vital Signs Stable: Yes Pain Level: 0 Appearance: NAD Lungs: Clear Skin: Warm and Dry Neuro: Alert and Oriented X3 CV: RRR Critical Care Note - Critical Care Note Total Time (mins): 0 Course - Course Orders, Labs, Meds: Orders Category Date Time Status Hydromorphone HCl [Dilaudid 1 mg/ml Syringe] MEDS 01/01/17 02:23 Discontinued 1 mg IM ONCE STA Ondansetron HCl/Pf [Zofran 4 mg/2 ml] MEDS 01/01/17 02:23 Discontinued 4 mg IM ONCE STA Medications Discontinued Medications Generic Name Dose Route Start Last Admin Trade Name Freq PRN Reason Stop Dose Admin Hydromorphone HCl 1 mg 01/01/17 02:23 01/01/17 02:39 Dilaudid 1 Mg/Ml Syringe IM 01/01/17 02:24 1 mg ONCE STA Administration Ondansetron HCl 4 mg 01/01/17 02:23 01/01/17 02:38 Zofran 4 Mg/2 Ml IM 01/01/17 02:24 4 mg ONCE STA Administration Vital Signs: Temp Pulse Resp BP Pulse Ox 01/01/17 02:21 98.1 F 86 20 119/81 96 Departure - Departure Time of Disposition: 03:24 Disposition: HOME SELF-CARE Discharge Problem: Headache Migraine headache Qualifiers: Migraine type: without aura Status migrainosus presence: without status migrainosus Intractability: not intractable Qualifier Code: (G43.009) Migraine without aura, not intractable, without status migrainosus Instructions: Migraine Headache (ED) Condition: Good Pt referred to PMD for follow-up: Yes Additional Instructions: f/u with pcp Allergies/Adverse Reactions: Allergies tramadol Allergy (Severe, Verified 01/01/17 02:27) itching all over dextromethorphan HBr [From NyQuil] Adverse Reaction (Verified 01/01/17 02:27) doxylamine [From NyQuil] Adverse Reaction (Verified 01/01/17 02:27) prochlorperazine edisylate [From Compazine] Adverse Reaction (Verified 01/01/17 02:27) prochlorperazine maleate [From Compazine] Adverse Reaction (Verified 01/01/17 02 :27) Itching pseudoephedrine HCl [From NyQuil] Adverse Reaction (Verified 01/01/17 02:27) Itching Home Medications: Ambulatory Orders Albuterol Sulfate [Proair Hfa] 2 puff IH Q4H PRN 11/26/15 Simvastatin 20 mg PO DAILY 02/19/16 Fluticasone Propionate 110 Mcg [Flovent Hfa 110 Mcg] 2 puff IH BID 02/29/16 Hydrocodone Bit/Acetaminophen [[place] 7.5-325] 7.5 tab PO TID 05/27/16 Diphenhydramine HCl [Benadryl] 25 mg PO ONCE PRN 06/19/16 Levetiracetam [Keppra] 1,500 mg PO BID 08/08/16 Acetaminophen/Diphenhydramine [Tylenol Pm Ex-Strength Caplet] 1 each PO BEDTIME PRN 01/01/17 Disposition Discussed With: Patient, Family
== END 2017-01-01 03:29 | disposition home or self-care (01) ==
LOC: ED 02:20
DX: G43.009 Migraine without aura, not intractable, without status migrainosus (principal); F17.210 Nicotine dependence, cigarettes, uncomplicated
CPT/HCPCS: 96372; 99283

== ENCOUNTER 2017-01-10 19:49 | Emergency (ER) ==
[2017-01-10 19:50] VITALS: BMI 25.4
[2017-01-10 19:53] VITALS: BP 120/79; TEMP 99.1
--- NOTE | 2017-01-10 20:17 | ED.PDOC ---
General ED Provider: Dr. MISAEL KESSLER Chief Complaint: Seizure Stated Complaint: Pateint is a 42 year old male who has a history of seizrue disorder and has been on multiple medications in the past including Dilantin, depakote. He was changed to Keppra which he take faithfully at 1500mg twice a day. He get seizure break through twice a month. Today he had 3 episodes. He has been trying to get back to the neurologist but was told his next APt is not until march. Today's seizure was witnessed and was generalized tonic clonic lasting 30 sec to one min and was post ictal. Now has muscle aches and pains. Denies any injury. Time Seen by Physician: 20:10 Mode of Arrival: Walk-In Information Source: Patient Exam Limitations: No limitations [facility] T[facility] Documentation Reviewed and Agree: Yes Neurological Complaint Exam - Seizure Complaint/Exam Onset/Duration: 3 hour ago Symptoms Are: Resolved Episodes Lasting: Minutes Single or Multiple Episode: 2 Failed to Regain Consciousness: No Severity: Self-limited Location: All extremities Character: Generalized, Tonic-clonic Aggravating: Reports: None Alleviating: Reports: Spontaneous resolution Associated Signs and Symptoms: Denies: Anxiety, Emotional distress, Impaired speech, Bladder incontinence, Bowel incontinence, Trauma, Illness, Vomiting, Lethargy, Apnea Related History: Reports: Similar episode SAH Risk Factors: Reports: None Meningitis Risk Factors: Reports: None SDH Risk Factors: Reports: None Related Surgical History: Reports: None Carotid Bruit Present: No Cephalohematoma Present: No Tongue Bitten: No Neck Pain Present: No Nystagmus Present: No Gag Reflex Present: No Speech: Present: Normal Findings Aphasia: Present: None Meningeal Signs Positive: No Focal Weakness: Present: None Focal Sensory Loss: Reports: None Gait: Normal [id number]: Normal Findings Pronator Drift: Present: None Romberg Test Positive: No Babinski Sign: Negative Right, Negative Left Heel to Toe Normal: Yes Signs of Injury: Present: Normal findings Differential Diagnoses: Seizure, Seizure Disorder Review of Systems - Review Of Systems Constitutional: Reports: No symptoms Eyes: Reports: No symptoms Ears, Nose, Mouth, Throat: Reports: No symptoms Respiratory: Reports: No symptoms Cardiac: Reports: No symptoms GI: Reports: No symptoms : Reports: No symptoms Musculoskeletal: Reports: Joint pain, Muscle pain Skin: Reports: No symptoms Neurological: Reports: Anxiety Endocrine: Reports: No symptoms Hematologic/Lymphatic: Reports: No symptoms All Other Systems: Reviewed and Negative Past Medical History - Past Medical History Previously Healthy: Yes Endocrine: Reports: None, Dyslipidemia Cardiovascular: Reports: None Respiratory: Reports: Asthma Hematological: Reports: None Gastrointestinal: Reports: None Genitourinary: Reports: None Neuro/Psych: Reports: Migraine, Seizure, Anxiety, Depression Musculoskeletal: Reports: None Cancer: Reports: None 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 - Surgical History General Surgical History: Reports: Tonsillectomy, Adenoidectomy, Orthopedic ( WRIST SURGERY), Other (EYE, EAR), Unknown - Family History Family History: Reports: Unknown - Social History Smoking Status: Current every day smoker, Heavy tobacco smoker Hx Substance Use: No Alcohol Screening: None Physical Exam - Physical Exam Appearance: Ill-appearing, Well-nourished Ill-appearing: Mild Pain Distress: Moderate Eyes: CIARA, EOMI, Conjunctiva clear ENT: Ears normal, Nose normal, Oropharynx normal Respiratory: Airway patent, Breath sounds clear, Breath sounds equal, Respirations nonlabored Cardiovascular: RRR, Pulses normal, No rub, No murmur GI/: Soft, Nontender, No masses, Bowel sounds normal, No Organomegaly Musculoskeletal: Normal strength, ROM intact, No edema, No calf tenderness Skin: Warm, Dry, Normal color Neurological: Sensation intact, Motor intact, Reflexes intact, Cranial nerves intact, Alert, Oriented Psychiatric: Anxious Interpretation - 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 Rate: Normal Rhythm: Sinus Ectopy: None - EKG Interpretation Time of EKG #1: 20:32 Rate: Normal Rhythm: Sinus Ectopy: None Clarence: NL ST Segment: Normal Interpretation: Normal Critical Care Note - Critical Care Note Total Time (mins): 20 Course - Course Hematology/Chemistry: 01/10/17 20:40 Orders, Labs, Meds: Lab Review 01/10/17 20:40 WBC 8.49 RBC 5.46 Hgb 15.7 Hct 46.1 MCV 84.4 MCH 28.8 MCHC 34.1 RDW Coeff of Deisi 13.2 Plt Count 240 Immature Gran % (Auto) 0.5 Neut % (Auto) 60.9 Lymph % (Auto) 27.1 [place] % (Auto) 8.2 Eos % (Auto) 2.2 Baso % (Auto) 1.1 Immature Gran # (Auto) 0.0 Neut # 5.2 Lymph # 2.3 [place] # 0.7 Eos # 0.2 Baso # 0.1 Orders Category Date Time Status EKG-(ED ONLY) Stat CARDIO 01/10/17 20:27 Ordered ED IV/MEDIPORT/POWERPORT .ONCE EMERGENCY 01/10/17 20:14 Active CBC W/ AUTO DIFF Stat LAB 01/10/17 20:40 Completed COMPREHENSIVE METABOLIC PANEL Stat LAB 01/10/17 20:40 Received CREATINE KINASE Stat LAB 01/10/17 20:40 Received URINALYSIS C & S IF INDICATED Stat LAB 01/10/17 20:35 Received URINE DRUG SCREEN (RAPID FOR ED) [DRUG SCREEN, URINE, LAB 01/10/17 20:35 Received RAPID] Stat 0.9 % Sodium Chloride [Saline Flush] MEDS 01/10/17 20:15 Ordered 1 syr IVF PRN PRN Fosphenytoin Sodium [Cerebyx] 1,000 mg MEDS 01/10/17 20:15 Active 0.9 % Sodium Chloride [Sodium Chloride] 100 ml IV ONCE Sodium Chloride 0.9% [Sodium Chloride] 1,000 ml MEDS 01/10/17 20:16 Active IV BOLUS Medications Generic Name Dose Route Start Last Admin Trade Name Freq PRN Reason Stop Dose Admin Fosphenytoin Sodium 1,000 mg/ 120 mls @ 100 mls/hr 01/10/17 20:15 Sodium Chloride IV 01/10/17 21:26 ONCE STA Sodium Chloride 1,000 mls @ 1,000 mls/hr 01/10/17 20:16 Sodium Chloride IV 01/10/17 21:15 BOLUS STA Sodium Chloride 1 syr 01/10/17 20:15 Saline Flush IVF PRN PRN To flush IV Vital Signs: Temp Pulse Resp BP Pulse Ox 01/10/17 19:50 99.1 F 78 16 120/79 96 Departure - Departure Time of Disposition: 21:40 Disposition: HOME SELF-CARE Discharge Problem: Seizure Instructions: Epilepsy (ED) Condition: Fair Pt referred to PMD for follow-up: Yes Additional Instructions: Take medications as prescribed Follow up with PCP in 3 days for Dilantin level Follow up with neurology in one-Two months. Push fluids. Prescriptions: Phenytoin Cap [Dilantin] 100 mg PO TID #90 capsule Allergies/Adverse Reactions: Allergies tramadol Allergy (Severe, Verified 01/10/17 19:53) itching all over dextromethorphan HBr [From NyQuil] Adverse Reaction (Verified 01/10/17 19:53) doxylamine [From NyQuil] Adverse Reaction (Verified 01/10/17 19:53) prochlorperazine edisylate [From Compazine] Adverse Reaction (Verified 01/10/17 19:53) prochlorperazine maleate [From Compazine] Adverse Reaction (Verified 01/10/17 19 :53) Itching pseudoephedrine HCl [From NyQuil] Adverse Reaction (Verified 01/10/17 19:53) Itching Home Medications: Ambulatory Orders Albuterol Sulfate [Proair Hfa] 2 puff IH Q4H PRN 11/26/15 Simvastatin 20 mg PO DAILY 02/19/16 Fluticasone Propionate 110 Mcg [Flovent Hfa 110 Mcg] 2 puff IH BID 02/29/16 Hydrocodone Bit/Acetaminophen [[place] 7.5-325] 7.5 tab PO TID 05/27/16 Levetiracetam [Keppra] 1,500 mg PO BID 08/08/16 Phenytoin Cap [Dilantin] 100 mg PO TID #90 capsule 01/10/17 Disposition Discussed With: Patient, Family
[2017-01-10 20:45] LABS: BASOPHILS # (AUTO) 0.1 K/uL (0-0.2); BASOPHILS % (AUTO) 1.1 % (0.0-3.0); EOSINOPHILS # (AUTO) 0.2 K/ul (0.0-0.7); EOSINOPHILS % (AUTO) 2.2 % (0.0-7.0); HEMATOCRIT 46.1 % (42.0-52.0); HEMOGLOBIN 15.7 g/dl (14.0-18.0); IMMATURE GRANULOCYTE % (AUTO) 0.5 % (0.0-5.0); LYMPHOCYTES # (AUTO) 2.3 K/uL (0.60-3.4); LYMPHOCYTES % (AUTO) 27.1 (10.0-50.0); MEAN CORPUSCULAR HEMOGLOBIN 28.8 pg (27.0-31.0); MEAN CORPUSCULAR HGB CONC 34.1 (31.8-35.4); MEAN CORPUSCULAR VOLUME 84.4 fl (80.0-94.0); MONOCYTES # (AUTO) 0.7 K/uL (0.4-2.0); MONOCYTES % (AUTO) 8.2 (0-10); NEUTROPHILS # (AUTO) 5.2 K/ul (2.0-6.9); NEUTROPHILS % (AUTO) 60.9; PLATELET COUNT 240 10^3/uL (140-440); RED BLOOD COUNT 5.46 10^6/ul (4.70-6.10); WHITE BLOOD COUNT 8.49 K/ul (4.2-10.2)
[2017-01-10 20:47] LABS: BILIRUBIN,URINE Negative (NEGATIVE); KETONES,URINE Trace (NEGATIVE); LEUKOCYTE ESTERASE ,URINE Negative (NEGATIVE); NITRITE,URINE Negative (NEGATIVE); PH,URINE 6.5 (5-9); PROTEIN,URINE Trace (NEGATIVE); URINE, BLOOD Trace-intact (NEGATIVE)
[2017-01-10 20:51] LABS: ADD URINE MICROSCOPIC YES
[2017-01-10 20:56] LABS: COCAIN SCREEN,URINE NEGATIVE (NEGATIVE)
[2017-01-10 21:02] LABS: ALBUMIN 4.2 g/dL (3.4-5.0); ALBUMIN/GLOBULIN RATIO 1.27; ANION GAP 16.4; BILIRUBIN,TOTAL 0.52 mg/dL (0.00-1.20); BUN/CREATININE RATIO 13.86; CALCIUM 9.8 mg/dL (8.2-10.2); CREATININE 1.01 mg/dL (0.60-1.10); POTASSIUM 4.4 mmol/L (3.5-5.1); TOTAL PROTEIN 7.5 g/dL (6.4-8.2)
[2017-01-10] MEDS: CEREBYX 1,000 MG in SODIUM CHLORIDE 100 ML IV STA (21:05)
[2017-01-10] MEDS: SODIUM CHLORIDE 1,000 ML IV STA (21:06)
[2017-01-10] MEDS: CEREBYX ONE (22:01)
== END 2017-01-10 23:09 | disposition home or self-care (01) ==
LOC: ED 19:49
DX: G40.909 Epilepsy, unspecified, not intractable, without status epilepticus (principal); M79.1 Myalgia; F17.210 Nicotine dependence, cigarettes, uncomplicated; Z79.899 Other long term (current) drug therapy
CPT/HCPCS: 36415; 80053; 80306; 81001; 82550; 85025; 93005; 93010; 96361; 96365; 99283

== ENCOUNTER 2017-01-16 20:34 | Emergency (ER) ==
[2017-01-16 20:45] VITALS: BP 123/79; TEMP 98.2; BMI 25.1
[2017-01-16 21:08] LABS: BASOPHILS # (AUTO) 0.1 K/uL (0-0.2); EOSINOPHILS # (AUTO) 0.3 K/ul (0.0-0.7); EOSINOPHILS % (AUTO) 3.7 % (0.0-7.0); HEMATOCRIT 43.4 % (42.0-52.0); HEMOGLOBIN 14.8 g/dl (14.0-18.0); IMMATURE GRANULOCYTE % (AUTO) 0.4 % (0.0-5.0); LYMPHOCYTES # (AUTO) 2.4 K/uL (0.60-3.4); LYMPHOCYTES % (AUTO) 30.2 (10.0-50.0); MEAN CORPUSCULAR HEMOGLOBIN 28.7 pg (27.0-31.0); MEAN CORPUSCULAR HGB CONC 34.1 (31.8-35.4); MEAN CORPUSCULAR VOLUME 84.3 fl (80.0-94.0); MONOCYTES # (AUTO) 0.8 K/uL (0.4-2.0); MONOCYTES % (AUTO) 10.3 (0-10); NEUTROPHILS # (AUTO) 4.2 K/ul (2.0-6.9); NEUTROPHILS % (AUTO) 54.4; PLATELET COUNT 251 10^3/uL (140-440); RED BLOOD COUNT 5.15 10^6/ul (4.70-6.10); WHITE BLOOD COUNT 7.79 K/ul (4.2-10.2)
[2017-01-16 21:31] LABS: ALANINE AMINOTRANSFERASE 37 U/L (12-78); ALBUMIN/GLOBULIN RATIO 1.33; ALKALINE PHOSPHATASE 86 U/L (50-136); ANION GAP 13.3; ASPARTATE AMINO TRANSFERASE 21 U/L (15-37); BLOOD UREA NITROGEN 12 mg/dL (7-18); CALCIUM 9.5 mg/dL (8.2-10.2); CARBON DIOXIDE 27 mmol/L (21-32); CHLORIDE 105 mmol/L (98-107); CREATININE 0.96 mg/dL (0.60-1.10); GLUCOSE 86 mg/dL (70-100); POTASSIUM 4.3 mmol/L (3.5-5.1); SODIUM 141 mmol/L (136-145)
--- NOTE | 2017-01-16 21:38 | ED.PDOC ---
General ED Provider: Dr. MISAEL KESSLER Chief Complaint: Seizure Stated Complaint: Says had 2 seizures 2 hours ago. Says witnessed them. Says was standing but woke up on the hardwood floor. Doesn't remember it. c/o joint pain now all over. Says started new med approx 1 week ago - Dilantin. Is unsure if the med has helped. Has appt in March with neurologist at [facility]. Time Seen by Physician: 21:36 Mode of Arrival: Walk-In Information Source: Patient Exam Limitations: No limitations [facility] and T[facility] Documentation Reviewed and Agree: Yes Neurological Complaint Exam - Seizure Complaint/Exam Onset/Duration: 1 hour ago Symptoms Are: Resolved Episodes Lasting: Minutes (1) Single or Multiple Episode: 2 Failed to Regain Consciousness: No Severity: Self-limited Location: All extremities Character: Generalized, Tonic-clonic Aggravating: Reports: None Alleviating: Reports: None Associated Signs and Symptoms: Reports: Anxiety. Denies: Emotional distress, Impaired speech, Bladder incontinence, Bowel incontinence, Trauma, Illness, Vomiting, Lethargy, Apnea SAH Risk Factors: Reports: None Meningitis Risk Factors: Reports: None SDH Risk Factors: Reports: None Related Surgical History: Reports: None Carotid Bruit Present: No Cephalohematoma Present: No Tongue Bitten: No Neck Pain Present: No Glascow Coma Scale (see protocol): 15 Nystagmus Present: No Gag Reflex Present: Yes Speech: Present: Normal Findings Aphasia: Present: None Meningeal Signs Positive: No Focal Weakness: Present: None Focal Sensory Loss: Reports: None Gait: Normal [id number]: Normal Findings Pronator Drift: Present: None Romberg Test Positive: No Babinski Sign: Negative Right, Negative Left Heel to Toe Normal: Yes Signs of Injury: Present: Normal findings Review of Systems - Review Of Systems Constitutional: Reports: No symptoms Eyes: Reports: No symptoms Ears, Nose, Mouth, Throat: Reports: No symptoms Respiratory: Reports: No symptoms Cardiac: Reports: No symptoms GI: Reports: No symptoms : Reports: No symptoms Musculoskeletal: Reports: No symptoms Skin: Reports: No symptoms Neurological: Reports: Anxiety, Other (seizures ) Endocrine: Reports: No symptoms Hematologic/Lymphatic: Reports: No symptoms All Other Systems: Reviewed and Negative Past Medical History - Past Medical History Previously Healthy: Yes Endocrine: Reports: None, Dyslipidemia Cardiovascular: Reports: None Respiratory: Reports: Asthma Hematological: Reports: None Gastrointestinal: Reports: None Genitourinary: Reports: None Neuro/Psych: Reports: Migraine, Seizure, Anxiety, Depression Musculoskeletal: Reports: None Cancer: Reports: None 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 - Surgical History General Surgical History: Reports: Tonsillectomy, Adenoidectomy, Orthopedic ( WRIST SURGERY), Other (EYE, EAR), Unknown - Family History Family History: Reports: Unknown - Social History Smoking Status: Current every day smoker, Heavy tobacco smoker Hx Substance Use: No Alcohol Screening: None - Immunizations Tetanus Shot up to Date: Yes Physical Exam - Physical Exam Appearance: Well-appearing, No pain distress, Well-nourished Eyes: CIARA, EOMI, Conjunctiva clear ENT: Ears normal, Nose normal, Oropharynx normal Respiratory: Airway patent, Breath sounds clear, Breath sounds equal, Respirations nonlabored Cardiovascular: RRR, Pulses normal, No rub, No murmur GI/: Soft, Nontender, No masses, Bowel sounds normal, No Organomegaly Musculoskeletal: Normal strength, ROM intact, No edema, No calf tenderness Skin: Warm, Dry, Normal color Neurological: Sensation intact, Motor intact, Reflexes intact, Cranial nerves intact, Alert, Oriented Psychiatric: Affect appropriate, Mood appropriate Critical Care Note - Critical Care Note Total Time (mins): 0 Course - Course Hematology/Chemistry: 01/16/17 21:00 01/16/17 21:00 Orders, Labs, Meds: Lab Review 01/16/17 21:00 WBC 7.79 RBC 5.15 Hgb 14.8 Hct 43.4 MCV 84.3 MCH 28.7 MCHC 34.1 RDW Coeff of Deisi 13.1 Plt Count 251 Immature Gran % (Auto) 0.4 Neut % (Auto) 54.4 Lymph % (Auto) 30.2 [place] % (Auto) 10.3 H Eos % (Auto) 3.7 Baso % (Auto) 1.0 Immature Gran # (Auto) 0.0 Neut # 4.2 Lymph # 2.4 [place] # 0.8 Eos # 0.3 Baso # 0.1 Sodium 141 Potassium 4.3 Chloride 105 Carbon Dioxide 27 Anion Gap 13.3 BUN 12 Creatinine 0.96 Estimated GFR (MDRD) 87.00 BUN/Creatinine Ratio 12.50 Glucose 86 Calcium 9.5 Total Bilirubin 0.30 AST 21 ALT 37 Alkaline Phosphatase 86 Total Protein 7.0 Albumin 4.0 Globulin 3.0 Albumin/Globulin Ratio 1.33 Phenytoin < 0.50 L Orders Category Date Time Status CBC W/ AUTO DIFF Stat LAB 01/16/17 21:00 Completed COMPREHENSIVE METABOLIC PANEL Stat LAB 01/16/17 21:00 Completed DILANTIN LEVEL [PHENYTOIN (DILANTIN)] Stat LAB 01/16/17 21:00 Completed Vital Signs: Temp Pulse Resp BP Pulse Ox 01/16/17 20:35 98.2 F 91 H 20 123/79 96 Departure - Departure Time of Disposition: 22:09 Disposition: HOME SELF-CARE Discharge Problem: Seizure Instructions: Epilepsy (ED) Condition: Fair Pt referred to PMD for follow-up: Yes (neurology ) Additional Instructions: continue to take medications as prescribed Follow up with neurology Allergies/Adverse Reactions: Allergies tramadol Allergy (Severe, Verified 01/16/17 20:45) itching all over dextromethorphan HBr [From NyQuil] Adverse Reaction (Verified 01/16/17 20:45) doxylamine [From NyQuil] Adverse Reaction (Verified 01/16/17 20:45) prochlorperazine edisylate [From Compazine] Adverse Reaction (Verified 01/16/17 20:45) prochlorperazine maleate [From Compazine] Adverse Reaction (Verified 01/16/17 20 :45) Itching pseudoephedrine HCl [From NyQuil] Adverse Reaction (Verified 01/16/17 20:45) Itching Home Medications: Ambulatory Orders Albuterol Sulfate [Proair Hfa] 2 puff IH Q4H PRN 11/26/15 Simvastatin 20 mg PO DAILY 02/19/16 Fluticasone Propionate 110 Mcg [Flovent Hfa 110 Mcg] 2 puff IH BID 02/29/16 Hydrocodone Bit/Acetaminophen [[place] 7.5-325] 7.5 tab PO TID 05/27/16 Levetiracetam [Keppra] 3,000 mg PO DAILY 08/08/16 Phenytoin Cap [Dilantin] 100 mg PO TID #90 capsule 01/10/17 Disposition Discussed With: Patient, Family
== END 2017-01-16 22:18 | disposition home or self-care (01) ==
LOC: ED 20:34
DX: G40.909 Epilepsy, unspecified, not intractable, without status epilepticus (principal); F17.210 Nicotine dependence, cigarettes, uncomplicated
CPT/HCPCS: 36415; 80053; 80185; 85025; 99284

== ENCOUNTER 2017-01-20 00:32 | Emergency (ER) ==
[2017-01-20 00:43] VITALS: BP 120/76; TEMP 98.2; BMI 25.0
[2017-01-20] MEDS ORDERED: DILAUDID 1 MG/ML SYRINGE IM STA (00:55)
[2017-01-20] MEDS ORDERED: PHENERGAN 25 MG/ML VIAL IM STA (00:55)
--- NOTE | 2017-01-20 01:04 | ED.PDOC ---
General ED Provider: Dr. TY STALLINGS-ER Chief Complaint: Headache Stated Complaint: jesus manuel got a migraine Time Seen by Physician: 01:02 Mode of Arrival: Walk-In Information Source: Patient Exam Limitations: No limitations Primary Care Provider: [facility] Nursing and Triage Documentation Reviewed and Agree: Yes Neurological Complaint Exam - Headache Complaint/Exam Onset: Gradual Duration: several hours Symptoms Are: Still present Timing: Constant Worst Headache Ever: No Initial Severity: Mild Current Severity: Moderate Location: Diffuse Character: Reports: Dull, Throbbing, Pressure, Typical headache, Migraine Aggravating: Reports: Bright lights Alleviating: Reports: None Associated Signs and Symptoms: Reports: Nausea. Denies: Dizziness, Seizure, Vomiting, Sinus pressure, Fever, Neck pain, Neck stiffness, Decreased LOC, Visual changes Related History: Reports: Similar episode Related Surgical History: Reports: None SAH Risk Factors: Reports: None Meningitis Risk Factors: Reports: None SDH Risk Factors: Reports: Male Temporal Arteritis Risk Factors: Reports: Normal Head CT Within Last 12 Months: Yes Fundoscopic Exam: Present: Normal Findings Papilledema Present: No Temporal Artery Tenderness: Present: None Sinus Tenderness: Present: None TMJ Tenderness: Present: None Glascow Coma Scale (see protocol): 15 Meningeal Signs Positive: No Pain on Passive Flexion-Positive Kernig's: No ROM Limited In: No Limitiations Focal Weakness: Present: None Focal Sensory Loss: Present: None Gait: Normal Nystagmus Present: No Gag Reflex Present: Yes [id number]: Normal Findings Romberg Test Positive: No Babinski Sign: Negative Right, Negative Left Heel to Toe Normal: Yes Differential Diagnoses: Migraine Review of Systems - Review Of Systems Constitutional: Reports: No symptoms Eyes: Reports: No symptoms Ears, Nose, Mouth, Throat: Reports: No symptoms Respiratory: Reports: No symptoms Cardiac: Reports: No symptoms GI: Reports: Nausea : Reports: No symptoms Musculoskeletal: Reports: No symptoms Skin: Reports: No symptoms Neurological: Reports: Headache Endocrine: Reports: No symptoms Hematologic/Lymphatic: Reports: No symptoms All Other Systems: Reviewed and Negative Past Medical History - Past Medical History Previously Healthy: Yes Endocrine: Reports: None, Dyslipidemia Cardiovascular: Reports: None Respiratory: Reports: Asthma Hematological: Reports: None Gastrointestinal: Reports: None Genitourinary: Reports: None Neuro/Psych: Reports: Migraine, Seizure, Anxiety, Depression Musculoskeletal: Reports: None Cancer: Reports: None 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 - Surgical History General Surgical History: Reports: Tonsillectomy, Adenoidectomy, Orthopedic ( [facility]RIST SURGERY), Other (EYE, EAR), Unknown - Family History Family History: Reports: Unknown - Social History Smoking Status: Current every day smoker, Heavy tobacco smoker Hx Substance Use: No Alcohol Screening: None - Immunizations Tetanus Shot up to Date: Yes Physical Exam - Physical Exam Appearance: Well-appearing, No pain distress, Well-nourished Pain Distress: Moderate Eyes: CIARA, EOMI, Conjunctiva clear ENT: Ears normal, Nose normal, Oropharynx normal Neck: Supple Respiratory: Airway patent Cardiovascular: RRR, Pulses normal, No rub, No murmur GI/: Soft Musculoskeletal: Normal strength, ROM intact, No edema, No calf tenderness Skin: Warm Neurological: Sensation intact, Motor intact, Reflexes intact, Cranial nerves intact, Alert, Oriented Psychiatric: Affect appropriate, Mood appropriate Re-Evaluation - Re-Evaluation Time of Re-Evaluation: 01:30 Vital Signs Stable: Yes Pain Level: 0 Appearance: NAD Lungs: Clear Skin: Warm and Dry Neuro: Alert and Oriented X3 CV: RRR Critical Care Note - Critical Care Note Total Time (mins): 0 Course - Course Orders, Labs, Meds: Orders Category Date Time Status Hydromorphone HCl [Dilaudid 1 mg/ml Syringe] MEDS 01/20/17 00:55 Discontinued 1 mg IM ONCE STA Promethazine HCl [Phenergan 25 mg/ml Vial] MEDS 01/20/17 00:55 Discontinued 25 mg IM ONCE STA Medications Discontinued Medications Generic Name Dose Route Start Last Admin Trade Name Freq PRN Reason Stop Dose Admin Hydromorphone HCl 1 mg 01/20/17 00:55 Dilaudid 1 Mg/Ml Syringe IM 01/20/17 00:56 ONCE STA Promethazine HCl 25 mg 01/20/17 00:55 Phenergan 25 Mg/Ml Vial IM 01/20/17 00:56 ONCE STA Vital Signs: Temp Pulse Resp BP Pulse Ox 01/20/17 00:36 98.2 F 80 18 120/76 96 Departure - Departure Time of Disposition: 01:04 Disposition: HOME SELF-CARE Discharge Problem: Migraine headache Qualifiers: Migraine type: without aura Status migrainosus presence: without status migrainosus Intractability: not intractable Qualifier Code: (G43.009) Migraine without aura, not intractable, without status migrainosus Instructions: Migraine Headache (ED) Condition: Good Pt referred to PMD for follow-up: Yes Additional Instructions: f/u withpcp Allergies/Adverse Reactions: Allergies tramadol Allergy (Severe, Verified 01/20/17 00:43) itching all over dextromethorphan HBr [From NyQuil] Adverse Reaction (Verified 01/20/17 00:43) doxylamine [From NyQuil] Adverse Reaction (Verified 01/20/17 00:43) prochlorperazine edisylate [From Compazine] Adverse Reaction (Verified 01/20/17 00:43) prochlorperazine maleate [From Compazine] Adverse Reaction (Verified 01/20/17 00 :43) Itching pseudoephedrine HCl [From NyQuil] Adverse Reaction (Verified 01/20/17 00:43) Itching Home Medications: Ambulatory Orders Albuterol Sulfate [Proair Hfa] 2 puff IH Q4H PRN 11/26/15 Simvastatin 20 mg PO DAILY 02/19/16 Fluticasone Propionate 110 Mcg [Flovent Hfa 110 Mcg] 2 puff IH BID 02/29/16 Hydrocodone Bit/Acetaminophen [[place]night 7.5-325] 7.5 tab PO TID 05/27/16 Levetiracetam [Keppra] 3,000 mg PO DAILY 08/08/16 Phenytoin Cap [Dilantin] 100 mg PO TID #90 capsule 01/10/17 Disposition Discussed With: Patient, Family
== END 2017-01-20 01:36 | disposition home or self-care (01) ==
LOC: ED 00:32
DX: G43.009 Migraine without aura, not intractable, without status migrainosus (principal); F17.210 Nicotine dependence, cigarettes, uncomplicated
CPT/HCPCS: 96372; 99283

== ENCOUNTER 2017-02-08 15:56 | Emergency (ER) ==
[2017-02-08 16:00] VITALS: BP 125/79; TEMP 97.5; BMI 25.4
--- NOTE | 2017-02-08 16:36 | ED.PDOC ---
General ED Provider: Dr. JENNIFER NASH Chief Complaint: Foot Pain/Injury Stated Complaint: RIGHT ANKLE, FOOT PAIN Time Seen by Physician: 16:00 (SEEN WITH NURSING) Mode of Arrival: Walk-In Information Source: Patient Exam Limitations: No limitations [facility] and [facility] Documentation Reviewed and Agree: Yes Musculoskeletal Complaint Exam - Ankle/Foot Complaint/Exam Location of Injury: Reports: Right, Ankle, Foot Mechanism of Injury: Reports: Trauma (TWISTED IT ) Onset/Duration: 9 HRS AGO Symptoms Are: Reports: Still present Onset of Pain: Reports: Hours Initial Severity: Moderate Current Severity: Moderate Location: Reports: Discrete Character: Reports: Aching Alleviating: Reports: Rest Aggravating: Reports: Movement Able to Bear Weight: Yes Associated Signs and Symptoms: Denies: Swelling, Redness, Bruising, Fever, Weakness, Numbness, Tingling Gout Risk Factors: Reports: None Related Surgical History: Reports: None Tenderness: Present: Lateral malleolus Limited Range of Motion: Present: Inversion, Eversion Differential Diagnosis: Closed Fracture, Sprain, Strain Review of Systems - Review Of Systems Constitutional: Reports: No symptoms Eyes: Reports: No symptoms Ears, Nose, Mouth, Throat: Reports: No symptoms Respiratory: Reports: No symptoms Cardiac: Reports: No symptoms GI: Reports: No symptoms : Reports: No symptoms Musculoskeletal: Reports: Joint pain Skin: Reports: No symptoms Neurological: Reports: No symptoms Endocrine: Reports: No symptoms Hematologic/Lymphatic: Reports: No symptoms All Other Systems: Reviewed and Negative Past Medical History - Past Medical History Previously Healthy: Yes Endocrine: Reports: None, Dyslipidemia Cardiovascular: Reports: None Respiratory: Reports: Asthma Hematological: Reports: None Gastrointestinal: Reports: None Genitourinary: Reports: None Neuro/Psych: Reports: Migraine, Seizure, Anxiety, Depression Musculoskeletal: Reports: None Cancer: Reports: None 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 - Surgical History General Surgical History: Reports: Tonsillectomy, Adenoidectomy, Orthopedic ( [facility]ST SURGERY), Other (EYE, EAR), Unknown - Family History Family History: Reports: Unknown - Social History Smoking Status: Current every day smoker, Heavy tobacco smoker Hx Substance Use: No Alcohol Screening: None Physical Exam - Physical Exam Appearance: Well-appearing, No pain distress, Well-nourished Eyes: CIARA, EOMI, Conjunctiva clear ENT: Ears normal, Nose normal, Oropharynx normal Respiratory: Airway patent, Breath sounds clear, Breath sounds equal, Respirations nonlabored Cardiovascular: RRR, Pulses normal, No rub, No murmur GI/: Soft, Nontender, No masses, Bowel sounds normal, No Organomegaly Musculoskeletal: Limited ROM (RIGHT ANKLE) Skin: Warm, Dry, Normal color Neurological: Sensation intact, Motor intact, Reflexes intact, Cranial nerves intact, Alert, Oriented Psychiatric: Affect appropriate, Mood appropriate Interpretation - Radiology Interpretation Radiology Interpretation By: Radiologist Critical Care Note - Critical Care Note Total Time (mins): 0 Course - Course Orders, Labs, Meds: Orders Category Date Time Status ANKLE, RIGHT MIN 3 VIEWS Stat RADS 02/08/17 16:21 Ordered FOOT, RIGHT 3 VIEWS Stat RADS 02/08/17 16:22 Ordered Vital Signs: Temp Pulse Resp BP Pulse Ox 02/08/17 15:56 97.5 F L 87 20 125/79 96 Departure - Departure Time of Disposition: 17:10 Disposition: HOME SELF-CARE Discharge Problem: Ankle sprain Qualifiers: Encounter type: initial encounter Involved ligament of ankle: unspecified ligament Laterality: right Qualifier Code: (S93.401A) Sprain of unspecified ligament of right ankle, initial encounter Instructions: Ankle Sprain (ED) Condition: Good Pt referred to PMD for follow-up: Yes Allergies/Adverse Reactions: Allergies tramadol Allergy (Severe, Verified 02/08/17 16:00) itching all over dextromethorphan HBr [From NyQuil] Adverse Reaction (Verified 02/08/17 16:00) doxylamine [From NyQuil] Adverse Reaction (Verified 02/08/17 16:00) prochlorperazine edisylate [From Compazine] Adverse Reaction (Verified 02/08/17 16:00) prochlorperazine maleate [From Compazine] Adverse Reaction (Verified 02/08/17 16 :00) Itching pseudoephedrine HCl [From NyQuil] Adverse Reaction (Verified 02/08/17 16:00) Itching Home Medications: Ambulatory Orders Albuterol Sulfate [Proair Hfa] 2 puff IH Q4H PRN 11/26/15 Simvastatin 20 mg PO DAILY 02/19/16 Fluticasone Propionate 110 Mcg [Flovent Hfa 110 Mcg] 2 puff IH BID 02/29/16 Hydrocodone Bit/Acetaminophen [[place] 7.5-325] 7.5 tab PO TID 05/27/16 Levetiracetam [Keppra] 3,000 mg PO DAILY 08/08/16 Phenytoin Cap [Dilantin] 100 mg PO TID #90 capsule 01/10/17 Hydrocodone/Acetaminophen [Basom 10-325 Tablet] 1 each PO Q8HR #10 tablet
--- NOTE | 2017-02-08 16:40 | DI ---
EXAM: Right ankle. [place] HISTORY: Fall, pain COMPARISON: None FINDINGS: The bones are normal. Ankle mortise is symmetric. No focal soft tissue abnormality. IMPERSSION: Normal examination.
--- NOTE | 2017-02-08 16:40 | DI ---
Exam: Three x-rays of the right foot. Comparison: None available. Reason for exam: Fall with pain. FINDINGS: No acute fracture or malalignment. The joint spaces are well maintained. No unexplained calcific soft tissue densities or radiopaque retained foreign bodies. Impression: No acute fracture or malalignment in the right foot.
== END 2017-02-08 16:53 | disposition home or self-care (01) ==
LOC: ED 15:56
DX: S93.401A Sprain of unspecified ligament of right ankle, initial encounter (principal); X50.1XXA Overexertion from prolonged static or awkward postures, initial encounter; F17.210 Nicotine dependence, cigarettes, uncomplicated
CPT/HCPCS: 99283

== ENCOUNTER 2017-02-12 16:03 | Emergency (ER) | payer OTHER ==
[2017-02-12 16:04] VITALS: BMI 25.4
[2017-02-12 16:09] VITALS: BP 116/74; TEMP 97.8
[2017-02-12] MEDS ORDERED: DILAUDID 2 MG/ML SYRINGE IM STA (16:46)
--- NOTE | 2017-02-12 16:46 | ED.PDOC ---
General ED Provider: Dr. ALEXANDER BAILON Chief Complaint: Headache Stated Complaint: awoke with severe headache this, similar to previous migraines Time Seen by Physician: 16:39 Mode of Arrival: Walk-In Information Source: Patient Exam Limitations: No limitations [facility] T[facility] Documentation Reviewed and Agree: Yes Neurological Complaint Exam - Headache Complaint/Exam Duration: this monring upon awakening Symptoms Are: Still present Timing: Constant Episodes Lasting: Hours Worst Headache Ever: No Initial Severity: Severe Current Severity: Severe Location: Right, Left, Temporal (and across eyes) Character: Reports: Throbbing, Typical headache, Migraine Aggravating: Reports: Exertion, Bright lights (sounds) Alleviating: Reports: None Associated Signs and Symptoms: Reports: Nausea Related History: Reports: Similar episode (previous migraines) Related Surgical History: Reports: None SAH Risk Factors: Reports: None Meningitis Risk Factors: Reports: None SDH Risk Factors: Reports: Male Temporal Arteritis Risk Factors: Reports: None Normal Head CT Within Last 12 Months: No Fundoscopic Exam: Present: Normal Findings Papilledema Present: No Temporal Artery Tenderness: Present: None Sinus Tenderness: Present: None TMJ Tenderness: Present: None Meningeal Signs Positive: No Pain on Passive Flexion-Positive Kernig's: No ROM Limited In: No Limitiations Focal Weakness: Present: None Focal Sensory Loss: Present: None Gait: Normal Nystagmus Present: No Gag Reflex Present: No [id number]: Normal Findings Romberg Test Positive: No Babinski Sign: Negative Right, Negative Left Heel to Toe Normal: Yes Differential Diagnoses: Migraine Review of Systems - Review Of Systems Constitutional: Reports: No symptoms Eyes: Reports: Photophobia Ears, Nose, Mouth, Throat: Reports: No symptoms Respiratory: Reports: No symptoms Cardiac: Reports: No symptoms GI: Reports: Nausea : Reports: No symptoms Musculoskeletal: Reports: No symptoms Skin: Reports: No symptoms Neurological: Reports: Headache All Other Systems: Reviewed and Negative Past Medical History - Past Medical History Previously Healthy: Yes Endocrine: Reports: None, Dyslipidemia Cardiovascular: Reports: None Respiratory: Reports: Asthma Hematological: Reports: None Gastrointestinal: Reports: None Genitourinary: Reports: None Neuro/Psych: Reports: Migraine, Seizure, Anxiety, Depression Musculoskeletal: Reports: None Cancer: Reports: None 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 - Surgical History General Surgical History: Reports: Tonsillectomy, Adenoidectomy, Orthopedic ( [facility]ST SURGERY), Other (EYE, EAR), Unknown - Family History Family History: Reports: Unknown - Social History Smoking Status: Current every day smoker, Heavy tobacco smoker Hx Substance Use: No Alcohol Screening: None Lives: Alone - Immunizations Tetanus Shot up to Date: Yes Physical Exam - Physical Exam Appearance: Well-appearing Ill-appearing: None Pain Distress: Severe Eyes: CIARA, EOMI, Conjunctiva clear ENT: Ears normal, Nose normal, Oropharynx normal Neck: Supple Respiratory: Airway patent, Breath sounds clear, Breath sounds equal, Respirations nonlabored Cardiovascular: RRR, Pulses normal, No rub, No murmur GI/: Soft, Nontender, No masses, Bowel sounds normal, No Organomegaly Musculoskeletal: Normal strength, ROM intact, No edema, No calf tenderness Skin: Warm, Dry, Normal color Neurological: Sensation intact, Motor intact, Reflexes intact, Cranial nerves intact, Alert, Oriented Psychiatric: Affect appropriate, Mood appropriate Critical Care Note - Critical Care Note Total Time (mins): 0 Course - Course Vital Signs: Temp Pulse Resp BP Pulse Ox 02/12/17 16:04 97.8 F 76 20 116/74 96 Departure - Departure Time of Disposition: 16:54 Disposition: HOME SELF-CARE Discharge Problem: Migraine Instructions: Migraine Headache (ED) Condition: Good Pt referred to PMD for follow-up: No (if headache is present tomorrow, see PCP) Allergies/Adverse Reactions: Allergies tramadol Allergy (Severe, Verified 02/12/17 16:12) itching all over dextromethorphan HBr [From NyQuil] Adverse Reaction (Verified 02/12/17 16:12) doxylamine [From NyQuil] Adverse Reaction (Verified 02/12/17 16:12) prochlorperazine edisylate [From Compazine] Adverse Reaction (Verified 02/12/17 16:12) prochlorperazine maleate [From Compazine] Adverse Reaction (Verified 02/12/17 16 :12) Itching pseudoephedrine HCl [From NyQuil] Adverse Reaction (Verified 02/12/17 16:12) Itching Home Medications: Ambulatory Orders Albuterol Sulfate [Proair Hfa] 2 puff IH Q4H PRN 11/26/15 Simvastatin 20 mg PO DAILY 02/19/16 Fluticasone Propionate 110 Mcg [Flovent Hfa 110 Mcg] 2 puff IH BID 02/29/16 Hydrocodone Bit/Acetaminophen [[place] 7.5-325] 7.5 tab PO TID 05/27/16 Levetiracetam [Keppra] 3,000 mg PO DAILY 08/08/16 Phenytoin Cap [Dilantin] 100 mg PO TID #90 capsule 01/10/17 Hydrocodone/Acetaminophen [[place]ane 10-325 Tablet] 1 each PO Q8HR #10 tablet Disposition Discussed With: Patient
[2017-02-12] MEDS ORDERED: PHENERGAN 25 MG/ML VIAL IM STA (16:47)
== END 2017-02-12 17:29 | disposition home or self-care (01) ==
LOC: ED 16:03
DX: G43.909 Migraine, unspecified, not intractable, without status migrainosus (principal); F17.210 Nicotine dependence, cigarettes, uncomplicated
CPT/HCPCS: 96372; 99283

== ENCOUNTER 2017-02-16 21:49 | Emergency (ER) | payer OTHER ==
[2017-02-16 21:49] VITALS: BMI 25.4
[2017-02-16] MEDS ORDERED: DILAUDID 1 MG/ML SYRINGE IM STA (21:58)
[2017-02-16] MEDS ORDERED: PHENERGAN 25 MG/ML VIAL IM STA (21:58)
[2017-02-16 22:00] VITALS: BP 119/73; TEMP 98.6
--- NOTE | 2017-02-16 22:08 | ED.PDOC ---
General ED Provider: Dr. TY STALLINGS-ER Chief Complaint: Headache Stated Complaint: jesus manuel got a migraine canseco Time Seen by Physician: 21:55 Mode of Arrival: Walk-In Information Source: Patient Exam Limitations: No limitations Primary Care [facility]: [facility] Nursing and Triage Documentation Reviewed and Agree: Yes Neurological Complaint Exam - Headache Complaint/Exam Onset: Gradual Duration: 4 days Symptoms Are: Still present Timing: Constant Worst Headache Ever: No Initial Severity: Mild Current Severity: Moderate Location: Diffuse Character: Reports: Dull, Throbbing, Typical headache, Migraine Aggravating: Reports: Bright lights Associated Signs and Symptoms: Reports: Nausea, Vomiting. Denies: Dizziness, Seizure, Sinus pressure, Fever, Neck pain, Neck stiffness, Decreased LOC, Visual changes Related History: Reports: Similar episode Related Surgical History: Reports: None SAH Risk Factors: Reports: None Meningitis Risk Factors: Reports: None SDH Risk Factors: Reports: None Temporal Arteritis Risk Factors: Reports: Normal Head CT Within Last 12 Months: Yes Fundoscopic Exam: Present: Normal Findings Papilledema Present: No Temporal Artery Tenderness: Present: None Sinus Tenderness: Present: None TMJ Tenderness: Present: None Glascow Coma Scale (see protocol): 15 Meningeal Signs Positive: No Pain on Passive Flexion-Positive Kernig's: Yes ROM Limited In: No Limitiations Focal Weakness: Present: None Focal Sensory Loss: Present: None Gait: Normal Nystagmus Present: No Gag Reflex Present: Yes [id number]: Normal Findings Romberg Test Positive: No Babinski Sign: Negative Right, Negative Left Heel to Toe Normal: Yes Differential Diagnoses: Migraine Review of Systems - Review Of Systems Constitutional: Reports: No symptoms Eyes: Reports: No symptoms Ears, Nose, Mouth, Throat: Reports: No symptoms Respiratory: Reports: No symptoms Cardiac: Reports: No symptoms GI: Reports: Nausea, Vomiting : Reports: No symptoms Musculoskeletal: Reports: No symptoms Skin: Reports: No symptoms Neurological: Reports: Headache Endocrine: Reports: No symptoms Hematologic/Lymphatic: Reports: No symptoms All Other Systems: Reviewed and Negative Past Medical History - Past Medical History Previously Healthy: Yes Endocrine: Reports: None, Dyslipidemia Cardiovascular: Reports: None Respiratory: Reports: Asthma Hematological: Reports: None Gastrointestinal: Reports: None Genitourinary: Reports: None Neuro/Psych: Reports: Migraine, Seizure, Anxiety, Depression Musculoskeletal: Reports: None Cancer: Reports: None 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 - Surgical History General Surgical History: Reports: Tonsillectomy, Adenoidectomy, Orthopedic ( [facility]RIST SURGERY), Other (EYE, EAR), Unknown - Family History Family History: Reports: Unknown - Social History Smoking Status: Current every day smoker, Heavy tobacco smoker Hx Substance Use: No Alcohol Screening: None - Immunizations Tetanus Shot up to Date: Yes Physical Exam - Physical Exam Appearance: Well-appearing, No pain distress, Well-nourished Pain Distress: Moderate Eyes: CIARA, EOMI, Conjunctiva clear ENT: Ears normal, Nose normal, Oropharynx normal Neck: Supple Respiratory: Airway patent, Breath sounds clear, Breath sounds equal, Respirations nonlabored Cardiovascular: RRR, Pulses normal, No rub, No murmur GI/: Soft, Nontender, No masses, Bowel sounds normal, No Organomegaly Musculoskeletal: Normal strength, ROM intact, No edema, No calf tenderness Skin: Warm Neurological: Alert, Oriented Psychiatric: Affect appropriate, Mood appropriate Re-Evaluation - Re-Evaluation Time of Re-Evaluation: 22:30 Status: Improved Vital Signs Stable: Yes Pain Level: 1 Appearance: NAD Lungs: Clear Skin: Warm and Dry Neuro: Alert and Oriented X3 CV: RRR Critical Care Note - Critical Care Note Total Time (mins): 0 Course - Course Orders, Labs, Meds: Orders Category Date Time Status Hydromorphone HCl [Dilaudid 1 mg/ml Syringe] MEDS 02/16/17 21:58 Discontinued 1 mg IM ONCE STA Promethazine HCl [Phenergan 25 mg/ml Vial] MEDS 02/16/17 21:58 Discontinued 25 mg IM ONCE STA Medications Discontinued Medications Generic Name Dose Route Start Last Admin Trade Name Freq PRN Reason Stop Dose Admin Hydromorphone HCl 1 mg 02/16/17 21:58 Dilaudid 1 Mg/Ml Syringe IM 02/16/17 21:59 ONCE STA Promethazine HCl 25 mg 02/16/17 21:58 Phenergan 25 Mg/Ml Vial IM 02/16/17 21:59 ONCE STA Vital Signs: Temp Pulse Resp BP Pulse Ox 02/16/17 21:50 98.6 F 88 20 119/73 96 Departure - Departure Time of Disposition: 22:09 Disposition: HOME SELF-CARE Discharge Problem: Migraine headache Qualifiers: Migraine type: unspecified Status migrainosus presence: without status migrainosus Intractability: not intractable Qualified Code(s): G43.909 - Migraine, unspecified, not intractable, without status migrainosus Instructions: Migraine Headache (ED) Condition: Good Pt referred to PMD for follow-up: Yes Additional Instructions: f/u with neurology Allergies/Adverse Reactions: Allergies tramadol Allergy (Severe, Verified 02/16/17 22:00) itching all over dextromethorphan HBr [From NyQuil] Adverse Reaction (Verified 02/16/17 22:00) doxylamine [From NyQuil] Adverse Reaction (Verified 02/16/17 22:00) prochlorperazine edisylate [From Compazine] Adverse Reaction (Verified 02/16/17 22:00) prochlorperazine maleate [From Compazine] Adverse Reaction (Verified 02/16/17 22 :00) Itching pseudoephedrine HCl [From NyQuil] Adverse Reaction (Verified 02/16/17 22:00) Itching Home Medications: Ambulatory Orders Albuterol Sulfate [Proair Hfa] 2 puff IH Q4H PRN 11/26/15 Simvastatin 20 mg PO DAILY 02/19/16 Fluticasone Propionate 110 Mcg [Flovent Hfa 110 Mcg] 2 puff IH BID 02/29/16 Hydrocodone Bit/Acetaminophen [[place] 7.5-325] 7.5 tab PO TID 05/27/16 Levetiracetam [Keppra] 3,000 mg PO DAILY 08/08/16 Phenytoin Cap [Dilantin] 100 mg PO TID #90 capsule 01/10/17 Disposition Discussed With: Patient, Family
== END 2017-02-16 22:27 | disposition home or self-care (01) ==
LOC: ED 21:49
DX: G43.909 Migraine, unspecified, not intractable, without status migrainosus (principal); F17.210 Nicotine dependence, cigarettes, uncomplicated
CPT/HCPCS: 96372; 99284

== ENCOUNTER 2017-02-26 22:53 | Emergency (ER) ==
[2017-02-26 22:53] VITALS: BMI 25.4
[2017-02-26 23:01] VITALS: BP 110/70; TEMP 97.6
[2017-02-26] MEDS ORDERED: PHENERGAN 25 MG/ML VIAL IM STA (23:19)
[2017-02-26] MEDS ORDERED: TORADOL IM STA (23:19)
[2017-02-26] MEDS ORDERED: ZOFRAN 4 MG/2 ML IM STA (23:20)
[2017-02-26 23:29] LABS: BASOPHILS # (AUTO) 0.1 K/uL (0-0.2); EOSINOPHILS # (AUTO) 0.3 K/ul (0.0-0.7); EOSINOPHILS % (AUTO) 4.2 % (0.0-7.0); HEMATOCRIT 38.4 % (42.0-52.0); HEMOGLOBIN 13.3 g/dl (14.0-18.0); IMMATURE GRANULOCYTE % (AUTO) 0.3 % (0.0-5.0); LYMPHOCYTES # (AUTO) 2.3 K/uL (0.60-3.4); LYMPHOCYTES % (AUTO) 33.6 (10.0-50.0); MEAN CORPUSCULAR HEMOGLOBIN 29.3 pg (27.0-31.0); MEAN CORPUSCULAR HGB CONC 34.6 (31.8-35.4); MEAN CORPUSCULAR VOLUME 84.6 fl (80.0-94.0); MONOCYTES # (AUTO) 0.5 K/uL (0.4-2.0); MONOCYTES % (AUTO) 7.3 (0-10); NEUTROPHILS # (AUTO) 3.7 K/ul (2.0-6.9); NEUTROPHILS % (AUTO) 53.6; PLATELET COUNT 210 10^3/uL (140-440); RED BLOOD COUNT 4.54 10^6/ul (4.70-6.10); WHITE BLOOD COUNT 6.84 K/ul (4.2-10.2)
--- NOTE | 2017-02-26 23:45 | CT ---
EXAM: CT head without contrast. HISTORY: Fall. PROCEDURE: Contiguous axial CT images of the head without contrast with coronal and sagittal reforma ts. FINDINGS: The ventricles and basal cisterns are normal in size and configuration. No evidence of ma ss or midline shift. No intracranial hemorrhage or evidence of large vessel infarct. No extra-axial fluid collection. There is mucosal thickening in the paranasal sinuses. The mastoid air cells are well-aerated. No skull fracture. Impression: Negative CT of the head. Paranasal sinusitis.
[2017-02-26 23:47] LABS: ALBUMIN 3.4 g/dL (3.4-5.0); ALBUMIN/GLOBULIN RATIO 1.36; ANION GAP 12.5; BILIRUBIN,TOTAL 0.24 mg/dL (0.00-1.20); BUN/CREATININE RATIO 14.45; CALCIUM 8.7 mg/dL (8.2-10.2); CREATININE 0.83 mg/dL (0.60-1.10); POTASSIUM 3.5 mmol/L (3.5-5.1); TOTAL PROTEIN 5.9 g/dL (6.4-8.2)
--- NOTE | 2017-02-26 23:56 | CT ---
EXAM: CT of the cervical spine without contrast. HISTORY: Fall. PROCEDURE: Contiguous axial CT images of the cervical spine without contrast with coronal and sagitt al reformats. FINDINGS: There is normal alignment of the cervical vertebral bodies and facets. The vertebral bod y heights and intervertebral disc spaces are maintained. The C1-2 relationship is maintained. No pr evertebral soft tissue abnormalities. Impression: Negative CT of the cervical spine.
--- NOTE | 2017-02-26 23:57 | CT ---
EXAM: CT of the lumbar spine without contrast. HISTORY: Fall. PROCEDURE: Contiguous axial CT images of the lumbar spine without contrast with coronal and sagittal reformats. FINDINGS: There is normal alignment of the lumbar vertebral bodies and facets. The vertebral body h eights and intervertebral disc spaces are maintained. No paravertebral soft tissue abnormalities. Impression: Negative lumbar spine.
--- NOTE | 2017-02-27 00:01 | CT ---
EXAM: CT of the pelvis without contrast. HISTORY: Fall. PROCEDURE: Contiguous axial CT images of the pelvis without contrast with coronal and sagittal refor mats. FINDINGS: The bones are intact with no evidence of fracture. The joint spaces are maintained. The b ladder is minimally filled with no abnormality identified. The visualized loops of bowel are normal in appearance. No free fluid or free air in the pelvis. The seminal vesicles and prostate gland are unremarkable. There is an injection granuloma in the right flank. Impression: No evidence of fracture. Injection granuloma as described.
--- NOTE | 2017-02-27 00:20 | ED.PDOC ---
General ED Provider: Dr. TY STALLINGS-ER Chief Complaint: Extremity Pain/Injury Stated Complaint: i fell and went to [place]--my back hurts Time Seen by Physician: 22:55 Mode of Arrival: Walk-In Information Source: Patient, Family Exam Limitations: No limitations Primary Care Provider: JUSTIN GREENFIELD Nursing and Triage Documentation Reviewed and Agree: Yes Musculoskeletal Complaint Exam - Back Pain Complaint/Exam Mechanism of Injury: Reports: Trauma Onset/Duration: 24hrs Symptoms Are: Still present Timing: Constant Episodes Lasting: Hours Initial Severity: Mild Current Severity: Mild Location: Reports: Discrete Character: Reports: Dull Aggravating: Reports: Movements, Lifting, Bending, Walking Alleviating: Reports: None Associated Signs and Symptoms: Reports: Tingling. Denies: Swelling, Redness, Bruising, Fever, Weakness, Numbness, Abdominal pain, Flank pain, Bladder incontinence, Bowel incontinence, Weight loss, Pain with weight bearing Related History: Reports: Similar episode TAD Risk Factors: Reports: None AAA Risk Factors: Reports: None Cauda Equina Risk Factors: Reports: None Epidural Abcess Risk Factors: Reports: None Focal Tenderness: No Paraspinal Muscle Tenderness: No Paraspinal Muscle Spasm: No Scoliosis: No Lordosis: No Kyphosis: No SLR Test: Right Negative, Left Negative Hip Motion Testing Pain: Left Negative Focal Weakness: Present: None Focal Sensory Loss: Present: None Gait: Present: Abnormal Differential Diagnoses: Arthritis, Herniated Disk, Strain, Sprain Review of Systems - Review Of Systems Constitutional: Reports: No symptoms Eyes: Reports: No symptoms Ears, Nose, Mouth, Throat: Reports: No symptoms Respiratory: Reports: No symptoms Cardiac: Reports: No symptoms GI: Reports: No symptoms : Reports: No symptoms Musculoskeletal: Reports: Back pain, Muscle pain Skin: Reports: No symptoms Neurological: Reports: No symptoms Endocrine: Reports: No symptoms Hematologic/Lymphatic: Reports: No symptoms All Other Systems: Reviewed and Negative Past Medical History - Past Medical History Previously Healthy: Yes Endocrine: Reports: None, Dyslipidemia Cardiovascular: Reports: None Respiratory: Reports: Asthma Hematological: Reports: None Gastrointestinal: Reports: None Genitourinary: Reports: None Neuro/Psych: Reports: Migraine, Seizure, Anxiety, Depression Musculoskeletal: Reports: Back Pain Cancer: Reports: None 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 - Surgical History General Surgical History: Reports: Tonsillectomy, Adenoidectomy, Orthopedic ( WRIST SURGERY), Other (EYE, EAR), Unknown - Family History Family History: Reports: Unknown - Social History Smoking Status: Current every day smoker, Heavy tobacco smoker Hx Substance Use: No Alcohol Screening: None Lives: With family - Immunizations Tetanus Shot up to Date: Yes Physical Exam - Physical Exam Appearance: Well-appearing, No pain distress, Well-nourished Pain Distress: Mild Eyes: CIARA, EOMI, Conjunctiva clear ENT: Ears normal, Nose normal, Oropharynx normal Neck: Supple Respiratory: Airway patent Cardiovascular: RRR GI/: Soft, Nontender, No masses, Bowel sounds normal, No Organomegaly Musculoskeletal: Limited ROM Skin: Warm, Dry, Normal color Neurological: Sensation intact, Motor intact, Reflexes intact, Cranial nerves intact, Alert, Oriented Psychiatric: Affect appropriate, Mood appropriate Interpretation - Radiology Interpretation Radiology Interpretation By: Radiologist Radiology Results: Negative Exam Interpreted: CT Scan Re-Evaluation - Re-Evaluation Time of Re-Evaluation: 00:20 Status: Improved Vital Signs Stable: Yes Pain Level: 1 Appearance: NAD Lungs: Clear Skin: Warm and Dry Neuro: Alert and Oriented X3 CV: RRR Critical Care Note - Critical Care Note Total Time (mins): 0 Course - Course Hematology/Chemistry: 02/26/17 23:28 02/26/17 23:28 Orders, Labs, Meds: Lab Review 02/26/17 02/26/17 23:28 23:28 WBC 6.84 RBC 4.54 L Hgb 13.3 L Hct 38.4 L MCV 84.6 MCH 29.3 MCHC 34.6 RDW Coeff of Deisi 12.9 Plt Count 210 Immature Gran % (Auto) 0.3 Neut % (Auto) 53.6 Lymph % (Auto) 33.6 [place] % (Auto) 7.3 Eos % (Auto) 4.2 Baso % (Auto) 1.0 Immature Gran # (Auto) 0.0 Neut # 3.7 Lymph # 2.3 [place] # 0.5 Eos # 0.3 Baso # 0.1 Sodium 142 Potassium 3.5 Chloride 109 H Carbon Dioxide 24 Anion Gap 12.5 BUN 12 Creatinine 0.83 Estimated GFR (MDRD) 103.00 BUN/Creatinine Ratio 14.45 Glucose 97 Calcium 8.7 Total Bilirubin 0.24 AST 18 ALT 30 Alkaline Phosphatase 85 Total Protein 5.9 L Albumin 3.4 Globulin 2.5 Albumin/Globulin Ratio 1.36 Orders Category Date Time Status CBC W/ AUTO DIFF Stat LAB 02/26/17 23:28 Completed COMPREHENSIVE METABOLIC PANEL Stat LAB 02/26/17 23:28 Completed Ketorolac Tromethamine [Toradol] MEDS 02/26/17 23:19 Discontinued 60 mg IM ONCE STA Ondansetron HCl/Pf [Zofran 4 mg/2 ml] MEDS 02/26/17 23:20 Discontinued 4 mg IM ONCE STA CT CERVICAL SPINE W/O CONTRAST Stat RADS 02/26/17 23:[address] HEAD W/O CONTRAST Stat RADS 02/26/17 23:[address] LUMBAR SPINE W/O CONTRAST Stat RADS 02/26/17 23:[address] PELVIS W/O CONTRAST Stat RADS 02/26/17 23:16 Completed Medications Discontinued Medications Generic Name Dose Route Start Last Admin Trade Name Freq PRN Reason Stop Dose Admin Ketorolac Tromethamine 60 mg 02/26/17 23:19 02/26/17 23:50 Toradol IM 02/26/17 23:20 60 mg ONCE STA Administration Ondansetron HCl 4 mg 02/26/17 23:20 02/26/17 23:51 Zofran 4 Mg/2 Ml IM 02/26/17 23:21 4 mg ONCE STA Administration Vital Signs: Temp Pulse Resp BP Pulse Ox 02/26/17 22:54 97.6 F 86 24 110/70 95 Departure - Departure Time of Disposition: 00:20 Disposition: HOME SELF-CARE Discharge Problem: Injury of lower extremity Instructions: Acute Low Back Pain (ED) Condition: Good Pt referred to PMD for follow-up: Yes Additional Instructions: f/u with pcp Allergies/Adverse Reactions: Allergies tramadol Allergy (Severe, Verified 02/26/17 23:01) itching all over dextromethorphan HBr [From NyQuil] Adverse Reaction (Verified 02/26/17 23:01) doxylamine [From NyQuil] Adverse Reaction (Verified 02/26/17 23:01) prochlorperazine edisylate [From Compazine] Adverse Reaction (Verified 02/26/17 23:01) prochlorperazine maleate [From Compazine] Adverse Reaction (Verified 02/26/17 23 :01) Itching pseudoephedrine HCl [From NyQuil] Adverse Reaction (Verified 02/26/17 23:01) Itching Home Medications: Ambulatory Orders Albuterol Sulfate [Proair Hfa] 2 puff IH Q4H PRN 11/26/15 Simvastatin 20 mg PO DAILY 02/19/16 Fluticasone Propionate 110 Mcg [Flovent Hfa 110 Mcg] 2 puff IH BID PRN 02/29/16 Hydrocodone Bit/Acetaminophen [[place] 7.5-325] 7.5 tab PO TID 05/27/16 Levetiracetam [Keppra] 3,000 mg PO DAILY 08/08/16 Phenytoin Cap [Dilantin] 100 mg PO TID #90 capsule 01/10/17 Disposition Discussed With: Patient
== END 2017-02-27 00:25 | disposition home or self-care (01) ==
LOC: ED 22:53
DX: M54.5 Low back pain (principal); S89.90XA Unspecified injury of unspecified lower leg, initial encounter; R20.0 Anesthesia of skin; W19.XXXA Unspecified fall, initial encounter; F17.210 Nicotine dependence, cigarettes, uncomplicated
CPT/HCPCS: 36415; 80053; 85025; 96372; 99282

== ENCOUNTER 2017-02-27 13:26 | Outpatient (CLI) ==
[2017-02-26 22:53] VITALS: BMI 25.4
== END 2017-02-27 13:27 | disposition short-term general hospital (02) ==
LOC: AMBL 13:26
PROVIDERS: ATTEND Internal Medicine
DX: R56.9 Unspecified convulsions (principal); R53.1 Weakness

== ENCOUNTER 2017-03-01 20:15 | Emergency (ER) ==
[2017-03-01 20:16] VITALS: BMI 25.4
[2017-03-01] MEDS ORDERED: SODIUM CHLORIDE 1,000 ML IV STA (20:28)
--- NOTE | 2017-03-01 20:29 | ED.PDOC ---
General ED Provider: Dr. MISAEL KESSLER Chief Complaint: Seizure Stated Complaint: Patient is a 42 year old male who has a history of seizures. Has been in and out of the ER several times was at [facility] days ago for the same. Today, while sited had a generalized seizure for about 4 min and was post ictal for 10 mins afterwards. states that he has been taking medications as prescribed. Time Seen by Physician: 20:15 Mode of Arrival: Wheelchair Information Source: Family Exam Limitations: No limitations Primary Care Provider: JUSTIN GREENFIELD Seen Within Last 72 Hours for Same Complaint By: ED (Ruby, Reviewed Medical records ) Nursing and Triage Documentation Reviewed and Agree: Yes Neurological Complaint Exam - Seizure Complaint/Exam Onset/Duration: 20 min ago Symptoms Are: Resolved Timing: Intermittent Episodes Lasting: Minutes (20) Single or Multiple Episode: single Failed to Regain Consciousness: No Severity: Self-limited Location: All extremities Character: Generalized Aggravating: Reports: None Alleviating: Reports: Spontaneous resolution Associated Signs and Symptoms: Denies: Anxiety, Emotional distress, Impaired speech, Bladder incontinence, Bowel incontinence, Trauma, Illness, Vomiting, Lethargy, Apnea Related History: Reports: Similar episode SAH Risk Factors: Reports: None Meningitis Risk Factors: Reports: None SDH Risk Factors: Reports: None Related Surgical History: Reports: None Tongue Bitten: No Neck Pain Present: No Glascow Coma Scale (see protocol): 13 Nystagmus Present: No Gag Reflex Present: Yes Speech: Present: Slurred Aphasia: Present: Expressive Meningeal Signs Positive: No Focal Weakness: Present: None Focal Sensory Loss: Reports: None Gait: Unable Pronator Drift: Present: None Babinski Sign: Negative Right, Negative Left Differential Diagnoses: Drug Withdrawal, Seizure, Seizure Disorder Review of Systems - Review Of Systems Constitutional: Reports: Loss of appetite Eyes: Reports: No symptoms Respiratory: Reports: No symptoms Cardiac: Reports: No symptoms GI: Reports: No symptoms Musculoskeletal: Reports: Joint pain, Muscle pain Neurological: Reports: Anxiety, Tonic-Clonic seizures All Other Systems: Reviewed and Negative Past Medical History - Past Medical History Previously Healthy: Yes Endocrine: Reports: None, Dyslipidemia Cardiovascular: Reports: None Respiratory: Reports: Asthma Hematological: Reports: None Gastrointestinal: Reports: None Genitourinary: Reports: None Neuro/Psych: Reports: Migraine, Seizure, Anxiety, Depression Musculoskeletal: Reports: Back Pain Cancer: Reports: None 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 - Surgical History General Surgical History: Reports: Tonsillectomy, Adenoidectomy, Orthopedic ( WRIST SURGERY), Other (EYE, EAR), Unknown - Family History Family History: Reports: Unknown - Social History Smoking Status: Current every day smoker, Heavy tobacco smoker Hx Substance Use: No Alcohol Screening: None Physical Exam - Physical Exam Appearance: Ill-appearing Ill-appearing: Moderate Pain Distress: Mild Eyes: CIARA, EOMI, Conjunctiva clear Neck: Supple Respiratory: Airway patent, Breath sounds clear, Breath sounds equal, Respirations nonlabored Cardiovascular: RRR, Pulses normal, No rub, No murmur GI/: Soft, Bowel sounds normal Musculoskeletal: Normal strength, ROM intact Skin: Warm, Dry Neurological: Disoriented Psychiatric: Anxious Interpretation - Dish Carrier Rate: Normal Rhythm: Sinus Ectopy: None - EKG Interpretation Time of EKG #1: 20:16 Rate: Normal Rhythm: Sinus [place]: NL ST Segment: Normal Interpretation: Normal EKG Re-Evaluation - Re-Evaluation Time of Re-Evaluation: 00:20 Status: Improved Neuro: Other (no witnessed seizures in the ER) Critical Care Note - Critical Care Note Total Time (mins): 35 Course - Course Hematology/Chemistry: 03/01/17 20:39 03/01/17 20:39 Orders, Labs, Meds: Lab Review 03/01/17 03/01/17 03/01/17 20:26 20:39 20:39 WBC 6.73 RBC 4.42 L Hgb 13.0 L Hct 37.9 L MCV 85.7 MCH 29.4 MCHC 34.3 RDW Coeff of Deisi 12.9 Plt Count 208 Immature Gran % (Auto) 0.1 Neut % (Auto) 48.0 Lymph % (Auto) 38.3 [place] % (Auto) 7.7 Eos % (Auto) 5.3 Baso % (Auto) 0.6 Immature Gran # (Auto) 0.0 Neut # 3.2 Lymph # 2.6 [place] # 0.5 Eos # 0.4 Baso # 0.0 Puncture Site Rb O2 Saturation 95.0 ABG pH 7.447 ABG pCO2 40.8 ABG pO2 70.0 L ABG HCO3 28.2 H ABG Total CO2 29 H ABG Base Excess 4 H Ibrahima Test + FiO2 % 21.0 Sodium 143 Potassium 4.1 Chloride 107 Carbon Dioxide 27 Anion Gap 13.1 BUN 9 Creatinine 0.93 Estimated GFR (MDRD) 90.00 BUN/Creatinine Ratio 9.67 Glucose 66 L Calcium 9.0 Total Bilirubin 0.20 AST 12 L ALT 17 Alkaline Phosphatase 88 Total Protein 6.1 L Albumin 3.5 Globulin 2.6 Albumin/Globulin Ratio 1.35 Salicylate Level mg/dL < 5.0 Urine Opiates Screen Ur Oxycodone Screen Urine Methadone Screen Ur Propoxyphene Screen Acetaminophen < 3 L Ur Barbiturates Screen Phenytoin 5.47 L U Tricyclic Antidepress Ur Phencyclidine Scrn Ur Amphetamine Screen U Methamphetamines Scrn U Benzodiazepines Scrn Urine Cocaine Screen U Cannabinoids Screen Plasma/Serum Alcohol 03/01/17 03/02/17 20:50 00:10 WBC RBC Hgb Hct MCV MCH MCHC RDW Coeff of Deisi Plt Count Immature Gran % (Auto) Neut % (Auto) Lymph % (Auto) [place] % (Auto) Eos % (Auto) Baso % (Auto) Immature Gran # (Auto) Neut # Lymph # [place] # Eos # Baso # Puncture Site O2 Saturation ABG pH ABG pCO2 ABG pO2 ABG HCO3 ABG Total CO2 ABG Base Excess Ibrahima Test FiO2 % Sodium Potassium Chloride Carbon Dioxide Anion Gap BUN Creatinine Estimated GFR (MDRD) BUN/Creatinine Ratio Glucose Calcium Total Bilirubin AST ALT Alkaline Phosphatase Total Protein Albumin Globulin Albumin/Globulin Ratio Salicylate Level mg/dL Urine Opiates Screen Negative Ur Oxycodone Screen Positive Urine Methadone Screen Negative Ur Propoxyphene Screen Negative Acetaminophen Ur Barbiturates Screen Positive Phenytoin U Tricyclic Antidepress Negative Ur Phencyclidine Scrn Negative Ur Amphetamine Screen Negative U Methamphetamines Scrn Negative U Benzodiazepines Scrn Negative Urine Cocaine Screen Negative U Cannabinoids Screen Negative Plasma/Serum Alcohol < 10.0 Orders Category Date Time Status ABG DRAW REQUEST Stat CARDIO 03/01/17 20:26 Completed EKG-(ED ONLY) Stat CARDIO 03/01/17 20:10 Completed ED IV/MEDIPORT/POWERPORT .ONCE EMERGENCY 03/01/17 20:28 Active ABG Stat LAB 03/01/17 20:26 Completed ACETAMINOPHEN Stat LAB 03/01/17 20:39 Completed ASPIRIN LEVEL [SALICYLATE] Stat LAB 03/01/17 20:39 Completed BLOOD ALCOHOL Stat LAB 03/01/17 20:50 Completed CBC W/ AUTO DIFF Stat LAB 03/01/17 20:39 Completed COMPREHENSIVE METABOLIC PANEL Stat LAB 03/01/17 20:39 Completed DRUG SCREEN (RAPID FOR ED) [DRUG SCREEN, URINE, RAPID] LAB 03/02/17 00:10 Completed Stat PHENYTOIN (DILANTIN) Stat LAB 03/01/17 20:39 Completed 0.9 % Sodium Chloride [Saline Flush] MEDS 03/01/17 20:28 Discontinued 1 syr IVF PRN PRN Fosphenytoin Sodium [Cerebyx] MEDS 03/01/17 21:29 Discontinued 500 mg .ROUTE .STK-MED ONE Fosphenytoin Sodium [Cerebyx] MEDS 03/01/17 21:30 Discontinued 500 mg .ROUTE .STK-MED ONE Fosphenytoin Sodium [Cerebyx] 1,000 mg MEDS 03/01/17 21:17 Discontinued 0.9 % Sodium Chloride [Sodium Chloride] 100 ml IV ONCE Ketorolac Tromethamine [Toradol] MEDS 03/02/17 00:28 Discontinued 30 mg IVP ONCE STA Lidocaine HCl/Pf [Lidocaine HCl 1% Sdv] MEDS 03/01/17 21:20 Discontinued 5 ml SUBCUT ONCE STA Sodium Chloride 0.9% [Sodium Chloride] 1,000 ml MEDS 03/01/17 20:28 Discontinued IV BOLUS Medications Discontinued Medications Generic Name Dose Route Start Last Admin Trade Name Freq PRN Reason Stop Dose Admin Sodium Chloride 1,000 mls @ 1,000 mls/hr 03/01/17 20:28 03/01/17 21:05 Sodium Chloride IV 03/01/17 21:27 1,000 mls/hr BOLUS STA Administration Fosphenytoin Sodium 1,000 mg/ 120 mls @ 100 mls/hr 03/01/17 21:17 03/01/17 21 :40 Sodium Chloride IV 03/01/17 22:28 100 mls/hr ONCE STA Administration Ketorolac Tromethamine 30 mg 03/02/17 00:28 03/02/17 00:43 Toradol IVP 03/02/17 00:29 30 mg ONCE STA Administration Lidocaine HCl 5 ml 03/01/17 21:20 03/01/17 21:39 Lidocaine Hcl 1% Sdv SUBCUT 03/01/17 21:21 5 ml ONCE STA Administration Sodium Chloride 1 syr 03/01/17 20:28 03/01/17 21:05 Saline Flush IVF 1 syr PRN PRN Administration To flush IV Vital Signs: Temp Pulse Resp BP Pulse Ox 03/01/17 20:16 98.7 F 64 22 116/64 96 Departure - Departure Time of Disposition: 00:32 Disposition: HOME SELF-CARE Discharge Problem: Seizure Instructions: Epilepsy (ED) Condition: Stable Pt referred to PMD for follow-up: Yes Additional Instructions: Continue home medications Follow up with PCP in 3 days Allergies/Adverse Reactions: Allergies tramadol Allergy (Severe, Verified 03/01/17 20:34) itching all over dextromethorphan HBr [From NyQuil] Adverse Reaction (Verified 03/01/17 20:34) doxylamine [From NyQuil] Adverse Reaction (Verified 03/01/17 20:34) prochlorperazine edisylate [From Compazine] Adverse Reaction (Verified 03/01/17 20:34) prochlorperazine maleate [From Compazine] Adverse Reaction (Verified 03/01/17 20 :34) Itching pseudoephedrine HCl [From NyQuil] Adverse Reaction (Verified 03/01/17 20:34) Itching Home Medications: Ambulatory Orders Hydrocodone Bit/Acetaminophen [[place] 7.5-325] 7.5 tab PO TID 05/27/16 Levetiracetam [Keppra] 2,000 mg PO DAILY 08/08/16 Phenytoin Cap [Dilantin] 100 mg PO TID #90 capsule 01/10/17 Disposition Discussed With: Patient, Family
[2017-03-01 20:31] VITALS: BP 116/64; TEMP 98.7
[2017-03-01 20:43] LABS: BASOPHILS % (AUTO) 0.6 % (0.0-3.0); EOSINOPHILS # (AUTO) 0.4 K/ul (0.0-0.7); EOSINOPHILS % (AUTO) 5.3 % (0.0-7.0); HEMATOCRIT 37.9 % (42.0-52.0); IMMATURE GRANULOCYTE % (AUTO) 0.1 % (0.0-5.0); LYMPHOCYTES # (AUTO) 2.6 K/uL (0.60-3.4); LYMPHOCYTES % (AUTO) 38.3 (10.0-50.0); MEAN CORPUSCULAR HEMOGLOBIN 29.4 pg (27.0-31.0); MEAN CORPUSCULAR HGB CONC 34.3 (31.8-35.4); MEAN CORPUSCULAR VOLUME 85.7 fl (80.0-94.0); MONOCYTES # (AUTO) 0.5 K/uL (0.4-2.0); MONOCYTES % (AUTO) 7.7 (0-10); NEUTROPHILS # (AUTO) 3.2 K/ul (2.0-6.9); PLATELET COUNT 208 10^3/uL (140-440); RED BLOOD COUNT 4.42 10^6/ul (4.70-6.10); WHITE BLOOD COUNT 6.73 K/ul (4.2-10.2)
[2017-03-01 20:59] LABS: ABG BASE EXCESS 4 (-2.0-2.0); ABG HCO3 28.2 (22.0-26.0); ABG PCO2 40.8 mmHg (35-45); ABG PH 7.447 (7.35-7.45); ABG TCO2 29 (22.0-28.0)
[2017-03-01 21:12] LABS: ACETAMINOPHEN < 3 ug/ml (10-30); ALANINE AMINOTRANSFERASE 17 U/L (12-78); ALBUMIN 3.5 g/dL (3.4-5.0); ALBUMIN/GLOBULIN RATIO 1.35; ALKALINE PHOSPHATASE 88 U/L (50-136); ANION GAP 13.1; ASPARTATE AMINO TRANSFERASE 12 U/L (15-37); BLOOD UREA NITROGEN 9 mg/dL (7-18); BUN/CREATININE RATIO 9.67; CARBON DIOXIDE 27 mmol/L (21-32); CHLORIDE 107 mmol/L (98-107); CREATININE 0.93 mg/dL (0.60-1.10); GLUCOSE 66 mg/dL (70-100); POTASSIUM 4.1 mmol/L (3.5-5.1); SALICYLATE < 5.0 mg/dL (2.8-20.0); SODIUM 143 mmol/L (136-145); TOTAL PROTEIN 6.1 g/dL (6.4-8.2)
[2017-03-01] MEDS ORDERED: CEREBYX 1,000 MG in SODIUM CHLORIDE 100 ML IV STA (21:17)
[2017-03-01] MEDS ORDERED: LIDOCAINE HCL 1% SDV SUBCUT STA (21:20)
[2017-03-01] MEDS ORDERED: CEREBYX ONE ×2 (21:29→21:30)
--- NOTE | 2017-03-01 21:30 | ED.PDOC ---
Procedures - IV/Art Line Insertion Location: Rt forearm Type of Line: Peripheral IV Invasive Line/IV Catheter Gauge: 22 Number of Attempts: 1 Blood Return Positive: Yes Invasive Line/IV Flushes Without Difficulty: Yes Conscious Sedation - Pre-op Assessment Weight: 177 lb Surgical History: T & A, EAR TUBES IN RIGHT EAR, fx left wrist with surg., both eyes cataract surg. 2014 - Medical History Past Medical History: High Lipids, Seizures, Asthma, Depression, Migraines, Bipolar Other History: DEAF IN RIGHT EAR. SCOLIOSIS CHRONIC BACK PAIN migraines since 17 y/o - Physical Exam Heart Rate/Rhythm: Regular Rhythm, Regular Rate
[2017-03-02] MEDS ORDERED: TORADOL IVP STA (00:28)
[2017-03-02 00:31] LABS: COCAIN SCREEN,URINE NEGATIVE (NEGATIVE)
== END 2017-03-02 00:45 | disposition home or self-care (01) ==
LOC: ED 20:15
DX: G40.909 Epilepsy, unspecified, not intractable, without status epilepticus (principal); F17.210 Nicotine dependence, cigarettes, uncomplicated; Z79.899 Other long term (current) drug therapy
CPT/HCPCS: 36415; 80053; 80185; 80306; 80307; 82803; 85025; 93005; 93010; 96361; 96365; 96375; 99284

== ENCOUNTER 2017-03-04 03:15 | Emergency (ER) | payer OTHER ==
[2017-03-04 03:18] VITALS: BMI 25.4
[2017-03-04 03:26] VITALS: BP 123/75; TEMP 97.5
[2017-03-04] MEDS ORDERED: TORADOL IVP STA (03:55)
[2017-03-04] MEDS ORDERED: SODIUM CHLORIDE 1,000 ML IV STA (03:56)
--- NOTE | 2017-03-04 03:59 | ED.PDOC ---
General ED Provider: Dr. MISAEL KESSLER Chief Complaint: Seizure Stated Complaint: Patient was seen two days ago for seizure breakthrough he had low Dilantin levels and was given additional 1000mg of Cerebrex. Tonight the ems was called to a male with back to back seizures, states patient c/o muscle pain/tightness. Patient states that he does not remember what happened but states legs-thighs are tired and painful. Time Seen by Physician: 03:57 Mode of Arrival: Ambulance Information Source: Patient, EMT Exam Limitations: No limitations Primary Care Provider: JUSTIN GREENFIELD Seen Within Last 72 Hours for Same Complaint By: ED Nursing and Triage Documentation Reviewed and Agree: Yes Neurological Complaint Exam - Seizure Complaint/Exam Onset/Duration: Just prior to arrival Symptoms Are: Still present Timing: Constant Single or Multiple Episode: multiple Failed to Regain Consciousness: No Severity: Self-limited Location: All extremities Character: Generalized Aggravating: Denies: Alcohol ingestion, Drug ingestion, Alcohol withdrawal, Drug withdrawal, Fever, Trauma, Sleep deprivation, Medication non-compliance, Photic stimulation, Breath-holding Alleviating: Reports: Spontaneous resolution Associated Signs and Symptoms: Denies: Anxiety, Emotional distress, Impaired speech, Bladder incontinence, Bowel incontinence, Trauma, Illness, Vomiting, Lethargy, Apnea Related History: Reports: Similar episode SAH Risk Factors: Reports: None Meningitis Risk Factors: Reports: None SDH Risk Factors: Reports: None Related Surgical History: Reports: None Carotid Bruit Present: No Cephalohematoma Present: No Tongue Bitten: No Neck Pain Present: No Nystagmus Present: No Gag Reflex Present: No Speech: Present: Normal Findings Aphasia: Present: None Meningeal Signs Positive: No Focal Weakness: Present: None Focal Sensory Loss: Reports: None [id number]: Normal Findings Pronator Drift: Present: None Romberg Test Positive: No Babinski Sign: Negative Right, Negative Left Heel to Toe Normal: Yes Signs of Injury: Present: Normal findings Differential Diagnoses: Seizure, Seizure Disorder Review of Systems - Review Of Systems Constitutional: Reports: No symptoms Eyes: Reports: No symptoms Ears, Nose, Mouth, Throat: Reports: No symptoms Respiratory: Reports: No symptoms Cardiac: Reports: No symptoms GI: Reports: No symptoms : Reports: No symptoms Musculoskeletal: Reports: Muscle pain Skin: Reports: No symptoms Neurological: Reports: Anxiety Endocrine: Reports: No symptoms Hematologic/Lymphatic: Reports: No symptoms All Other Systems: Reviewed and Negative Past Medical History - Past Medical History Previously Healthy: Yes Endocrine: Reports: None, Dyslipidemia Cardiovascular: Reports: None Respiratory: Reports: Asthma Hematological: Reports: None Gastrointestinal: Reports: None Genitourinary: Reports: None Neuro/Psych: Reports: Migraine, Seizure, Anxiety, Depression Musculoskeletal: Reports: Back Pain Cancer: Reports: None 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 - Surgical History General Surgical History: Reports: Tonsillectomy, Adenoidectomy, Orthopedic ( WRIST SURGERY), Other (EYE, EAR), Unknown - Family History Family History: Reports: Unknown - Social History Smoking Status: Current every day smoker, Heavy tobacco smoker Hx Substance Use: No Alcohol Screening: None - Immunizations Tetanus Shot up to Date: Yes Physical Exam - Physical Exam Appearance: Ill-appearing, Well-nourished Ill-appearing: Mild Pain Distress: Moderate Eyes: CIARA, EOMI, Conjunctiva clear ENT: Ears normal, Nose normal, Oropharynx normal Respiratory: Airway patent, Breath sounds clear, Breath sounds equal, Respirations nonlabored Cardiovascular: RRR, Pulses normal, No rub, No murmur GI/: Soft, Nontender, No masses, Bowel sounds normal, No Organomegaly Musculoskeletal: Normal strength, ROM intact, No edema, No calf tenderness Skin: Warm, Dry, Normal color Neurological: Sensation intact, Motor intact, Reflexes intact, Cranial nerves intact, Alert, Oriented Psychiatric: Affect appropriate, Mood appropriate Re-Evaluation - Re-Evaluation Time of Re-Evaluation: 06:30 Status: Improved Pain Level: better Critical Care Note - Critical Care Note Total Time (mins): 35 Course - Course Hematology/Chemistry: 03/04/17 03:56 03/04/17 04:18 Orders, Labs, Meds: Lab Review 03/04/17 03/04/17 03:56 04:18 WBC 10.83 H RBC 4.41 L Hgb 13.0 L Hct 38.1 L MCV 86.4 MCH 29.5 MCHC 34.1 RDW Coeff of Deisi 13.0 Plt Count 210 Immature Gran % (Auto) 0.3 Neut % (Auto) 62.7 Lymph % (Auto) 27.0 [place] % (Auto) 5.5 Eos % (Auto) 3.8 Baso % (Auto) 0.7 Immature Gran # (Auto) 0.0 Neut # 6.8 Lymph # 2.9 [place] # 0.6 Eos # 0.4 Baso # 0.1 Sodium 144 Potassium 4.2 Chloride 111 H Carbon Dioxide 21 Anion Gap 16.2 BUN 13 Creatinine 0.88 Estimated GFR (MDRD) 96.00 BUN/Creatinine Ratio 14.77 Glucose 92 Calcium 8.7 Total Bilirubin 0.11 AST 21 ALT 20 Alkaline Phosphatase 89 Total Creatine Kinase 101 Total Protein 6.8 Albumin 3.5 Globulin 3.3 Albumin/Globulin Ratio 1.06 Phenytoin 9.90 L Orders Category Date Time Status ED IV/MEDIPORT/POWERPORT .ONCE EMERGENCY 03/04/17 03:59 Active CBC W/ AUTO DIFF Stat LAB 03/04/17 03:56 Completed COMPREHENSIVE METABOLIC PANEL Stat LAB 03/04/17 04:18 Completed CREATINE KINASE Stat LAB 03/04/17 04:18 Completed PHENYTOIN (DILANTIN) Stat LAB 03/04/17 04:18 Completed 0.9 % Sodium Chloride [Saline Flush] MEDS 03/04/17 03:59 Discontinued 1 syr IVF PRN PRN Fosphenytoin Sodium [Cerebyx] MEDS 03/04/17 05:11 Discontinued 1,000 mg .ROUTE .STK-MED ONE Fosphenytoin Sodium [Cerebyx] 1,000 mg MEDS 03/04/17 04:25 Discontinued 0.9 % Sodium Chloride [Sodium Chloride] 100 ml IV ONCE Ketorolac Tromethamine [Toradol] MEDS 03/04/17 03:55 Discontinued 30 mg IVP ONCE STA Sodium Chloride 0.9% [Sodium Chloride] 1,000 ml MEDS 03/04/17 03:56 Discontinued IV BOLUS Medications Discontinued Medications Generic Name Dose Route Start Last Admin Trade Name Freq PRN Reason Stop Dose Admin Sodium Chloride 1,000 mls @ 1,000 mls/hr 03/04/17 03:56 03/04/17 04:29 Sodium Chloride IV 03/04/17 04:55 1,000 mls/hr BOLUS STA Administration Fosphenytoin Sodium 1,000 mg/ 120 mls @ 100 mls/hr 03/04/17 04:25 03/04/17 05 :15 Sodium Chloride IV 03/04/17 05:36 100 mls/hr ONCE STA Administration Ketorolac Tromethamine 30 mg 03/04/17 03:55 03/04/17 04:32 Toradol IVP 03/04/17 03:56 30 mg ONCE STA Administration Sodium Chloride 1 syr 03/04/17 03:59 03/04/17 04:31 Saline Flush IVF 1 syr PRN PRN Administration To flush IV Vital Signs: Temp Pulse Resp BP Pulse Ox 03/04/17 03:18 97.5 F L 66 24 123/75 98 Departure - Departure Time of Disposition: 06:45 Disposition: HOME SELF-CARE Discharge Problem: Seizure Instructions: Recurrent Seizures in Adults (ED) Condition: Fair Pt referred to PMD for follow-up: Yes Additional Instructions: Continue home medications as prescribed except increase Dilantin to 400mg daily Follow up with your neurologist soon. Follow up with PCP in 3 days Allergies/Adverse Reactions: Allergies tramadol Allergy (Severe, Verified 03/04/17 03:30) itching all over dextromethorphan HBr [From NyQuil] Adverse Reaction (Verified 03/04/17 03:30) doxylamine [From NyQuil] Adverse Reaction (Verified 03/04/17 03:30) prochlorperazine edisylate [From Compazine] Adverse Reaction (Verified 03/04/17 03:30) prochlorperazine maleate [From Compazine] Adverse Reaction (Verified 03/04/17 03 :30) Itching pseudoephedrine HCl [From NyQuil] Adverse Reaction (Verified 03/04/17 03:30) Itching Home Medications: Ambulatory Orders Hydrocodone Bit/Acetaminophen [[place] 7.5-325] 1 tab PO TID PRN 05/27/16 Phenytoin Cap [Dilantin] 100 mg PO TID #90 capsule 01/10/17 Levetiracetam [Keppra] 1,000 mg PO BID 03/04/17
[2017-03-04 04:16] LABS: BASOPHILS # (AUTO) 0.1 K/uL (0-0.2); BASOPHILS % (AUTO) 0.7 % (0.0-3.0); EOSINOPHILS # (AUTO) 0.4 K/ul (0.0-0.7); EOSINOPHILS % (AUTO) 3.8 % (0.0-7.0); HEMATOCRIT 38.1 % (42.0-52.0); IMMATURE GRANULOCYTE % (AUTO) 0.3 % (0.0-5.0); LYMPHOCYTES # (AUTO) 2.9 K/uL (0.60-3.4); MEAN CORPUSCULAR HEMOGLOBIN 29.5 pg (27.0-31.0); MEAN CORPUSCULAR HGB CONC 34.1 (31.8-35.4); MEAN CORPUSCULAR VOLUME 86.4 fl (80.0-94.0); MONOCYTES # (AUTO) 0.6 K/uL (0.4-2.0); MONOCYTES % (AUTO) 5.5 (0-10); NEUTROPHILS # (AUTO) 6.8 K/ul (2.0-6.9); NEUTROPHILS % (AUTO) 62.7; PLATELET COUNT 210 10^3/uL (140-440); RED BLOOD COUNT 4.41 10^6/ul (4.70-6.10); WHITE BLOOD COUNT 10.83 K/ul (4.2-10.2)
[2017-03-04] MEDS ORDERED: CEREBYX 1,000 MG in SODIUM CHLORIDE 100 ML IV STA (04:25)
[2017-03-04 04:35] LABS: ALBUMIN 3.5 g/dL (3.4-5.0); ALBUMIN/GLOBULIN RATIO 1.06; ANION GAP 16.2; BILIRUBIN,TOTAL 0.11 mg/dL (0.00-1.20); CALCIUM 8.7 mg/dL (8.2-10.2); POTASSIUM 4.2 mmol/L (3.5-5.1); TOTAL PROTEIN 6.8 g/dL (6.4-8.2)
[2017-03-04 05:00] LABS: BUN/CREATININE RATIO 14.77; CREATININE 0.88 mg/dL (0.60-1.10)
[2017-03-04] MEDS ORDERED: CEREBYX ONE (05:11)
== END 2017-03-04 06:59 | disposition home or self-care (01) ==
LOC: ED 03:15
DX: R56.9 Unspecified convulsions (principal); M79.1 Myalgia; R53.83 Other fatigue; F17.210 Nicotine dependence, cigarettes, uncomplicated; R40.20 Unspecified coma; M79.605 Pain in left leg; M79.604 Pain in right leg
CPT/HCPCS: 36415; 80053; 80185; 82550; 85025; 96361; 96365; 96375; 99283

== ENCOUNTER 2017-03-09 20:12 | Emergency (ER) ==
[2017-03-09 20:24] VITALS: BP 126/78; TEMP 97; BMI 25.1
[2017-03-09] MEDS ORDERED: PHENERGAN 25 MG/ML VIAL IM STA (20:31)
[2017-03-09] MEDS ORDERED: TORADOL IM STA (20:31)
--- NOTE | 2017-03-09 20:35 | ED.PDOC ---
General ED Provider: Dr. MISAEL KESSLER Chief Complaint: Headache Stated Complaint: Patieint has a history of seizures recently seen Neurologist and placed on a New seizure medications Oxabazapine. Has not has any seizrues since. Today he complains of severe headache like his normal migranes. Time Seen by Physician: 20:00 Mode of Arrival: Walk-In Information Source: Patient Primary Care Provider: JUSTIN GREENFIELD Nursing and Triage Documentation Reviewed and Agree: Yes Neurological Complaint Exam - Headache Complaint/Exam Onset: Gradual Duration: 1 day Symptoms Are: Still present Timing: Constant Worst Headache Ever: No Initial Severity: Severe Current Severity: Severe Location: Diffuse Character: Reports: Dull, Throbbing Aggravating: Reports: Bright lights Alleviating: Reports: None Associated Signs and Symptoms: Reports: Nausea. Denies: Dizziness, Vomiting, Sinus pressure, Fever, Neck pain, Neck stiffness, Decreased LOC, Visual changes Related History: Denies: Similar episode, Recent trauma, Remote trauma Related Surgical History: Reports: None SAH Risk Factors: Reports: None Meningitis Risk Factors: Reports: None SDH Risk Factors: Reports: Seizures Temporal Arteritis Risk Factors: Reports: None Normal Head CT Within Last 12 Months: Yes Fundoscopic Exam: Present: Normal Findings Papilledema Present: No Temporal Artery Tenderness: Present: None Sinus Tenderness: Present: None TMJ Tenderness: Present: None Glascow Coma Scale (see protocol): 15 Meningeal Signs Positive: No Pain on Passive Flexion-Positive Kernig's: No ROM Limited In: No Limitiations Focal Weakness: Present: None Focal Sensory Loss: Present: None Gait: Normal Nystagmus Present: No Gag Reflex Present: No [id number]: Normal Findings Romberg Test Positive: No Babinski Sign: Negative Right, Negative Left Heel to Toe Normal: No Differential Diagnoses: Migraine Review of Systems - Review Of Systems Constitutional: Reports: No symptoms Eyes: Reports: Photophobia Ears, Nose, Mouth, Throat: Reports: No symptoms Respiratory: Reports: No symptoms Cardiac: Reports: No symptoms GI: Reports: No symptoms : Reports: No symptoms Musculoskeletal: Reports: No symptoms Skin: Reports: No symptoms Neurological: Reports: Anxiety, Headache Endocrine: Reports: No symptoms Hematologic/Lymphatic: Reports: No symptoms All Other Systems: Reviewed and Negative Past Medical History - Past Medical History Previously Healthy: Yes Endocrine: Reports: None, Dyslipidemia Cardiovascular: Reports: None Respiratory: Reports: Asthma Hematological: Reports: None Gastrointestinal: Reports: None Genitourinary: Reports: None Neuro/Psych: Reports: Migraine, Seizure, Anxiety, Depression Musculoskeletal: Reports: Back Pain Cancer: Reports: None 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 - Surgical History General Surgical History: Reports: Tonsillectomy, Adenoidectomy, Orthopedic ( WRIST SURGERY), Other (EYE, EAR), Unknown - Family History Family History: Reports: Unknown - Social History Smoking Status: Current every day smoker, Heavy tobacco smoker Hx Substance Use: No Alcohol Screening: None - Immunizations Tetanus Shot up to Date: No Physical Exam - Physical Exam Appearance: Ill-appearing Ill-appearing: Mild Pain Distress: Severe Eyes: CIARA, EOMI, Conjunctiva clear ENT: Ears normal, Nose normal, Oropharynx normal Neck: Supple Respiratory: Airway patent, Breath sounds clear, Breath sounds equal, Respirations nonlabored Cardiovascular: RRR, Pulses normal, No rub, No murmur GI/: Soft, Nontender, No masses, Bowel sounds normal, No Organomegaly Musculoskeletal: Normal strength, ROM intact, No edema, No calf tenderness Skin: Warm, Dry, Normal color Neurological: Sensation intact, Motor intact, Reflexes intact, Cranial nerves intact, Alert, Oriented Psychiatric: Affect appropriate, Mood appropriate Critical Care Note - Critical Care Note Total Time (mins): 0 Course - Course Orders, Labs, Meds: Orders Category Date Time Status Ketorolac Tromethamine [Toradol] MEDS 03/09/17 20:31 Stat 60 mg IM ONCE STA Promethazine HCl [Phenergan 25 mg/ml Vial] MEDS 03/09/17 20:31 Stat 25 mg IM ONCE STA Medications Discontinued Medications Generic Name Dose Route Start Last Admin Trade Name Freq PRN Reason Stop Dose Admin Ketorolac Tromethamine 60 mg 03/09/17 20:31 Toradol IM 03/09/17 20:32 ONCE STA Promethazine HCl 25 mg 03/09/17 20:31 Phenergan 25 Mg/Ml Vial IM 03/09/17 20:32 ONCE STA Vital Signs: Temp Pulse Resp BP Pulse Ox 03/09/17 20:19 97 F L 73 18 126/78 96 Departure - Departure Time of Disposition: 21:10 Disposition: HOME SELF-CARE Discharge Problem: Headache Migraine headache Qualifiers: Migraine type: without aura Status migrainosus presence: without status migrainosus Intractability: not intractable Qualified Code(s): G43.009 - Migraine without aura, not intractable, without status migrainosus Instructions: Migraine Headache (ED) Condition: Fair Pt referred to PMD for follow-up: Yes Additional Instructions: continue home medications Follow up with your PCP in 3 days Allergies/Adverse Reactions: Allergies tramadol Allergy (Severe, Verified 03/09/17 20:13) itching all over dextromethorphan HBr [From NyQuil] Adverse Reaction (Verified 03/09/17 20:13) doxylamine [From NyQuil] Adverse Reaction (Verified 03/09/17 20:13) prochlorperazine edisylate [From Compazine] Adverse Reaction (Verified 03/09/17 20:13) prochlorperazine maleate [From Compazine] Adverse Reaction (Verified 03/09/17 20 :13) Itching pseudoephedrine HCl [From NyQuil] Adverse Reaction (Verified 03/09/17 20:13) Itching Home Medications: Ambulatory Orders Hydrocodone Bit/Acetaminophen [[place] 7.5-325] 1 tab PO TID PRN 05/27/16 Phenytoin Cap [Dilantin] 100 mg PO TID #90 capsule 01/10/17 Levetiracetam [Keppra] 1,000 mg PO BID 03/04/17 Disposition Discussed With: Patient
== END 2017-03-09 21:16 | disposition home or self-care (01) ==
LOC: ED 20:12
DX: G43.009 Migraine without aura, not intractable, without status migrainosus (principal); F17.210 Nicotine dependence, cigarettes, uncomplicated
CPT/HCPCS: 96372; 99284

== ENCOUNTER 2017-03-13 19:34 | Emergency (ER) | payer OTHER ==
[2017-03-13 19:35] VITALS: BP 131/79; TEMP 99; BMI 25.4
--- NOTE | 2017-03-13 20:21 | ED.PDOC ---
General ED Provider: Dr. RAJANI SOLANO Chief Complaint: Headache Stated Complaint: Been hurting in the head since today morning 11 am, typical headache,. seeing Dr Dennison. Time Seen by Physician: 20:19 Mode of Arrival: Walk-In Information Source: Patient Primary Care Provider: JUSTIN GREENFIELD Nursing and Triage Documentation Reviewed and Agree: Yes Neurological Complaint Exam - Headache Complaint/Exam Onset: Gradual Symptoms Are: Still present Timing: Constant Episodes Lasting: Hours Worst Headache Ever: No Initial Severity: Moderate Current Severity: Moderate Location: Right, Left, Frontal Character: Reports: Dull, Typical headache, Migraine Aggravating: Reports: Bright lights Alleviating: Reports: None Associated Signs and Symptoms: Denies: Dizziness, Seizure, Nausea, Vomiting, Sinus pressure, Fever, Neck pain, Neck stiffness, Decreased LOC, Visual changes Related History: Reports: Similar episode Related Surgical History: Reports: None SAH Risk Factors: Reports: None Meningitis Risk Factors: Reports: None SDH Risk Factors: Reports: None Normal Head CT Within Last 12 Months: Yes Fundoscopic Exam: Present: Normal Findings Papilledema Present: No Temporal Artery Tenderness: Present: None Sinus Tenderness: Present: None TMJ Tenderness: Present: None Meningeal Signs Positive: No Pain on Passive Flexion-Positive Kernig's: No ROM Limited In: No Limitiations Focal Weakness: Present: None Focal Sensory Loss: Present: None Gait: Normal Nystagmus Present: No Gag Reflex Present: No [id number]: Normal Findings Romberg Test Positive: No Heel to Toe Normal: No Differential Diagnoses: Migraine Review of Systems - Review Of Systems Constitutional: Reports: No symptoms Eyes: Reports: No symptoms Ears, Nose, Mouth, Throat: Reports: No symptoms Respiratory: Reports: No symptoms Cardiac: Reports: No symptoms GI: Reports: No symptoms : Reports: No symptoms Musculoskeletal: Reports: No symptoms Skin: Reports: No symptoms Neurological: Reports: Headache Endocrine: Reports: No symptoms Hematologic/Lymphatic: Reports: No symptoms All Other Systems: Reviewed and Negative Past Medical History - Past Medical History Previously Healthy: Yes Endocrine: Reports: None, Dyslipidemia Cardiovascular: Reports: None Respiratory: Reports: Asthma Hematological: Reports: None Gastrointestinal: Reports: None Genitourinary: Reports: None Neuro/Psych: Reports: Migraine, Seizure, Anxiety, Depression Musculoskeletal: Reports: Back Pain Cancer: Reports: None 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 - Surgical History General Surgical History: Reports: Tonsillectomy, Adenoidectomy, Orthopedic ( WRIST SURGERY), Other (EYE, EAR), Unknown - Family History Family History: Reports: Unknown - Social History Smoking Status: Current every day smoker, Heavy tobacco smoker Smoking Cessation Counseling Time: > 10 min Hx Substance Use: No Alcohol Screening: None Physical Exam - Physical Exam Appearance: Ill-appearing, No pain distress, Well-nourished, Obese Pain Distress: Moderate Eyes: CIARA, EOMI, Conjunctiva clear ENT: Ears normal, Nose normal, Oropharynx normal Respiratory: Airway patent, Breath sounds clear, Breath sounds equal, Respirations nonlabored Cardiovascular: RRR, Pulses normal, No rub, No murmur GI/: Soft, Nontender, No masses, Bowel sounds normal, No Organomegaly Musculoskeletal: Normal strength, ROM intact, No edema, No calf tenderness Skin: Warm, Dry, Normal color Neurological: Sensation intact, Motor intact, Reflexes intact, Cranial nerves intact, Alert, Oriented Psychiatric: Affect appropriate, Mood appropriate Critical Care Note - Critical Care Note Total Time (mins): 0 Course - Course Orders, Labs, Meds: Orders Category Date Time Status Ketorolac Tromethamine [Toradol] MEDS 03/13/17 20:19 Stat 60 mg IM ONCE STA Promethazine HCl [Phenergan 25 mg/ml Vial] MEDS 03/13/17 20:19 Stat 25 mg IM ONCE STA Medications Generic Name Dose Route Start Last Admin Trade Name Freq PRN Reason Stop Dose Admin Ketorolac Tromethamine 60 mg 03/13/17 20:19 Toradol IM 03/13/17 20:20 ONCE STA Promethazine HCl 25 mg 03/13/17 20:19 Phenergan 25 Mg/Ml Vial IM 03/13/17 20:20 ONCE STA Vital Signs: Temp Pulse Resp BP Pulse Ox 03/13/17 19:34 99.0 F 99 H 16 131/79 96 Departure - Departure Time of Disposition: 20:23 Disposition: HOME SELF-CARE Discharge Problem: Migraine headache Qualifiers: Migraine type: without aura Status migrainosus presence: without status migrainosus Intractability: not intractable Qualified Code(s): G43.009 - Migraine without aura, not intractable, without status migrainosus Instructions: Migraine Headache (ED) Condition: Good Pt referred to PMD for follow-up: Yes Additional Instructions: keep f/u with Dr Dennison, Allergies/Adverse Reactions: Allergies tramadol Allergy (Severe, Verified 03/13/17 19:36) itching all over dextromethorphan HBr [From NyQuil] Adverse Reaction (Verified 03/13/17 19:36) doxylamine [From NyQuil] Adverse Reaction (Verified 03/13/17 19:36) prochlorperazine edisylate [From Compazine] Adverse Reaction (Verified 03/13/17 19:36) prochlorperazine maleate [From Compazine] Adverse Reaction (Verified 03/13/17 19 :36) Itching pseudoephedrine HCl [From NyQuil] Adverse Reaction (Verified 03/13/17 19:36) Itching Home Medications: Ambulatory Orders Hydrocodone Bit/Acetaminophen [[place] 7.5-325] 1 tab PO TID PRN 05/27/16 Oxcarbazepine [Trileptal] 300 mg PO BID 03/13/17 Disposition Discussed With: Patient
[2017-03-13] MEDS: PHENERGAN 25 MG/ML VIAL IM STA (20:27)
[2017-03-13] MEDS: TORADOL IM STA (20:28)
== END 2017-03-13 20:48 | disposition home or self-care (01) ==
LOC: ED 19:34
DX: G43.009 Migraine without aura, not intractable, without status migrainosus (principal); F17.210 Nicotine dependence, cigarettes, uncomplicated
CPT/HCPCS: 96372; 99282

== ENCOUNTER 2017-03-27 00:37 | Emergency (ER) ==
[2017-03-27 00:37] VITALS: BMI 25.4
[2017-03-27 00:44] VITALS: BP 133/82; TEMP 98
[2017-03-27 01:24] LABS: BASOPHILS # (AUTO) 0.1 K/uL (0-0.2); BASOPHILS % (AUTO) 1.3 % (0.0-3.0); EOSINOPHILS # (AUTO) 0.4 K/ul (0.0-0.7); EOSINOPHILS % (AUTO) 4.7 % (0.0-7.0); HEMATOCRIT 39.1 % (42.0-52.0); HEMOGLOBIN 13.5 g/dl (14.0-18.0); IMMATURE GRANULOCYTE % (AUTO) 0.8 % (0.0-5.0); LYMPHOCYTES # (AUTO) 2.9 K/uL (0.60-3.4); LYMPHOCYTES % (AUTO) 38.2 (10.0-50.0); MEAN CORPUSCULAR HEMOGLOBIN 29.6 pg (27.0-31.0); MEAN CORPUSCULAR HGB CONC 34.5 (31.8-35.4); MEAN CORPUSCULAR VOLUME 85.7 fl (80.0-94.0); MONOCYTES # (AUTO) 0.7 K/uL (0.4-2.0); MONOCYTES % (AUTO) 9.6 (0-10); NEUTROPHILS # (AUTO) 3.5 K/ul (2.0-6.9); NEUTROPHILS % (AUTO) 45.4; PLATELET COUNT 221 10^3/uL (140-440); RED BLOOD COUNT 4.56 10^6/ul (4.70-6.10); WHITE BLOOD COUNT 7.62 K/ul (4.2-10.2)
[2017-03-27 01:26] LABS: ALBUMIN 3.6 g/dL (3.4-5.0); ALBUMIN/GLOBULIN RATIO 1.16; ANION GAP 15.7; BILIRUBIN,TOTAL 0.24 mg/dL (0.00-1.20); BUN/CREATININE RATIO 17.64; CALCIUM 8.5 mg/dL (8.2-10.2); CREATININE 0.85 mg/dL (0.60-1.10); MAGNESIUM 2.1 mg/dL (1.7-2.2); POTASSIUM 3.7 mmol/L (3.5-5.1); TOTAL PROTEIN 6.7 g/dL (6.4-8.2)
--- NOTE | 2017-03-27 01:28 | CT ---
EXAM: CT head without contrast. HISTORY: Fall. PROCEDURE: Contiguous axial CT images of the head without contrast with coronal and sagittal reforma ts. FINDINGS: The ventricles and basal cisterns are normal in size and configuration. No evidence of ma ss or midline shift. No intracranial hemorrhage or evidence of large vessel infarct. No extra-axial fluid collection. There is mucosal thickening in the paranasal sinuses. The mastoid air cells are w ell-aerated. No skull fracture. Impression: Negative CT of the head. Paranasal sinusitis.
--- NOTE | 2017-03-27 01:30 | CT ---
EXAM: CT of the face and orbits without contrast. HISTORY: Fall. PROCEDURE: Contiguous axial CT images of the face and orbits without contrast with coronal and sagit noemí reformats. FINDINGS: The bony structures are intact without evidence of fracture.. The temporomandibular joint s are maintained. The orbits are normal in appearance. The globes are intact and symmetric. There i s mucosal thickening in the paranasal sinuses. Impression: No evidence of fracture. Paranasal sinusitis.
--- NOTE | 2017-03-27 01:38 | CT ---
EXAM: CT cervical spine without intravenous contrast 03/27/2017. Sagittal and coronal reformatted i mages obtained HISTORY: Fall COMPARISON: 02/26/2017 FINDINGS: Normal anatomic alignment is maintained. Vertebral bodies appear intact without evidence of fracture. The facet joints align normally. The prevertebral soft tissues appear within normal limits. There is no evidence of acute fracture or subluxation at any level. IMPRESSION: No acute osseous abnormality of the cervical spine.
[2017-03-27] MEDS ORDERED: ZOFRAN 4 MG/2 ML IM STA (04:41)
[2017-03-27] MEDS ORDERED: TORADOL IM STA (04:41)
--- NOTE | 2017-03-27 06:07 | ED.PDOC ---
General ED Provider: Dr. TY STALLINGS-ER Chief Complaint: Seizure Stated Complaint: hes been falling lately-- Time Seen by Physician: 00:40 Mode of Arrival: Ambulance Information Source: Patient, Family Exam Limitations: No limitations Primary Care Provider: JUSTIN GREENFIELD Nursing and Triage Documentation Reviewed and Agree: Yes Neurological Complaint Exam - Seizure Complaint/Exam Onset/Duration: 45 min Symptoms Are: Still present Timing: Constant Single or Multiple Episode: 1 Failed to Regain Consciousness: No Severity: Self-limited Location: All extremities Character: Generalized, Tonic-clonic Associated Signs and Symptoms: Reports: Trauma. Denies: Anxiety, Emotional distress, Impaired speech, Bladder incontinence, Bowel incontinence, Illness, Vomiting, Lethargy, Apnea Meningitis Risk Factors: Reports: None SDH Risk Factors: Reports: Male, Seizures Related Surgical History: Reports: None Carotid Bruit Present: No Cephalohematoma Present: No Tongue Bitten: No Glascow Coma Scale (see protocol): 15 Nystagmus Present: No Gag Reflex Present: Yes Speech: Present: Normal Findings Aphasia: Present: None Focal Weakness: Present: None Focal Sensory Loss: Reports: None Gait: Normal [id number]: Normal Findings Pronator Drift: Present: None Romberg Test Positive: No Babinski Sign: Negative Right, Negative Left Heel to Toe Normal: Yes Signs of Injury: Present: Contusion Differential Diagnoses: Drug Toxicity, Metabolic Disorder, Seizure Disorder Review of Systems - Review Of Systems Constitutional: Reports: No symptoms Eyes: Reports: No symptoms Ears, Nose, Mouth, Throat: Reports: No symptoms Respiratory: Reports: No symptoms Cardiac: Reports: No symptoms GI: Reports: No symptoms : Reports: No symptoms Musculoskeletal: Reports: No symptoms Skin: Reports: No symptoms Neurological: Reports: Headache, Tonic-Clonic seizures Endocrine: Reports: No symptoms Hematologic/Lymphatic: Reports: No symptoms All Other Systems: Reviewed and Negative Past Medical History - Past Medical History Previously Healthy: Yes Endocrine: Reports: None, Dyslipidemia Cardiovascular: Reports: None Respiratory: Reports: Asthma Hematological: Reports: None Gastrointestinal: Reports: None Genitourinary: Reports: None Neuro/Psych: Reports: Migraine, Seizure, Anxiety, Depression Musculoskeletal: Reports: Back Pain Cancer: Reports: None 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 - Surgical History General Surgical History: Reports: Tonsillectomy, Adenoidectomy, Orthopedic ( WRIST SURGERY), Other (EYE, EAR), Unknown - Family History Family History: Reports: Unknown - Social History Smoking Status: Current every day smoker, Heavy tobacco smoker Hx Substance Use: No Alcohol Screening: None - Immunizations Tetanus Shot up to Date: (UNKNOWN) Physical Exam - Physical Exam Appearance: Well-appearing, No pain distress, Well-nourished Pain Distress: Mild Eyes: CIARA, EOMI, Conjunctiva clear ENT: Ears normal, Nose normal, Oropharynx normal Neck: Supple Respiratory: Airway patent, Breath sounds clear, Breath sounds equal, Respirations nonlabored Cardiovascular: RRR, Pulses normal, No rub, No murmur GI/: Soft, Nontender, No masses, Bowel sounds normal, No Organomegaly Musculoskeletal: Normal strength Skin: Warm, Dry, Normal color Neurological: Sensation intact Psychiatric: Affect appropriate, Mood appropriate Interpretation - Radiology Interpretation Radiology Interpretation By: Radiologist Radiology Results: Negative Exam Interpreted: CT Scan Critical Care Note - Critical Care Note Total Time (mins): 15 Course - Course Hematology/Chemistry: 03/27/17 01:07 03/27/17 01:07 Orders, Labs, Meds: Lab Review 03/27/17 03/27/17 01:07 01:07 WBC 7.62 RBC 4.56 L Hgb 13.5 L Hct 39.1 L MCV 85.7 MCH 29.6 MCHC 34.5 RDW Coeff of Deisi 13.4 Plt Count 221 Immature Gran % (Auto) 0.8 Neut % (Auto) 45.4 Lymph % (Auto) 38.2 [place] % (Auto) 9.6 Eos % (Auto) 4.7 Baso % (Auto) 1.3 Immature Gran # (Auto) 0.1 Neut # 3.5 Lymph # 2.9 [place] # 0.7 Eos # 0.4 Baso # 0.1 Sodium 141 Potassium 3.7 Chloride 108 H Carbon Dioxide 21 Anion Gap 15.7 BUN 15 Creatinine 0.85 Estimated GFR (MDRD) 100.00 BUN/Creatinine Ratio 17.64 Glucose 125 H Calcium 8.5 Magnesium 2.1 Total Bilirubin 0.24 AST 23 ALT 49 Alkaline Phosphatase 84 Total Protein 6.7 Albumin 3.6 Globulin 3.1 Albumin/Globulin Ratio 1.16 Orders Category Date Time Status CBC W/ AUTO DIFF Stat LAB 03/27/17 01:07 Completed COMPREHENSIVE METABOLIC PANEL Stat LAB 03/27/17 01:07 Completed MAGNESIUM Stat LAB 03/27/17 01:07 Completed Ketorolac Tromethamine [Toradol] MEDS 03/27/17 04:41 Discontinued 60 mg IM ONCE STA Ondansetron HCl/Pf [Zofran 4 mg/2 ml] MEDS 03/27/17 04:41 Discontinued 4 mg IM ONCE STA CT CERVICAL SPINE W/O CONTRAST Stat RADS 03/27/17 00:[address] HEAD W/O CONTRAST Stat RADS 03/27/17 00:[address] MAXILLOFACIAL W/O CONTRAST Stat RADS 03/27/17 00:57 Completed Medications Discontinued Medications Generic Name Dose Route Start Last Admin Trade Name Freq PRN Reason Stop Dose Admin Ketorolac Tromethamine 60 mg 03/27/17 04:41 03/27/17 04:51 Toradol IM 03/27/17 04:42 60 mg ONCE STA Administration Ondansetron HCl 4 mg 03/27/17 04:41 03/27/17 04:51 Zofran 4 Mg/2 Ml IM 03/27/17 04:42 4 mg ONCE STA Administration Vital Signs: Temp Pulse Resp BP Pulse Ox 03/27/17 00:38 98 F 81 18 133/82 96 Departure - Departure Time of Disposition: 06:08 Disposition: TSF SHORT-TRM HOSP Discharge Problem: Seizure Instructions: Epilepsy (ED) Condition: Good Pt referred to PMD for follow-up: Yes Allergies/Adverse Reactions: Allergies tramadol Allergy (Severe, Verified 03/27/17 00:43) itching all over dextromethorphan HBr [From NyQuil] Adverse Reaction (Verified 03/27/17 00:43) doxylamine [From NyQuil] Adverse Reaction (Verified 03/27/17 00:43) prochlorperazine edisylate [From Compazine] Adverse Reaction (Verified 03/27/17 00:43) prochlorperazine maleate [From Compazine] Adverse Reaction (Verified 03/27/17 00 :43) Itching pseudoephedrine HCl [From NyQuil] Adverse Reaction (Verified 03/27/17 00:43) Itching Home Medications: Ambulatory Orders Hydrocodone Bit/Acetaminophen [[place] 7.5-325] 1 tab PO TID PRN 05/27/16 Oxcarbazepine [Trileptal] 300 mg PO BID 03/13/17 Transfer Form Completed: Yes Disposition Discussed With: Patient, Family
== END 2017-03-27 06:42 | disposition short-term general hospital (02) ==
LOC: ED 00:37
DX: R56.9 Unspecified convulsions (principal); R29.6 Repeated falls; F17.210 Nicotine dependence, cigarettes, uncomplicated
CPT/HCPCS: 36415; 80053; 83735; 85025; 96372; 99285

== ENCOUNTER 2017-11-26 22:11 | Emergency (ER) ==
[2017-11-26] MEDS ORDERED: DILAUDID 2 MG/ML SYRINGE IM STA (22:38)
[2017-11-26] MEDS ORDERED: TORADOL IM STA (22:38)
[2017-11-26] MEDS ORDERED: ZOFRAN 4 MG/2 ML IM STA (22:38)
[2017-11-26 22:40] VITALS: BP 132/79; TEMP 98.6; BMI 25.0
[2017-11-26] MEDS ORDERED: TORADOL ONE (22:42)
[2017-11-26] MEDS ORDERED: DILAUDID 2 MG/ML SYRINGE ONE (22:42)
[2017-11-26] MEDS ORDERED: ZOFRAN 4 MG/2 ML ONE (22:42)
--- NOTE | 2017-11-26 23:17 | CT ---
EXAM: CT scan maxillofacial HISTORY: Right eye pain COMPARISON: None. FINDINGS: Contiguous axial images obtained through the maxillofacial region without contrast utilizi ng 3-mm collimation. Sagittal and coronal reconstructions were imaged and reviewed.. The orbital st ructures are intact. Multiple air cells are opacified in the bilateral ethmoid sinus. Minimal mucop eriosteal thickening is seen in the bilateral maxillary sinuses. There is deviation of the nasal sept um to the left of midline with a spur projecting to the left. The maxilla is edentulous. IMPRESSION: No orbital abnormalities identified. Bilateral ethmoid and maxillary sinusitis.
--- NOTE | 2017-11-26 23:39 | ED.PDOC ---
General ED Provider: Dr. TY STALLINGS-ER Chief Complaint: Eye Problem Stated Complaint: my eye has pressure on it Time Seen by Physician: 22:20 Mode of Arrival: Walk-In Information Source: Patient, Family Exam Limitations: No limitations Primary Care Provider: JUSTIN GREENFIELD Nursing and Triage Documentation Reviewed and Agree: Yes Does patient meet sepsis criteria?: No If yes, has appropriate treatment been initiated?: No System Inflammatory Response Syndrome: Not Applicable Sepsis Protocol: For patient's 13 years and over: Temp is 96.8 and below OR 101 and greater Pulse >90 BPM Resp >20/minute Acutely Altered Mental Status Are patient's symptoms suggestive of a new infection, such as: -Pneumonia -Skin, Soft Tissue -Endocarditis -UTI -Bone, Joint Infection -Implantable Device -Acute Abdominal Infection -Wound Infection -Meningitis -Blood Stream Catheter Infection -Unknown EENT Complaint Exam - Eye Complaint/Exam Onset/Duration: 4 weeks Symptoms Are: Still present Timing: Constant Initial Severity: Mild Current Severity: Moderate Location: Discreet, Right Character: Reports: Dull, Throbbing Aggravating: Reports: None Alleviating: Reports: Darkness Associated Signs and Symptoms: Reports: Vision impairment. Denies: Photophobia , Clear drainage, Purulent drainage, Fever, Swelling Penetrating Injury Risk Factors: None Globe Rupture Risk Factors: None Acute Glaucoma Risk Factors: None Optic Artery Occlusion Risk Factors: None Lid Findings: Normal Corneal Findings: Clear Fundi: Normal Slit Lamp Used: No Differential Diagnoses: Glaucoma Review of Systems - Review Of Systems Constitutional: Reports: No symptoms Eyes: Reports: Pain Ears, Nose, Mouth, Throat: Reports: No symptoms Respiratory: Reports: No symptoms Cardiac: Reports: No symptoms GI: Reports: No symptoms : Reports: No symptoms Musculoskeletal: Reports: No symptoms Skin: Reports: No symptoms Neurological: Reports: No symptoms Endocrine: Reports: No symptoms Hematologic/Lymphatic: Reports: No symptoms All Other Systems: Reviewed and Negative Past Medical History - Past Medical History Previously Healthy: Yes Endocrine: Reports: None, Dyslipidemia Cardiovascular: Reports: None Respiratory: Reports: Asthma Hematological: Reports: None Gastrointestinal: Reports: None Genitourinary: Reports: None Neuro/Psych: Reports: Migraine, Seizure, Anxiety, Depression Musculoskeletal: Reports: Back Pain Cancer: Reports: None 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 - Surgical History General Surgical History: Reports: Tonsillectomy, Adenoidectomy, Orthopedic ( WRIST SURGERY), Other (EYE, EAR), Unknown - Family History Family History: Reports: Unknown - Social History Smoking Status: Current every day smoker, Heavy tobacco smoker Hx Substance Use: No Alcohol Screening: None - Immunizations Tetanus Shot up to Date: Yes Physical Exam - Physical Exam Appearance: Well-appearing Pain Distress: Mild Eyes: CIARA, EOMI, Conjunctiva clear ENT: Ears normal, Nose normal, Oropharynx normal Neck: Supple Respiratory: Airway patent, Breath sounds clear, Breath sounds equal, Respirations nonlabored Cardiovascular: RRR, Pulses normal, No rub, No murmur GI/: Soft, Nontender, No masses, Bowel sounds normal, No Organomegaly Musculoskeletal: Normal strength, ROM intact, No edema, No calf tenderness Skin: Warm, Dry, Normal color Neurological: Sensation intact, Motor intact, Reflexes intact, Cranial nerves intact, Alert, Oriented Psychiatric: Affect appropriate, Mood appropriate Interpretation - Radiology Interpretation Radiology Interpretation By: Radiologist Radiology Results: Negative Exam Interpreted: CT Scan Re-Evaluation - Re-Evaluation Time of Re-Evaluation: 23:39 Status: Improved Vital Signs Stable: Yes Pain Level: 1 Appearance: NAD Lungs: Clear Skin: Warm and Dry Neuro: Alert and Oriented X3 CV: RRR Critical Care Note - Critical Care Note Total Time (mins): 0 Course - Course Orders, Labs, Meds: Orders Category Date Time Status Hydromorphone HCl/Pf [Dilaudid 2 mg/ml Syringe] MEDS 11/26/17 22:42 Discontinued 2 mg .ROUTE .STK-MED ONE Hydromorphone HCl/Pf [Dilaudid 2 mg/ml Syringe] MEDS 11/26/17 22:38 Discontinued 2 mg IM ONCE STA Ketorolac Tromethamine [Toradol] MEDS 11/26/17 22:42 Discontinued 60 mg .ROUTE .STK-MED ONE Ketorolac Tromethamine [Toradol] MEDS 11/26/17 22:38 Discontinued 60 mg IM ONCE STA Ondansetron HCl/Pf [Zofran 4 mg/2 ml] MEDS 11/26/17 22:42 Discontinued 4 mg .ROUTE .STK-MED ONE Ondansetron HCl/Pf [Zofran 4 mg/2 ml] MEDS 11/26/17 22:38 Discontinued 4 mg IM ONCE STA CT MAXILLOFACIAL W/O CONTRAST Stat RADS 11/26/17 22:44 Completed Medications Discontinued Medications Generic Name Dose Route Start Last Admin Trade Name Garrett PRN Reason Stop Dose Admin Hydromorphone HCl 2 mg 11/26/17 22:38 11/26/17 22:51 Dilaudid 2 Mg/Ml Syringe IM 11/26/17 22:39 Not Given ONCE STA Ketorolac Tromethamine 60 mg 11/26/17 22:38 11/26/17 22:52 Toradol IM 11/26/17 22:39 Not Given ONCE STA Ondansetron HCl 4 mg 11/26/17 22:38 11/26/17 22:52 Zofran 4 Mg/2 Ml IM 11/26/17 22:39 Not Given ONCE STA Vital Signs: Temp Pulse Resp BP Pulse Ox 11/26/17 22:15 98.6 F 80 20 132/79 97 Departure - Departure Time of Disposition: 23:39 Disposition: HOME SELF-CARE Discharge Problem: Eye pain Qualifiers: Laterality: right Qualified Code(s): H57.11 - Ocular pain, right eye Instructions: Eye Pain (ED) Condition: Good Pt referred to PMD for follow-up: No IPMP verified?: No Additional Instructions: see your pcp tomorrow and get referral to eye doctor tomorrow Allergies/Adverse Reactions: Allergies tramadol Allergy (Severe, Verified 03/27/17 00:43) itching all over dextromethorphan HBr [From NyQuil] Adverse Reaction (Verified 03/27/17 00:43) doxylamine [From NyQuil] Adverse Reaction (Verified 03/27/17 00:43) prochlorperazine edisylate [From Compazine] Adverse Reaction (Verified 03/27/17 00:43) prochlorperazine maleate [From Compazine] Adverse Reaction (Verified 03/27/17 00 :43) Itching pseudoephedrine HCl [From NyQuil] Adverse Reaction (Verified 03/27/17 00:43) Itching Home Medications: Ambulatory Orders Hydrocodone Bit/Acetaminophen [[place] 7.5-325] 1 tab PO TID PRN 05/27/16 Oxcarbazepine [Trileptal] 300 mg PO BID 03/13/17 Disposition Discussed With: Patient, Family
== END 2017-11-26 23:45 | disposition home or self-care (01) ==
LOC: ED 22:11
DX: H57.11 Ocular pain, right eye (principal); F17.210 Nicotine dependence, cigarettes, uncomplicated
CPT/HCPCS: 96372; 99283

== ENCOUNTER 2017-12-24 14:23 | Emergency (ER) ==
[2017-12-24 14:30] VITALS: BP 157/103; TEMP 99.2; BMI 25.0
[2017-12-24] MEDS ORDERED: PHENERGAN 25 MG/ML VIAL IM STA (14:36)
[2017-12-24] MEDS ORDERED: DILAUDID 2 MG/ML SYRINGE IM STA (14:36)
--- NOTE | 2017-12-24 14:39 | ED.PDOC ---
General ED Provider: Dr. TY STALLINGS-ER Chief Complaint: Headache Stated Complaint: jesus manuel got a migraine Time Seen by Physician: 14:37 Mode of Arrival: Walk-In Information Source: Patient Exam Limitations: No limitations Primary Care Provider: JUSTIN GREENFIELD Nursing and Triage Documentation Reviewed and Agree: Yes Does patient meet sepsis criteria?: No System Inflammatory Response Syndrome: Not Applicable Sepsis Protocol: For patient's 13 years and over: Temp is 96.8 and below OR 101 and greater Pulse >90 BPM Resp >20/minute Acutely Altered Mental Status Are patient's symptoms suggestive of a new infection, such as: -Pneumonia -Skin, Soft Tissue -Endocarditis -UTI -Bone, Joint Infection -Implantable Device -Acute Abdominal Infection -Wound Infection -Meningitis -Blood Stream Catheter Infection -Unknown Neurological Complaint Exam - Headache Complaint/Exam Onset: Gradual Duration: several hours Symptoms Are: Still present Timing: Constant Worst Headache Ever: No Initial Severity: Mild Current Severity: Moderate Location: Diffuse Character: Reports: Dull, Throbbing, Pressure, Typical headache, Migraine Aggravating: Reports: Bright lights Alleviating: Reports: None Associated Signs and Symptoms: Reports: Nausea. Denies: Dizziness, Seizure, Vomiting, Sinus pressure, Fever, Neck pain, Neck stiffness, Decreased LOC, Visual changes Related History: Reports: Similar episode. Denies: Recent trauma, Remote trauma Related Surgical History: Reports: None SAH Risk Factors: Reports: None Meningitis Risk Factors: Reports: None SDH Risk Factors: Reports: None Temporal Arteritis Risk Factors: Reports: Normal Head CT Within Last 12 Months: Yes Fundoscopic Exam: Present: Normal Findings Papilledema Present: No Temporal Artery Tenderness: Present: None Sinus Tenderness: Present: None TMJ Tenderness: Present: None Glascow Coma Scale (see protocol): 15 Meningeal Signs Positive: No Pain on Passive Flexion-Positive Kernig's: No ROM Limited In: No Limitiations Focal Weakness: Present: None Focal Sensory Loss: Present: None Gait: Normal Nystagmus Present: No Gag Reflex Present: No [id number]: Normal Findings Romberg Test Positive: No Babinski Sign: Negative Right, Negative Left Heel to Toe Normal: Yes Differential Diagnoses: Migraine Review of Systems - Review Of Systems Constitutional: Reports: No symptoms Eyes: Reports: No symptoms Ears, Nose, Mouth, Throat: Reports: No symptoms Respiratory: Reports: No symptoms Cardiac: Reports: No symptoms GI: Reports: Nausea : Reports: No symptoms Musculoskeletal: Reports: No symptoms Skin: Reports: No symptoms Neurological: Reports: Headache Endocrine: Reports: No symptoms Hematologic/Lymphatic: Reports: No symptoms All Other Systems: Reviewed and Negative Past Medical History - Past Medical History Previously Healthy: Yes Endocrine: Reports: None, Dyslipidemia Cardiovascular: Reports: None Respiratory: Reports: Asthma Hematological: Reports: None Gastrointestinal: Reports: None Genitourinary: Reports: None Neuro/Psych: Reports: Migraine, Seizure, Anxiety, Depression Musculoskeletal: Reports: Back Pain Cancer: Reports: None 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 - Surgical History General Surgical History: Reports: Tonsillectomy, Adenoidectomy, Orthopedic ( WRIST SURGERY), Other (EYE, EAR), Unknown - Family History Family History: Reports: Unknown - Social History Smoking Status: Current every day smoker, Heavy tobacco smoker Hx Substance Use: No Alcohol Screening: None - Immunizations Tetanus Shot up to Date: Yes Physical Exam - Physical Exam Appearance: Well-appearing, No pain distress, Well-nourished Pain Distress: Moderate Eyes: CIARA ENT: Ears normal, Nose normal, Oropharynx normal Neck: Supple Respiratory: Airway patent Cardiovascular: RRR, Pulses normal, No rub, No murmur GI/: Soft Musculoskeletal: Normal strength, ROM intact, No edema, No calf tenderness Skin: Warm Neurological: Sensation intact Psychiatric: Affect appropriate Re-Evaluation - Re-Evaluation Time of Re-Evaluation: 15:15 Status: Improved Vital Signs Stable: Yes Pain Level: 1 Appearance: NAD Lungs: Clear Skin: Warm and Dry Neuro: Alert and Oriented X3 CV: RRR Critical Care Note - Critical Care Note Total Time (mins): 0 Course - Course Orders, Labs, Meds: Orders Category Date Time Status Hydromorphone HCl/Pf [Dilaudid 2 mg/ml Syringe] MEDS 12/24/17 14:36 Stat 2 mg IM ONCE STA Promethazine HCl [Phenergan 25 mg/ml Vial] MEDS 12/24/17 14:36 Stat 25 mg IM ONCE STA Medications Generic Name Dose Route Start Last Admin Trade Name Freq PRN Reason Stop Dose Admin Hydromorphone HCl 2 mg 12/24/17 14:36 Dilaudid 2 Mg/Ml Syringe IM 12/24/17 14:37 ONCE STA Promethazine HCl 25 mg 12/24/17 14:36 Phenergan 25 Mg/Ml Vial IM 12/24/17 14:37 ONCE STA Vital Signs: Temp Pulse Resp BP Pulse Ox 12/24/17 14:25 99.2 F 79 16 157/103 H 97 Departure - Departure Time of Disposition: 14:39 Disposition: HOME SELF-CARE Discharge Problem: Migraine headache Qualifiers: Migraine type: unspecified Status migrainosus presence: without status migrainosus Intractability: not intractable Qualified Code(s): G43.909 - Migraine, unspecified, not intractable, without status migrainosus Instructions: Migraine Headache (ED) Condition: Good Pt referred to PMD for follow-up: Yes IPMP verified?: No Additional Instructions: f/u with pcp Allergies/Adverse Reactions: Allergies tramadol Allergy (Severe, Verified 03/27/17 00:43) itching all over dextromethorphan HBr [From NyQuil] Adverse Reaction (Verified 03/27/17 00:43) doxylamine [From NyQuil] Adverse Reaction (Verified 03/27/17 00:43) ketorolac [From Toradol] Adverse Reaction (Verified 12/24/17 14:32) prochlorperazine edisylate [From Compazine] Adverse Reaction (Verified 03/27/17 00:43) prochlorperazine maleate [From Compazine] Adverse Reaction (Verified 03/27/17 00 :43) Itching pseudoephedrine HCl [From NyQuil] Adverse Reaction (Verified 03/27/17 00:43) Itching Home Medications: Ambulatory Orders Hydrocodone Bit/Acetaminophen [[place] 7.5-325] 1 tab PO TID PRN 05/27/16 Oxcarbazepine [Trileptal] 300 mg PO BID 03/13/17 Transfer Form Completed: No Disposition Discussed With: Patient
== END 2017-12-24 15:31 | disposition home or self-care (01) ==
LOC: ED 14:23
DX: G43.909 Migraine, unspecified, not intractable, without status migrainosus (principal); F17.210 Nicotine dependence, cigarettes, uncomplicated
CPT/HCPCS: 96372; 99283

== ENCOUNTER 2017-12-25 17:01 | Inpatient (IN) ==
--- NOTE | 2017-12-25 18:05 | ED.PDOC ---
General ED Provider: Dr. JENNIFER NASH Chief Complaint: Seizure Stated Complaint: seizure Time Seen by Physician: 17:00 (SEEN IN THE ED 1 DAY AGO) Mode of Arrival: Wheelchair Information Source: Patient, Family Exam Limitations: No limitations Primary Care Provider: JUSTIN GREENFIELD Nursing and Triage Documentation Reviewed and Agree: Yes Does patient meet sepsis criteria?: No If yes, has appropriate treatment been initiated?: No System Inflammatory Response Syndrome: Not Applicable Sepsis Protocol: For patient's 13 years and over: Temp is 96.8 and below OR 101 and greater Pulse >90 BPM Resp >20/minute Acutely Altered Mental Status Are patient's symptoms suggestive of a new infection, such as: -Pneumonia -Skin, Soft Tissue -Endocarditis -UTI -Bone, Joint Infection -Implantable Device -Acute Abdominal Infection -Wound Infection -Meningitis -Blood Stream Catheter Infection -Unknown Neurological Complaint Exam - Headache Complaint/Exam Onset: Gradual Duration: today Symptoms Are: Still present Timing: Intermittent Episodes Lasting: Hours Worst Headache Ever: No Initial Severity: Mild Current Severity: Mild Location: Diffuse Character: Reports: Dull Alleviating: Reports: None Associated Signs and Symptoms: Reports: Seizure. Denies: Dizziness, Nausea, Vomiting, Sinus pressure, Fever, Neck pain, Neck stiffness, Decreased LOC, Visual changes Related History: Reports: Similar episode Related Surgical History: Reports: None SAH Risk Factors: Reports: None Meningitis Risk Factors: Reports: None SDH Risk Factors: Reports: Male, Seizures Temporal Arteritis Risk Factors: Reports: None Normal Head CT Within Last 12 Months: Yes Fundoscopic Exam: Present: Normal Findings Papilledema Present: No Temporal Artery Tenderness: Present: None Sinus Tenderness: Present: None TMJ Tenderness: Present: None Glascow Coma Scale (see protocol): 15 Meningeal Signs Positive: No ROM Limited In: No Limitiations Focal Weakness: Present: None Focal Sensory Loss: Present: None Gait: Unable Nystagmus Present: No Gag Reflex Present: Yes [id number]: Normal Findings Babinski Sign: Negative Right, Negative Left Differential Diagnoses: Migraine Review of Systems - Review Of Systems Constitutional: Reports: Malaise Eyes: Reports: No symptoms Ears, Nose, Mouth, Throat: Reports: No symptoms Respiratory: Reports: No symptoms Cardiac: Reports: No symptoms GI: Reports: No symptoms : Reports: No symptoms Musculoskeletal: Reports: No symptoms Skin: Reports: No symptoms Neurological: Reports: Headache, Tonic-Clonic seizures Endocrine: Reports: No symptoms Hematologic/Lymphatic: Reports: No symptoms All Other Systems: Reviewed and Negative Past Medical History - Past Medical History Previously Healthy: Yes Endocrine: Reports: None, Dyslipidemia Cardiovascular: Reports: None Respiratory: Reports: Asthma Hematological: Reports: None Gastrointestinal: Reports: None Genitourinary: Reports: None Neuro/Psych: Reports: Migraine, Seizure, Anxiety, Depression Musculoskeletal: Reports: Back Pain Cancer: Reports: None 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 - Surgical History General Surgical History: Reports: Tonsillectomy, Adenoidectomy, Orthopedic ( WRIST SURGERY), Other (EYE, EAR), Unknown - Family History Family History: Reports: Unknown - Social History Smoking Status: Current every day smoker, Light tobacco smoker Hx Substance Use: No Alcohol Screening: None Physical Exam - Physical Exam Appearance: Ill-appearing Ill-appearing: Moderate Pain Distress: Mild Eyes: CIARA, EOMI, Conjunctiva clear ENT: Ears normal, Oropharynx normal Respiratory: Airway patent, Breath sounds clear, Breath sounds equal Cardiovascular: RRR, Pulses normal, No rub, No murmur GI/: Soft, Nontender, No masses, Bowel sounds normal, No Organomegaly Musculoskeletal: Normal strength, ROM intact, No edema, No calf tenderness Skin: Warm, Dry, Normal color Neurological: Reflexes intact, Cranial nerves intact, Alert, Oriented Psychiatric: Affect appropriate, Mood appropriate Interpretation - Radiology Interpretation Radiology Interpretation By: Radiologist Radiology Results: No acute changes Physician Notification - Case Discussed Physician Notified: PMD Time of Notification: 18:30 Admit To: Inpatient Critical Care Note - Critical Care Note Total Time (mins): 0 Course - Course Hematology/Chemistry: 12/27/17 07:55 12/27/17 07:55 Orders, Labs, Meds: Lab Review 12/25/17 12/25/17 12/25/17 17:42 17:42 17:42 WBC 10.25 H RBC 4.59 L Hgb 13.4 L Hct 38.9 L MCV 84.7 MCH 29.2 MCHC 34.4 RDW Coeff of Deisi 12.4 Plt Count 233 Immature Gran % (Auto) 0.3 Neut % (Auto) 52.5 Lymph % (Auto) 30.0 Simpson % (Auto) 10.0 Eos % (Auto) 6.5 Baso % (Auto) 0.7 Immature Gran # (Auto) 0.0 Neut # (Auto) 5.4 Lymph # (Auto) 3.1 Simpson # (Auto) 1.0 Eos # (Auto) 0.7 Baso # (Auto) 0.1 Sodium 140 Potassium 3.9 Chloride 107 Carbon Dioxide 26 Anion Gap 10.9 BUN 11 Creatinine 0.77 Estimated GFR (MDRD) 112.00 BUN/Creatinine Ratio 14.28 Glucose 75 Lactic Acid 11.9 Calcium 8.8 Total Bilirubin 0.2 AST 16 ALT 22 Alkaline Phosphatase 62 Total Creatine Kinase 85 Troponin I < 0.0100 Total Protein 6.1 L Albumin 3.4 Globulin 2.7 Albumin/Globulin Ratio 1.26 Orders Category Date Time Status EKG-(ED ONLY) Stat CARDIO 12/25/17 17:26 Completed EKG-(IP & OP ONLY) DAILY CARDIO 12/26/17 06:00 Completed EKG-(IP & OP ONLY) DAILY CARDIO 12/27/17 06:00 Completed INTAKE & OUTPUT Q8HR CARE 12/25/17 18:08 Active Neuro Check [NEUROLOGICAL CHECKS] Q4HR CARE 12/25/17 18:09 Active VITAL SIGNS Q4HR CARE 12/25/17 18:08 Active REGULAR DIET DIETARY 12/25/17 Dinner Completed ED IV/MEDIPORT/POWERPORT .ONCE EMERGENCY 12/25/17 17:28 Active Neuro Check [ED NEUROLOGICAL CHECKS] .ONCE EMERGENCY 12/25/17 18:09 Active BLOOD CULTURE (ED ONLY) Stat LAB 12/25/17 17:42 Results CBC W/ AUTO DIFF DAILY@0600 LAB 12/26/17 05:15 Completed CBC W/ AUTO DIFF DAILY@0600 LAB 12/27/17 07:55 Completed CBC W/ AUTO DIFF Stat LAB 12/25/17 17:42 Completed COMPREHENSIVE METABOLIC PANEL DAILY@0600 LAB 12/26/17 05:15 Completed COMPREHENSIVE METABOLIC PANEL DAILY@0600 LAB 12/27/17 07:55 Completed COMPREHENSIVE METABOLIC PANEL Stat LAB 12/25/17 17:42 Completed CREATINE KINASE Stat LAB 12/25/17 17:42 Completed DRUG SCREEN (RAPID FOR ED) [DRUG SCREEN, URINE, RAPID] LAB 12/25/17 18:45 Completed Stat LACTIC ACID Stat LAB 12/25/17 17:42 Completed TROPONIN I Stat LAB 12/25/17 17:42 Completed 0.9 % Sodium Chloride [Saline Flush] MEDS 12/25/17 17:28 Discontinued 1 syr IVF PRN PRN Hydrocodone Bit/Acetaminophen [[place] 10-325] MEDS 12/25/17 18:10 Discontinued DOSE tab PO TID PRN Oxcarbazepine MEDS 12/25/17 21:00 Discontinued 300 mg PO BID Sodium Chloride 0.9% [Sodium Chloride] 1,000 ml MEDS 12/25/17 18:30 Discontinued IV 75 mls/hr CT HEAD W/O CONTRAST Stat RADS 12/25/17 17:28 Completed Medications Discontinued Medications Generic Name Dose Route Start Last Admin Trade Name Freq PRN Reason Stop Dose Admin Hydrocodone Bitart/Acetaminophen tab 12/25/17 18:10 [place] 10-325 PO TID PRN Analgesia Hydrocodone Bitart/Acetaminophen 1 tab 12/25/17 21:53 12/27/17 08:40 [place] 10-325 PO 1 tab TID PRN Administration Analgesia Sodium Chloride 1,000 mls @ 75 mls/hr 12/25/17 18:30 12/27/17 04:48 Sodium Chloride IV 75 mls/hr .[id number] COLTON Administration Non-Formulary Medication 300 mg 12/25/17 21:00 12/25/17 22:07 Oxcarbazepine PO 300 mg BID COLTON Administration Oxcarbazepine 300 mg 12/26/17 09:00 12/27/17 08:40 Trileptal PO 300 mg BID COLTON Administration Sodium Chloride 1 syr 12/25/17 17:28 Saline Flush IVF PRN PRN To flush IV Vital Signs: Temp Pulse Resp BP Pulse Ox 12/25/17 17:01 98.5 F 84 18 138/80 96 Departure - Departure Time of Disposition: 19:00 Disposition: ADMITTED INPATIENT Discharge Problem: Seizure Condition: Good Pt referred to PMD for follow-up: Yes IPMP verified?: No Allergies/Adverse Reactions: Allergies tramadol Allergy (Severe, Verified 12/25/17 17:14) itching all over dextromethorphan HBr [From NyQuil] Adverse Reaction (Verified 12/25/17 17:14) doxylamine [From NyQuil] Adverse Reaction (Verified 12/25/17 17:14) ketorolac [From Toradol] Adverse Reaction (Verified 12/25/17 17:14) prochlorperazine edisylate [From Compazine] Adverse Reaction (Verified 12/25/17 17:14) prochlorperazine maleate [From Compazine] Adverse Reaction (Verified 12/25/17 17 :14) Itching pseudoephedrine HCl [From NyQuco] Adverse Reaction (Verified 12/25/17 17:14) Itching Home Medications: Ambulatory Orders Oxcarbazepine [Trileptal] 300 mg PO BID 03/13/17 Hydrocodone/Acetaminophen [[place] 10-325 Tablet] 1 each PO TID PRN 12/25/17 Disposition Discussed With: Patient, Family
--- NOTE | 2017-12-25 18:05 | CT ---
EXAM: CT of the head without contrast History: Recurrent seizures. Comparison: Head CT 03/27/2017 Technique: Multiplanar CT images through the head were obtained without the administration of IV con trast Findings: Moderate mucosal thickening of the ethmoid air cells, similar to the prior study. Mastoid air cells are clear in general. No acute calvarial abnormalities. Intracranially the ventricular and cisternal spaces are normal in size, shape and configuration for a patient of this age. No dominant mass or midline shift. No hydrocephalous. No acute intracranial hemorrhage or abnormal extraaxial fluid collections. Impression: 1. No acute intracranial process. 2. No change in the moderate ethmoid sinus disease.
[2017-12-25] MEDS ORDERED: NORCO 10-325 PO PRN (18:10)
[2017-12-25] MEDS ORDERED: NON-FORMULARY MEDICATION (Oxcarbazepine 300 MG) PO SCH (21:00)
[2017-12-25 21:30] VITALS: BMI 25.4
[2017-12-25] MEDS: SODIUM CHLORIDE 1,000 ML IV SCH (21:36)
[2017-12-25] MEDS: NORCO 10-325 PO PRN (22:07)
[2017-12-26] MEDS: TRILEPTAL PO SCH ×2 (09:12→20:27)
[2017-12-26] MEDS: NORCO 10-325 PO PRN ×2 (09:13→17:56)
[2017-12-26] MEDS: SODIUM CHLORIDE 1,000 ML IV SCH (13:42)
[2017-12-27] MEDS: SODIUM CHLORIDE 1,000 ML IV SCH (04:48)
[2017-12-27] MEDS: TRILEPTAL PO SCH (08:40)
[2017-12-27] MEDS: NORCO 10-325 PO PRN (08:40)
--- NOTE | 2017-12-27 09:54 | HP ---
DATE OF SERVICE: 12/25/17 CHIEF COMPLAINT: Seizure. HISTORY OF PRESENT ILLNESS: This is a 42-year-old male, who initially went to the emergency room on 12/24 for seizures and migraine headache. The ER physician was given some pain medication. The patient went home, came back to [facility]. While he was waiting for appointment in the clinic, the patient was lethargic, almost falling down. Responds to verbal stimuli and goes back to sleep. He was complaining that he almost felt like he was having a seizure. The patient was sent to the emergency room, seen by Dr. Jarquin. CT head was negative for stroke. White count 10.25. Chemistry negative. Toxicology done which is negative. At that time, the patient was admitted to the hospital for breakthrough seizures. REVIEW OF SYSTEMS: CONSTITUTIONAL: Weakness, tiredness. No fever, no chills. HEENT: Normal. ENDOCRINE: No weight gain; no weight loss. CVS: No chest pain. No PND, no orthopnea. No shortness of breath. No PND, no orthopnea. RESPIRATORY: No cough, no congestion. No hemoptysis. GI: No nausea, no vomiting. No abdominal pain. No melena. : No hematuria. No polyuria. MUSCULOSKELETAL: Back pain. NEUROLOGIC: Change in mental status, lethargic. Headache. PSYCHIATRIC: Not anxious. No depression. No suicidal thoughts. No homicidal thoughts. SKIN: Intact, no open lesions. PAST MEDICAL HISTORY: Heart attack at age of 20 Hypercholesterolemia Angina Chest pain Hypertension Leg edema Seizure disorder, started at age 17 Headache started at age 17 Asthma History of pneumonia Sleep apnea - cannot use machine GERD Osteoarthritis DJD spine ADHD Bipolar Depression Anxiety Substance use disorder Behavioral problems PAST SURGICAL HISTORY: Wrist surgery Tonsillectomy Cataract surgery Ear tubes PERSONAL HISTORY: The patient smokes. He is , lives with . FAMILY HISTORY: Significant for CHF, diabetes type 2 and mother had small cell lung cancer. MEDICATIONS: (HOME) Trileptal ALLERGIES: TRAMADOL, DEXTROMETHORPHAN, DOXYLAMINE, TORADOL PHYSICAL EXAMINATION: V/S: BP 147/91, respiratory rate 19, heart rate 67, temperature 98, saturation 95. GENERAL: Sick looking male lying in bed. HEENT: Atraumatic, normocephalic. No scleral icterus. Pallor positive. Mucosa dry. NECK: Supple. No JVD, no bruit. No lymphadenopathy. No thyromegaly. HEART: S1, S2 normal. No murmur. No cyanosis or clubbing. No ascites. LUNGS: Clear to auscultation. No rales or rhonchi. ABDOMEN: Soft, nontender. Bowel sounds are active. No CVA tenderness. No rigidity or guarding. EXTREMITIES: No pedal edema. No cyanosis or clubbing. MUSCULOSKELETAL: Normal joints, no swelling. NEUROLOGIC: The patient responds to verbal stimuli and goes back to sleep. Moving all four extremities. SKIN: Intact; no open lesions. LYMPHATIC: No lymph nodes palpable. LABS: White count 10.25, hemoglobin 13.4, hematocrit 38.9, platelet count 233. Sodium 140, potassium 3.9, chloride 107, bicarb 26, BUN 11, creatinine 0.77, glucose 75. Drug screen negative. ASSESSMENT: 1. BREAKTHROUGH SEIZURE 2. HISTORY OF SEIZURE DISORDER 3. HISTORY OF POLYSUBSTANCE USE 4. ANGINA 5. HYPERTENSION 6. DYSLIPIDEMIA 7. DJD SPINE PLAN: 1. Admit patient to observation 2. Continue Trileptal and pain medication 3. Neurochecks TIME SPENT: MORE THAN 65 minutes MTDD
--- NOTE | 2017-12-27 10:28 | PN ---
DATE OF SERVICE: 12/26/17 SUBJECTIVE: No seizure since admission. The patient's is by the bedside. More awake and alert. REVIEW OF SYSTEMS: CONSTITUTIONAL: No fever, no chills. HEENT: Normal. ENDOCRINE: No weight gain, no weight loss. CVS: No angina symptoms. No CHF symptoms. No palpitations. No atypical chest pain for CAD. No shortness of breath. No PND, no orthopnea. RESPIRATORY: No cough, no hemoptysis. GI: No nausea, no vomiting. No abdominal pain. : No hematuria. No polyuria. MUSCULOSKELETAL: No joint swelling. PSYCHIATRIC: Not anxious. No depression. No suicidal thoughts. No homicidal thoughts. SKIN: Intact. No rash. PHYSICAL EXAMINATION: V/S: BP 135/80, respiratory rate 18, heart rate 84, temperature 98.0, saturation 94. HEENT: Normocephalic, atraumatic. Mucosa dry. Pallor positive. No icterus. NECK: Supple. No JVD, no carotid bruit. No lymphadenopathy. LUNGS: Clear to auscultation. No rales or rhonchi. HEART: S1, S2 normal. No S3. No murmur, gallop or regurgitation. ABDOMEN: Soft, nontender. Bowel sounds active. No rigidity. No rebound or guarding. No CVA tenderness. EXTREMITIES: No cyanosis, clubbing or pedal edema. MUSCULOSKELETAL: No joint swelling. NEUROLOGIC: Awake, alert. No focal deficit. LYMPHATIC: No lymph nodes palpable. SKIN: Intact. LABS: White count 7.50, hemoglobin 12.7, hematocrit 38.5, platelet count 244. Sodium 141, potassium 4.0, chloride 109, bicarb 24, BUN 9, creatinine 0.76, glucose 101. ASSESSMENT: 1. BREAKTHROUGH SEIZURE 2. POLYSUBSTANCE USE, NOT NOW 3. HISTORY OF DEAFNESS IN THE RIGHT EAR 4. ANGINA 5. CORONARY ARTERY DISEASE 6. SLEEP APNEA 7. OSTEOARTHRITIS 8. DJD SPINE 9. BIPOLAR AFFECTIVE DISORDER 10. ADHD PLAN: 1. Continue neurochecks 2. Continue Hydrocodone and Trileptal 3. IV fluids TIME SPENT: More than 35 minutes MTDD
[2017-12-27 10:39] VITALS: BP 140/81; TEMP 97.5
--- NOTE | 2017-12-27 17:06 | PCM.HOSP ---
- Observation Care Discharge [id number] OBS Care Discharge ([id number]): 12/27 - Initial Observation Care [id number] High Complexity 70 Minutes ([id number]): 12/25 - Subsequent Observation Care [id number] 35 Minutes per Day ([id number]): 12/26
--- NOTE | 2017-12-28 11:01 | DS ---
DATE OF SERVICE: 12/27/17 FINAL DIAGNOSIS: 1. Break through seizure 2. Recurrent seizures 3. History of coronary artery disease, per patient 4. Headaches 5. Sleep apnea, does not use a CPAP machine 6. GERD 7. Osteoarthritis 8. Depression 9. Anxiety 10.Bipolar disorder 11.ADHD, sees Dr. Keenan 12.History of substance use disorder 13.Behavioral disorder DISCHARGE INSTRUCTIONS: Discharge the the patient home. Continue the home medication as given. Please followup with Dr. Uri Salinas in [place] for the seizures. Advised not to take any street drugs. MEDICATIONS AT DISCHARGE: Hydrocodone Trileptal DIET INSTRUCTIONS: Cardiac and Healthy ACTIVITY: As tolerated DISEASE SPECIFIC EDUCATION: Not to drive with seizure disorder Continue taking medication everyday Please do not drink alcohol HOSPITAL COURSE: Ozzy Mondragon 42 year old male who has a history of the seizure disorder was initially seen in the emergency room on 12/24 for migraine and seizure was given pain medication and sent home but the patient was still groggy and not able to wake up completely. He came to the office wanting to be seen. The patient was almost having appending seizures. The patient was sent to the emergency room and seen by Dr. Jarquin. Urine drug screen negative. CT head is negative. Admitted to the hospital for the observation, by the next day the patient did have one episode of the seizure but it was not witnessed. Trileptal level been obtained. Urine drug screen negative. No signs of any infection. The patient being neurological monitored and Ativan PRN was given which did help some but we did not give it as a regular medication because we don't want the patient to do sleepy. Trileptal levels were not available at the time of discharge. As the patient been doing better and did not have anymore seizures overnight until today afternoon so the patient being discharged home. TIME SPENT: MORE THAN 65 MINUTES MTDD
== END 2017-12-27 12:14 | disposition home or self-care (01) | DRG 103 ==
LOC: ED 17:01 → SCU 18:30 → MEDSURG B 22:25
PROVIDERS: ADMIT Emergency Medicine; ATTEND Emergency Medicine
DX: G43.909 Migraine, unspecified, not intractable, without status migrainosus (principal); R53.83 Other fatigue; G47.30 Sleep apnea, unspecified; K21.9 Gastro-esophageal reflux disease without esophagitis; M19.90 Unspecified osteoarthritis, unspecified site; F31.9 Bipolar disorder, unspecified; F90.9 Attention-deficit hyperactivity disorder, unspecified type; F91.9 Conduct disorder, unspecified; F41.8 Other specified anxiety disorders; Z72.0 Tobacco use
CPT/HCPCS: 36415; 80053; 80306; 82550; 83605; 84484; 85025; 87040; 87081; 93005; 93010; 99284

== ENCOUNTER 2017-12-28 14:56 | Outpatient (CLI) | END 2017-12-28 15:17 | disposition short-term general hospital (02) | LOC: AMBL 14:56 | PROVIDERS: ATTEND Family Medicine | DX: R56.9 Unspecified convulsions (principal) ==

== ENCOUNTER 2018-01-01 16:50 | Emergency (ER) ==
[2018-01-01 16:50] VITALS: BMI 25.4
[2018-01-01 16:57] VITALS: BP 155/92; TEMP 98.3
--- NOTE | 2018-01-01 17:09 | ED.PDOC ---
General ED Provider: Dr. JENNIFER NASH Chief Complaint: Earache Stated Complaint: left ear pain Time Seen by Physician: 17:00 (seen with lili at all times ) Mode of Arrival: Wheelchair Information Source: Family Exam Limitations: No limitations Primary Care Provider: JUSTIN GREENFIELD Nursing and Triage Documentation Reviewed and Agree: Yes Does patient meet sepsis criteria?: No If yes, has appropriate treatment been initiated?: No System Inflammatory Response Syndrome: Not Applicable Sepsis Protocol: For patient's 13 years and over: Temp is 96.8 and below OR 101 and greater Pulse >90 BPM Resp >20/minute Acutely Altered Mental Status Are patient's symptoms suggestive of a new infection, such as: -Pneumonia -Skin, Soft Tissue -Endocarditis -UTI -Bone, Joint Infection -Implantable Device -Acute Abdominal Infection -Wound Infection -Meningitis -Blood Stream Catheter Infection -Unknown EENT Complaint Exam - Ear Complaint/Exam Onset/Duration: 1 day Symptoms Are: Still present Timing: Intermittent Initial Severity: Moderate Current Severity: Mild Character: Reports: Dull pain Aggravating: Reports: None Alleviating: Reports: None Associated Signs and Symptoms: Denies: Ear trauma, Ear swelling, Discharge, Fever, Hearing loss, Bleeding, Sore throat, Headache, URI symptoms, Foreign body sensation, Rash, Pain to external ear, Pain to external face Ear Surgical History: None Vesicles to External Pinna: No Vesicles to Tragus: No TMJ Tenderness: None Mastoid Tenderness: None Tragal Tenderness: None External Canal: Normal Tympanic Membrane: Erythema (left) Differential Diagnoses: Otitis Media, URI Review of Systems - Review Of Systems Constitutional: Reports: No symptoms Eyes: Reports: No symptoms Ears, Nose, Mouth, Throat: Reports: Ear pain Respiratory: Reports: No symptoms Cardiac: Reports: No symptoms GI: Reports: No symptoms : Reports: No symptoms Musculoskeletal: Reports: No symptoms Skin: Reports: No symptoms Neurological: Reports: No symptoms Endocrine: Reports: No symptoms Hematologic/Lymphatic: Reports: No symptoms All Other Systems: Reviewed and Negative Past Medical History - Past Medical History Previously Healthy: Yes Endocrine: Reports: None, Dyslipidemia Cardiovascular: Reports: None Respiratory: Reports: Asthma Hematological: Reports: None Gastrointestinal: Reports: None Genitourinary: Reports: None Neuro/Psych: Reports: Migraine, Seizure, Anxiety, Depression Musculoskeletal: Reports: Back Pain Cancer: Reports: None 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 - Surgical History General Surgical History: Reports: Tonsillectomy, Adenoidectomy, Orthopedic ( WRIST SURGERY), Other (EYE, EAR), Unknown - Family History Family History: Reports: Unknown - Social History Smoking Status: Current every day smoker, Light tobacco smoker Hx Substance Use: No Alcohol Screening: None Physical Exam - Physical Exam Appearance: Well-appearing, No pain distress, Well-nourished Eyes: CIARA, EOMI, Conjunctiva clear ENT: Erythema (left ) Respiratory: Airway patent, Breath sounds clear, Breath sounds equal, Respirations nonlabored Cardiovascular: RRR, Pulses normal, No rub, No murmur GI/: Soft, Nontender, No masses, Bowel sounds normal, No Organomegaly Musculoskeletal: Normal strength, ROM intact, No edema, No calf tenderness Skin: Warm, Dry, Normal color Neurological: Sensation intact, Motor intact, Reflexes intact, Cranial nerves intact, Alert, Oriented Psychiatric: Affect appropriate, Mood appropriate Critical Care Note - Critical Care Note Total Time (mins): 0 Course - Course Vital Signs: Temp Pulse Resp BP Pulse Ox 01/01/18 16:50 98.3 F 81 20 155/92 H 94 L Departure - Departure Time of Disposition: 17:09 Disposition: HOME SELF-CARE Discharge Problem: Otitis media Qualifiers: Otitis media type: unspecified Chronicity: acute Qualified Code(s): H66.90 - Otitis media, unspecified, unspecified ear Instructions: Ear Infection (ED) Condition: Good Pt referred to PMD for follow-up: Yes IPMP verified?: No Additional Instructions: Please call your Family Physician as soon as possible to schedule a follow-up appointment. Allergies/Adverse Reactions: Allergies tramadol Allergy (Severe, Verified 01/01/18 16:57) itching all over dextromethorphan HBr [From NyQuil] Adverse Reaction (Verified 01/01/18 16:57) doxylamine [From NyQuil] Adverse Reaction (Verified 01/01/18 16:57) ketorolac [From Toradol] Adverse Reaction (Verified 01/01/18 16:57) prochlorperazine edisylate [From Compazine] Adverse Reaction (Verified 01/01/18 16:57) prochlorperazine maleate [From Compazine] Adverse Reaction (Verified 01/01/18 16 :57) Itching pseudoephedrine HCl [From NyQuil] Adverse Reaction (Verified 01/01/18 16:57) Itching Home Medications: Ambulatory Orders Oxcarbazepine [Trileptal] 300 mg PO BID 03/13/17 Hydrocodone/Acetaminophen [[place] 10-325 Tablet] 1 each PO TID PRN 12/25/17 Levetiracetam [Keppra Xr] 500 mg PO BID 01/01/18 Pantoprazole Sodium 40 mg PO DAILY 01/01/18 Venlafaxine HCl [Effexor Xr] 37.5 mg PO DAILY 01/01/18
== END 2018-01-01 17:19 | disposition home or self-care (01) ==
LOC: ED 16:50
DX: H66.92 Otitis media, unspecified, left ear (principal)
CPT/HCPCS: 99282

== ENCOUNTER 2018-01-08 17:48 | Emergency (ER) ==
[2018-01-08 17:48] VITALS: BMI 25.4
[2018-01-08 17:55] VITALS: BP 121/74; TEMP 98.1
--- NOTE | 2018-01-08 18:47 | ED.PDOC ---
General Stated Complaint: constipation Time Seen by Physician: 18:00 (3 days no BM) Mode of Arrival: Wheelchair Information Source: Family Exam Limitations: No limitations Nursing and Triage Documentation Reviewed and Agree: Yes Does patient meet sepsis criteria?: No System Inflammatory Response Syndrome: Not Applicable <SAADJENNIFER Last Filed: 01/08/18 18:45> <RAJANI SOLANO - Last Filed: 01/08/18 20:03> ED Provider: Dr. RAJANI SOLANO Chief Complaint: Constipation Primary Care Provider: RAJANI [facility] Sepsis Protocol: For patient's 13 years and over: Temp is 96.8 and below OR 101 and greater Pulse >90 BPM Resp >20/minute Acutely Altered Mental Status Are patient's symptoms suggestive of a new infection, such as: -Pneumonia -Skin, Soft Tissue -Endocarditis -UTI -Bone, Joint Infection -Implantable Device -Acute Abdominal Infection -Wound Infection -Meningitis -Blood Stream Catheter Infection -Unknown GI Complaint Exam - Abdominal Pain Complaint/Exam Onset: Gradual Duration: 3 DAYS Symptoms Are: Still present Timing: Constant Initial Severity: Mild Current Severity: Mild Location of Pain: Diffuse Character: Reports: Dull Aggravating: Reports: None Alleviating: Reports: None Associated Signs and Symptoms: Reports: Constipation. Denies: Diaphoresis, Fever, Cough, Chest pain, Dizziness, Back pain, Blood in stool, Dysuria, Urinary frequency, Decreased urine output, Decreased appetite, Discharge, Nausea , Vomiting, Diarrhea, Decreased activity Related History: Reports: Similar episode AAA Risk Factors: Reports: None Cardiac Risk Factors: Reports: Elevated lipids Testicular Torsion Risk Factors: Reports: None Surgical Obstruction Risk Factors: Reports: None Related Surgical History: Reports: None Abdominal Findings: Present: None Differential Diagnoses: Constipation <SAADJENNIFER Filed: 01/08/18 18:45> Review of Systems - Review Of Systems Constitutional: Reports: No symptoms Eyes: Reports: No symptoms Ears, Nose, Mouth, Throat: Reports: No symptoms Respiratory: Reports: No symptoms Cardiac: Reports: No symptoms GI: Reports: No symptoms : Reports: No symptoms Musculoskeletal: Reports: No symptoms Skin: Reports: No symptoms Neurological: Reports: No symptoms Endocrine: Reports: No symptoms Hematologic/Lymphatic: Reports: No symptoms All Other Systems: Reviewed and Negative <JENNIFER NASH Last Filed: 01/08/18 18:45> Past Medical History - Past Medical History Previously Healthy: Yes Endocrine: Reports: None, Dyslipidemia Cardiovascular: Reports: None Respiratory: Reports: Asthma Hematological: Reports: None Gastrointestinal: Reports: None Genitourinary: Reports: None Neuro/Psych: Reports: Migraine, Seizure, Anxiety, Depression Musculoskeletal: Reports: Back Pain Cancer: Reports: None 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 - Surgical History General Surgical History: Reports: Tonsillectomy, Adenoidectomy, Orthopedic ( WRIST SURGERY), Other (EYE, EAR), Unknown - Family History Family History: Reports: Unknown - Social History Smoking Status: Current every day smoker, Light tobacco smoker Hx Substance Use: No Alcohol Screening: None <JENNIFER NASH - Last Filed: 01/08/18 18:45> Physical Exam - Physical Exam Appearance: Well-appearing, No pain distress, Well-nourished Eyes: CIARA, EOMI, Conjunctiva clear ENT: Ears normal, Nose normal, Oropharynx normal Respiratory: Airway patent, Breath sounds clear, Breath sounds equal, Respirations nonlabored Cardiovascular: RRR, Pulses normal, No rub, No murmur GI/: Soft, Nontender, No masses, Bowel sounds normal, No Organomegaly Musculoskeletal: Normal strength, ROM intact, No edema, No calf tenderness Skin: Warm, Dry, Normal color Neurological: Sensation intact, Motor intact, Reflexes intact, Cranial nerves intact, Alert, Oriented Psychiatric: Affect appropriate, Mood appropriate <JENNIFER NASH Last Filed: 01/08/18 18:45> Interpretation - Radiology Interpretation Radiology Interpretation By: Radiologist Radiology Results: Positive Exam Interpreted: CT Scan <RAJANI SOLANO - Last Filed: 01/08/18 20:03> Physician Notification - Case Discussed Physician Notified: XIOMARA WOOTEN Time of Notification: 19:00 <JENNIFER NASH Last Filed: 01/08/18 18:45> Critical Care Note - Critical Care Note Total Time (mins): 0 <JENNIFER NASH Last Filed: 01/08/18 18:45> - Critical Care Note Total Time (mins): 30 <RAJANI SOLANO Last Filed: 01/08/18 20:03> Course - Course Hematology/Chemistry: 01/08/18 19:02 01/08/18 19:02 <RAJANI SOLANO - Last Filed: 01/08/18 20:03> - Course Orders, Labs, Meds: Lab Review 01/08/18 01/08/18 19:02 19:02 WBC 8.08 RBC 5.14 Hgb 14.8 Hct 43.6 MCV 84.8 MCH 28.8 MCHC 33.9 RDW Coeff of Deisi 12.8 Plt Count 271 Immature Gran % (Auto) 0.2 Neut % (Auto) 54.2 Lymph % (Auto) 31.7 [place] % (Auto) 8.5 Eos % (Auto) 4.5 Baso % (Auto) 0.9 Immature Gran # (Auto) 0.0 Neut # (Auto) 4.4 Lymph # (Auto) 2.6 [place] # (Auto) 0.7 Eos # (Auto) 0.4 Baso # (Auto) 0.1 Sodium 141 Potassium 3.7 Chloride 108 H Carbon Dioxide 24 Anion Gap 12.7 BUN 15 Creatinine 0.88 Estimated GFR (MDRD) 95.00 BUN/Creatinine Ratio 17.04 Glucose 133 H Calcium 9.2 Total Bilirubin 0.3 AST 14 L ALT 26 Alkaline Phosphatase 78 Total Protein 7.0 Albumin 3.8 Globulin 3.2 Albumin/Globulin Ratio 1.19 Orders Category Date Time Status Milk and Molasses Enema [ED ENEMA/RECTAL TUBE] .ONCE EMERGENCY 01/08/18 19:05 Active CBC W/ AUTO DIFF Stat LAB 01/08/18 19:02 Completed COMPREHENSIVE METABOLIC PANEL Stat LAB 01/08/18 19:02 Completed UA [URINALYSIS C & S IF INDICATED] Stat LAB 01/08/18 19:[address] ABDOMEN/PELVIS WO CONTRAST Stat RADS 01/08/18 18:10 Completed Vital Signs: Temp Pulse Resp BP Pulse Ox 01/08/18 17:48 98.1 F 111 H 18 121/74 96 Departure - Departure Pt referred to PMD for follow-up: Yes <JENNIFER NASH - Last Filed: 01/08/18 18:45> - Departure Time of Disposition: 20:03 Pt referred to PMD for follow-up: Yes IPMP verified?: No Disposition Discussed With: Patient, Family <RAJANI SOLANO - Last Filed: 01/08/18 20:03> - Departure Disposition: HOME SELF-CARE Discharge Problem: Constipation Instructions: Constipation (ED), High Fiber Diet (ED) Condition: Good Additional Instructions: KEEP FOLLOW UP APPOINTMENT WITH ON 01/11/18. INCREASE FIBER AND WATER INTAKE. Allergies/Adverse Reactions: Allergies tramadol Allergy (Severe, Verified 01/08/18 17:55) itching all over dextromethorphan HBr [From NyQuil] Adverse Reaction (Verified 01/08/18 17:55) doxylamine [From NyQuil] Adverse Reaction (Verified 01/08/18 17:55) ketorolac [From Toradol] Adverse Reaction (Verified 01/08/18 17:55) prochlorperazine edisylate [From Compazine] Adverse Reaction (Verified 01/08/18 17:55) prochlorperazine maleate [From Compazine] Adverse Reaction (Verified 01/08/18 17 :55) Itching pseudoephedrine HCl [From NyQuil] Adverse Reaction (Verified 01/08/18 17:55) Itching Home Medications: Ambulatory Orders Oxcarbazepine [Trileptal] 300 mg PO BID 03/13/17 Hydrocodone/Acetaminophen [[place] 10-325 Tablet] 1 each PO TID PRN 12/25/17 Levetiracetam [Keppra Xr] 500 mg PO BID 01/01/18 Pantoprazole Sodium 40 mg PO DAILY 01/01/18 Venlafaxine HCl [Effexor Xr] 37.5 mg PO DAILY 01/01/18
--- NOTE | 2018-01-08 18:54 | CT ---
EXAM: CT abdomen pelvis without contrast HISTORY: Abdominal pain and constipation COMPARISON: CT pelvis 02/26/2017 TECHNIQUE: Serial axial images of the abdomen pelvis were performed from the lung bases through the inferior pelvis without contrast. These were viewed in multiple planes. FINDINGS: The lung bases are clear. Evaluation is limited due to lack of contrast. The liver is unremarkable. The gallbladder is normal . The the adrenal glands are unremarkable. Kidneys are normal. The spleen is unremarkable. Pancre as is unremarkable. The stomach is distended with debris. The small bowel in the abdomen pelvis is unremarkable. The appendix is normal. There is moderate am ount of stool in the distal colon. The colon is otherwise unremarkable with few scattered diverticul i. Urinary bladder is distended. The prostate is unremarkable. The osseous structures are unremark able. IMPRESSION: 1. No acute intra-abdominal or pelvic process. There is moderate amount of stool in the distal colo n. 2. Few scattered diverticuli with no diverticulitis.
== END 2018-01-08 20:01 | disposition home or self-care (01) ==
LOC: ED 17:48
DX: K59.00 Constipation, unspecified (principal); R10.9 Unspecified abdominal pain
CPT/HCPCS: 36415; 80053; 85025; 99284

== ENCOUNTER 2018-02-03 16:45 | Emergency (ER) ==
[2018-02-03 16:47] VITALS: BP 137/90; TEMP 98.7; BMI 25.2
[2018-02-03] MEDS ORDERED: IMITREX SUBCUT STA (17:12)
[2018-02-03] MEDS ORDERED: ATIVAN PO STA (17:12)
--- NOTE | 2018-02-03 17:16 | ED.PDOC ---
General ED Provider: Dr. MISAEL KESSLER Chief Complaint: Headache Stated Complaint: Patient states that his left him for another man and has since been depressed but is not suicidal. He recently started Zoloft but has not helped him much. He states that today he started having severe headaches bilaterally similar to his usual migranes. Time Seen by Physician: 17:00 Mode of Arrival: Walk-In Information Source: Patient Exam Limitations: No limitations [facility] Nursing and Triage Documentation Reviewed and Agree: Yes Does patient meet sepsis criteria?: No System Inflammatory Response Syndrome: Not Applicable Sepsis Protocol: For patient's 13 years and over: Temp is 96.8 and below OR 101 and greater Pulse >90 BPM Resp >20/minute Acutely Altered Mental Status Are patient's symptoms suggestive of a new infection, such as: -Pneumonia -Skin, Soft Tissue -Endocarditis -UTI -Bone, Joint Infection -Implantable Device -Acute Abdominal Infection -Wound Infection -Meningitis -Blood Stream Catheter Infection -Unknown Neurological Complaint Exam - Headache Complaint/Exam Onset: Gradual Duration: 1 day Symptoms Are: Still present Timing: Constant Worst Headache Ever: No Initial Severity: Moderate Current Severity: Severe Location: Right, Left, Frontal, Temporal Character: Reports: Throbbing, Typical headache, Migraine Aggravating: Reports: Bright lights Associated Signs and Symptoms: Denies: Dizziness, Seizure, Vomiting, Sinus pressure, Fever, Neck pain, Neck stiffness, Decreased LOC, Visual changes Related History: Reports: Similar episode Related Surgical History: Reports: None SAH Risk Factors: Reports: None Meningitis Risk Factors: Reports: None SDH Risk Factors: Reports: None Temporal Arteritis Risk Factors: Reports: None Normal Head CT Within Last 12 Months: Yes Temporal Artery Tenderness: Present: None Sinus Tenderness: Present: None TMJ Tenderness: Present: None Glascow Coma Scale (see protocol): 15 Meningeal Signs Positive: No Pain on Passive Flexion-Positive Kernig's: No ROM Limited In: No Limitiations Focal Weakness: Present: None Focal Sensory Loss: Present: None Gait: Normal Nystagmus Present: No Gag Reflex Present: Yes [id number]: Normal Findings Romberg Test Positive: No Babinski Sign: Negative Right, Negative Left Heel to Toe Normal: No Head Picture: 1 - pain Differential Diagnoses: Migraine, Tension Headache Review of Systems - Review Of Systems Constitutional: Reports: Loss of appetite Eyes: Reports: Photophobia Ears, Nose, Mouth, Throat: Reports: No symptoms Respiratory: Reports: No symptoms Cardiac: Reports: No symptoms GI: Reports: Nausea : Reports: No symptoms Musculoskeletal: Reports: No symptoms Skin: Reports: No symptoms Neurological: Reports: Anxiety, Depressed, Emotional problems, Headache Endocrine: Reports: No symptoms Hematologic/Lymphatic: Reports: No symptoms All Other Systems: Reviewed and Negative Past Medical History - Past Medical History Previously Healthy: Yes Endocrine: Reports: None, Dyslipidemia Cardiovascular: Reports: None Respiratory: Reports: Asthma Hematological: Reports: None Gastrointestinal: Reports: None Genitourinary: Reports: None Neuro/Psych: Reports: Migraine, Seizure, Anxiety, Depression Musculoskeletal: Reports: Back Pain Cancer: Reports: None 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 - Surgical History General Surgical History: Reports: Tonsillectomy, Adenoidectomy, Orthopedic ( WRIST SURGERY), Other (EYE, EAR), Unknown - Family History Family History: Reports: Unknown - Social History Smoking Status: Current every day smoker, Light tobacco smoker Hx Substance Use: No Alcohol Screening: None - Immunizations Tetanus Shot up to Date: No Physical Exam - Physical Exam Appearance: Ill-appearing Ill-appearing: Mild Pain Distress: Severe Eyes: CIARA, EOMI, Conjunctiva clear Neck: Supple Respiratory: Airway patent, Breath sounds clear, Breath sounds equal, Respirations nonlabored Cardiovascular: RRR, Pulses normal, No rub, No murmur GI/: Soft, Nontender, No masses, Bowel sounds normal, No Organomegaly Musculoskeletal: Normal strength, ROM intact, No edema, No calf tenderness Skin: Warm, Dry, Normal color Neurological: Sensation intact, Motor intact, Reflexes intact, Cranial nerves intact, Alert, Oriented Psychiatric: Anxious, Depressed Critical Care Note - Critical Care Note Total Time (mins): 0 Comments: declines to have a counselor comes speak to him about his depression due to his leaving him. states he is not suicidal. Course - Course Orders, Labs, Meds: Orders Category Date Time Status Lorazepam [Ativan] MEDS 02/03/18 17:12 Discontinued 1 mg PO ONCE STA Sumatriptan Succinate [Imitrex] MEDS 02/03/18 17:12 Discontinued 6 mg SUBCUT ONCE STA Medications Discontinued Medications Generic Name Dose Route Start Last Admin Trade Name Garrett LOPEZ Reason Stop Dose Admin Lorazepam 1 mg 02/03/18 17:12 02/03/18 17:23 Ativan PO 02/03/18 17:13 1 mg ONCE STA Administration Sumatriptan Succinate 6 mg 02/03/18 17:12 02/03/18 17:23 Imitrex SUBCUT 02/03/18 17:13 6 mg ONCE STA Administration Vital Signs: Temp Pulse Resp BP Pulse Ox 02/03/18 16:45 98.7 F 90 16 137/90 95 Departure - Departure Time of Disposition: 17:52 Disposition: HOME SELF-CARE Discharge Problem: Migraine headache Qualifiers: Migraine type: without aura Status migrainosus presence: with status migrainosus Intractability: not intractable Qualified Code(s): G43.001 - Migraine without aura, not intractable, with status migrainosus Depression Qualifiers: Depression Type: major depressive disorder Major depression recurrence: recurrent Active/Remission status: currently active Major depression episode severity: moderate Qualified Code(s): F33.1 - Major depressive disorder, recurrent, moderate Instructions: Migraine Headache (ED), Depression (ED) Condition: Stable Pt referred to PMD for follow-up: Yes IPMP verified?: No Additional Instructions: continue home medications Follow up with PCP in 3 days Allergies/Adverse Reactions: Allergies tramadol Allergy (Severe, Verified 02/03/18 16:47) itching all over dextromethorphan HBr [From NyQuil] Adverse Reaction (Verified 02/03/18 16:47) doxylamine [From NyQuil] Adverse Reaction (Verified 02/03/18 16:47) ketorolac [From Toradol] Adverse Reaction (Verified 02/03/18 16:47) prochlorperazine edisylate [From Compazine] Adverse Reaction (Verified 02/03/18 16:47) prochlorperazine maleate [From Compazine] Adverse Reaction (Verified 02/03/18 16 :47) Itching pseudoephedrine HCl [From NyQuil] Adverse Reaction (Verified 02/03/18 16:47) Itching Home Medications: Ambulatory Orders Oxcarbazepine [Trileptal] 300 mg PO BID 03/13/17 Hydrocodone/Acetaminophen [[place] 10-325 Tablet] 1 each PO TID PRN 12/25/17 Levetiracetam [Keppra Xr] 500 mg PO BID 01/01/18 Pantoprazole Sodium 40 mg PO DAILY 01/01/18 Sertraline HCl [Zoloft] 25 mg PO DAILY 02/03/18 Disposition Discussed With: Patient, Family
== END 2018-02-03 17:55 | disposition home or self-care (01) ==
LOC: ED 16:45
DX: G43.001 Migraine without aura, not intractable, with status migrainosus (principal); F33.1 Major depressive disorder, recurrent, moderate; F17.210 Nicotine dependence, cigarettes, uncomplicated
CPT/HCPCS: 96372; 99283

== ENCOUNTER 2018-02-18 23:36 | Emergency (ER) ==
[2018-02-18 23:41] VITALS: BP 129/78; TEMP 98.4; BMI 24.4
[2018-02-19] MEDS ORDERED: PHENERGAN 25 MG/ML VIAL IM STA (00:01)
[2018-02-19] MEDS ORDERED: DILAUDID 2 MG/ML SDV IM STA (00:01)
[2018-02-19] MEDS ORDERED: PHENERGAN 25 MG/ML VIAL ONE (00:03)
[2018-02-19] MEDS ORDERED: DILAUDID 2 MG/ML SDV ONE (00:03)
--- NOTE | 2018-02-19 00:04 | ED.PDOC ---
General ED Provider: Dr. TY STALLINGS-ER Chief Complaint: Nausea/Vomiting Stated Complaint: jesus manuel got a migraine canseco Time Seen by Physician: 00:02 Mode of Arrival: Walk-In Information Source: Patient Exam Limitations: No limitations Primary Care Provider: JUSTIN GREENFIELD Nursing and Triage Documentation Reviewed and Agree: Yes Does patient meet sepsis criteria?: No System Inflammatory Response Syndrome: Not Applicable Sepsis Protocol: For patient's 13 years and over: Temp is 96.8 and below OR 101 and greater Pulse >90 BPM Resp >20/minute Acutely Altered Mental Status Are patient's symptoms suggestive of a new infection, such as: -Pneumonia -Skin, Soft Tissue -Endocarditis -UTI -Bone, Joint Infection -Implantable Device -Acute Abdominal Infection -Wound Infection -Meningitis -Blood Stream Catheter Infection -Unknown Neurological Complaint Exam - Headache Complaint/Exam Onset: Gradual Duration: several hours Symptoms Are: Still present Timing: Constant Worst Headache Ever: No Initial Severity: Mild Current Severity: Moderate Location: Diffuse Character: Reports: Dull, Throbbing, Pressure, Typical headache, Migraine Aggravating: Reports: Bright lights Alleviating: Reports: None Associated Signs and Symptoms: Reports: Nausea Related History: Reports: Similar episode Related Surgical History: Reports: None SAH Risk Factors: Reports: None Meningitis Risk Factors: Reports: None SDH Risk Factors: Reports: None Temporal Arteritis Risk Factors: Reports: Normal Head CT Within Last 12 Months: Yes Fundoscopic Exam: Present: Normal Findings Papilledema Present: No Temporal Artery Tenderness: Present: None Sinus Tenderness: Present: None TMJ Tenderness: Present: None Glascow Coma Scale (see protocol): 15 Meningeal Signs Positive: No Pain on Passive Flexion-Positive Kernig's: No ROM Limited In: No Limitiations Focal Weakness: Present: None Focal Sensory Loss: Present: None Gait: Normal Nystagmus Present: No Gag Reflex Present: No [id number]: Normal Findings Romberg Test Positive: No Heel to Toe Normal: No Differential Diagnoses: Migraine Review of Systems - Review Of Systems Constitutional: Reports: No symptoms Eyes: Reports: No symptoms Ears, Nose, Mouth, Throat: Reports: No symptoms Respiratory: Reports: No symptoms Cardiac: Reports: No symptoms GI: Reports: Nausea : Reports: No symptoms Musculoskeletal: Reports: No symptoms Skin: Reports: No symptoms Neurological: Reports: Headache Endocrine: Reports: No symptoms Hematologic/Lymphatic: Reports: No symptoms All Other Systems: Reviewed and Negative Past Medical History - Past Medical History Previously Healthy: Yes Endocrine: Reports: None, Dyslipidemia Cardiovascular: Reports: None Respiratory: Reports: Asthma Hematological: Reports: None Gastrointestinal: Reports: None Genitourinary: Reports: None Neuro/Psych: Reports: Migraine, Seizure, Anxiety, Depression Musculoskeletal: Reports: Back Pain Cancer: Reports: None 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 - Surgical History General Surgical History: Reports: Tonsillectomy, Adenoidectomy, Orthopedic ( WRIST SURGERY), Other (EYE, EAR), Unknown - Family History Family History: Reports: Unknown - Social History Smoking Status: Current every day smoker, Light tobacco smoker Hx Substance Use: Yes (3 weeks) Alcohol Screening: None Physical Exam - Physical Exam Appearance: Well-appearing, No pain distress, Well-nourished Eyes: CIARA, EOMI, Conjunctiva clear ENT: Ears normal Neck: Supple Respiratory: Airway patent Cardiovascular: RRR, Pulses normal, No rub, No murmur GI/: Soft, Nontender, No masses, Bowel sounds normal, No Organomegaly Musculoskeletal: Normal strength, ROM intact, No edema, No calf tenderness Skin: Warm, Dry, Normal color Neurological: Sensation intact, Motor intact, Reflexes intact, Cranial nerves intact, Alert, Oriented Psychiatric: Affect appropriate, Mood appropriate Re-Evaluation - Re-Evaluation Time of Re-Evaluation: 00:30 Status: Improved Vital Signs Stable: Yes Pain Level: 1 Appearance: NAD Lungs: Clear Skin: Warm and Dry Neuro: Alert and Oriented X3 CV: RRR Critical Care Note - Critical Care Note Total Time (mins): 0 Course - Course Orders, Labs, Meds: Orders Category Date Time Status Hydromorphone HCl [Dilaudid 2 mg/ml Sdv] MEDS 02/19/18 00:01 Discontinued 1 mg IM ONCE STA Promethazine HCl [Phenergan 25 mg/ml Vial] MEDS 02/19/18 00:01 Discontinued 25 mg IM ONCE STA Medications Discontinued Medications Generic Name Dose Route Start Last Admin Trade Name Freq PRN Reason Stop Dose Admin Hydromorphone HCl 1 mg 02/19/18 00:01 Dilaudid 2 Mg/Ml Sdv IM 02/19/18 00:02 ONCE STA Promethazine HCl 25 mg 02/19/18 00:01 Phenergan 25 Mg/Ml Vial IM 02/19/18 00:02 ONCE STA Vital Signs: Temp Pulse Resp BP Pulse Ox 02/18/18 23:37 98.4 F 96 H 18 129/78 97 Departure - Departure Time of Disposition: 00:05 Disposition: HOME SELF-CARE Discharge Problem: Migraine headache Qualifiers: Migraine type: other Status migrainosus presence: without status migrainosus Intractability: not intractable Qualified Code(s): G43.809 - Other migraine, not intractable, without status migrainosus Instructions: Migraine Headache (ED) Condition: Fair Pt referred to PMD for follow-up: Yes IPMP verified?: No Additional Instructions: f/u with pcp Allergies/Adverse Reactions: Allergies tramadol Allergy (Severe, Verified 02/18/18 23:41) itching all over dextromethorphan HBr [From NyQuil] Adverse Reaction (Verified 02/18/18 23:41) doxylamine [From NyQuil] Adverse Reaction (Verified 02/18/18 23:41) ketorolac [From Toradol] Adverse Reaction (Verified 02/18/18 23:41) prochlorperazine edisylate [From Compazine] Adverse Reaction (Verified 02/18/18 23:41) prochlorperazine maleate [From Compazine] Adverse Reaction (Verified 02/18/18 23 :41) Itching pseudoephedrine HCl [From NyQuil] Adverse Reaction (Verified 02/18/18 23:41) Itching Home Medications: Ambulatory Orders Levetiracetam [Keppra Xr] 500 mg PO BID 01/01/18 Pantoprazole Sodium 40 mg PO DAILY 01/01/18 Oxcarbazepine [Trileptal] 300 mg PO BID 02/08/18 Sennosides [Senna Lax] 8.6 mg PO BID 02/08/18 Diphenhydramine HCl [Allergy Relief] 50 mg PO BEDTIME 02/09/18 Disposition Discussed With: Patient, Family
== END 2018-02-19 00:28 | disposition home or self-care (01) ==
LOC: ED 23:36
DX: G43.809 Other migraine, not intractable, without status migrainosus (principal); F17.210 Nicotine dependence, cigarettes, uncomplicated
CPT/HCPCS: 96372; 99282